=== PATIENT | female | born 1945 | race Two or more races ===

== ENCOUNTER 2024-06-29 14:49 | Outpatient (RCR) | payer OTHER, MEDICAID, SELFPAY ==
--- NOTE | 2024-07-05 01:11 | CTCCONSULT_ITS ---
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 Ramirez for the first time in consultation here at [facility] cancer [facility]. Ms. Ramirez is accompanied by her who is helping with th e translation. Ms. Ramirez recently had cholecystectomy done 8 [facility]. Surgical pat hology specimen showed stage IIIb poorly differentiated adenocarcinoma of the gallbladder. Pathology is documented below. Ms. Ramirez has recovered very well from the surgery. She denies any abdominal pain today. Denies any nausea vomiting, diarrhea or constipation. Ambulating well without any help. Has good appetite and good energy levels. HISTORY OF PRESENT ILLNESS: Kerry Ramirez is a 79-year-old SPA speaking Other female with following oncology history. 02/24/2024: Ms. Ramirez was seen here at [facility] emergency room because of right up per quadrant abdominal pain with radiation into right upper chest. 02/24/2024: CT scan of the abdomen and pelvis with IV contrast 02/25/2024: Ms. Ramirez had MRI of the abdomen without contrast as well as MRCP 02/25/2024: Ms. Ramirez is referred to [facility] for ERCP. 02/26/2024: Ms. 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 Tobacco?Use:?Denies ETOH?Use:?Denies Drug?Note:?Denies Social?History?Note:?Lives?with? [employer] HISTORY: Menarche?-?Age:?15 Menopause:?Age?54 :?6 Live?Births:?6 Age?1st?:?24 MEDICATIONS: 1. alendronate - 35 mg 1 tab Weekly 2. atorvastatin - 10 mg 1 tab Daily 3. losartan - 100 mg 1 tab Daily 4. multivitamin - 1 tab Daily?Palabra Meds? Medications Last Reconciled by Shaila Fortune RN on 04/25/2024 ALLERGIES: No Known Drug Allergies REVIEW OF SYSTEMS: Neurological: No headache, seizures or blurring of vision. Gastrointestinal: No nausea, vomiting, diarrhea or constipation. Cardiovascular: No palpitations or angina pains. Respiratory: No cough, chest pain or shortness of breath. PHYSICAL EXAMINATION: VITAL SIGNS: Temperature?100, B/P?116/69, Height?61?inches, Oxygen?Saturation?96% Weight?128?lbs PAIN: 0 - No pain EYE: Conjunctivae is white MOUTH: Oral cavity is dry. CHEST: Clear to auscultation. No wheezes or rales audible. CARDIAC: Rhythm regular, no murmurs or gallops present. ABDOMEN: Soft. No hepatomegaly. No splenomegaly. EXTREMITIES: No pedal edema or cyanosis. ASSESSMENT and plan : 1. 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 Patient is now 3-4 months since surgery and there is concern for recurrence of disease I will like to get julia biopsy and also advised patient to follow with [facility] as her approval has b een done to see haptobilary IR guided biopsy for liver lesion and if negative can do adjuvant capecitabine. Electronically Signed by: {Object.Sanct_ID*PnP.NameFL@M}, {Object.Sanct_ID*PnP.Suffix@U} D: {Object.Sanct_Date} T: {Object.Sanct_Time} CC: PCP: Josh Watkins Referring: Josh Watkins This document was completed utilizing speech recognition software. Grammatical errors, random word in sertions, pronoun errors, and incomplete sentences are an occasional consequence of this system due t o software limitations, ambient noise, and hardware issues. Any formal questions or concerns about th e content, text or information contained within the body of this dictation should be directly address ed to the provider for clarification.
== END 2024-07-22 23:59 | disposition home or self-care (01) ==
LOC: SCTC 14:49
PROVIDERS: PCP Family Medicine; Referring Provider Internal Medicine Hematology & Oncology; Visit Provider Internal Medicine Hematology & Oncology
DX: C23 Malignant neoplasm of gallbladder (principal); Z90.49 Acquired absence of other specified parts of digestive tract; R91.1 Solitary pulmonary nodule; K76.89 Other specified diseases of liver
CPT/HCPCS: 99212; G0463

== ENCOUNTER → 2024-08-01 | Outpatient (CLI) | payer OTHER, MEDICAID, SELFPAY ==
[2024-08-01 12:39] LABS: Basophils # (Auto) 0.1 Thou/mm3 (0.0-0.2); Basophils % (Auto) 1 % (0-2.5); Eosinophils # (Auto) 0.1 Thou/mm3 (0.0-0.5); Eosinophils % (Auto) 2 % (0-10); Hematocrit 38.1 % (36.0-46.0); Hemoglobin 12.5 g/dL (12.0-16.0); Immature Granulocytes % (Auto) 0 % (0-0); Immature Granulocytes Auto 0.02 Thou/mm3 (0.00-0.00); Lymphocytes # (Auto) 1.7 Thou/mm3 (1.0-4.8); Lymphocytes % (Auto) 27 % (10-50); Mean Corpuscular HGB Conc 32.8 g/dl (31.0-37.0); Mean Corpuscular Hemoglobin 28.6 pg (25.0-35.0); Mean Corpuscular Volume 87 fL (80-100); Monocytes # (Auto) 0.5 Thou/mm3 (0.0-0.8); Monocytes % (Auto) 8 % (0-12); Neutrophils # (Auto) 3.9 Thou/mm3 (1.8-7.7); Neutrophils % (Auto) 61 % (37-80); Nucleated Red Blood Cell % 0 /100 WBC (0); Platelet Count 163 Thou/mm3 (140-440); RDW Standard Deviation 50.2 fL (36.4-46.3); Red Blood Count 4.37 Miln/mm3 (4.00-5.20); White Blood Count 6.4 Thou/mm3 (3.6-11.0)
[2024-08-01 12:50] LABS: Alanine Aminotransferase 29 U/L (10-49); Albumin, Serum 4.4 gm/dL (3.4-4.8); Albumin/Globulin Ratio 1.6 (1.2-2.2); Alkaline Phosphatase 162 U/L (46-116); Anion Gap 6 (7-16); Aspartate Amino Transferase 30 U/L (0-34); BUN/Creatinine Ratio 27 Ratio (12-20); Bilirubin,Total 0.5 mg/dL (0.3-1.2); Blood Urea Nitrogen 27 mg/dL (9-23); Calcium 9.7 mg/dL (8.3-10.6); Calcium (Corrected) 9.7 mg/dL (8.5-10.1); Carbon Dioxide 27.6 mMol/L (20.0-31.0); Chloride 106 mMol/L (98-107); Globulin 2.7 gm/dL (2.3-3.5); Glucose 98 mg/dL (74-106); Osmolality,Calculated 284 (275-295); Sodium 140 mMol/L (136-145); Total Protein 7.1 gm/dL (5.7-8.2); eGFR 57 See Note
[2024-08-01 12:56] LABS: Carcinoembryonic Antigen 2.1 ng/mL (0.0-5.0)
== END | disposition home or self-care (01) ==
PROVIDERS: PCP Family Medicine; Referring Provider Internal Medicine Hematology & Oncology; Visit Provider Internal Medicine Hematology & Oncology
DX: C23 Malignant neoplasm of gallbladder (principal)
CPT/HCPCS: 36415; 80053; 82378; 85025

== ENCOUNTER → 2024-08-07 | Outpatient (CLI) | payer OTHER, MEDICAID, SELFPAY ==
--- NOTE | 2024-08-07 14:00 | XR_ITS ---
Examination: CT abdomen, without intravenous contrast. CT pelvis, without intravenous contrast. CT abdomen, with intravenous contrast. CT pelvis, with intravenous contrast. 2-D sagittal coronal reconstructions. Date and time of exam:August 07, 2024 1513 hrs. Comparison February 24, 2024 Indications: Diagnosis unspecified lump in the left breast, malignant neoplasm of the gallbladder, liver, February 2024 restaging CTDI: vol (mGy) 25.43 DLP: (mGycm) the Technique: Multiple 3.0 axial images of the abdomen and pelvis without intravenous contrast, 3.0 mm slice thickness. Multiple 3.0 postcontrast images abdomen and pelvis also obtained, post intravenous injection 60 cc Isovue-370 2-D sagittal coronal reconstructions Low dose protocols, automated exposure control, adjustment MA KV according to patient size Findings: Absent gallbladder No focal liver lesions Spleen is not enlarged No extrahepatic biliary tract dilatation No pancreatic mass Moderate bilateral renal parenchymal scar formation, no hydronephrosis Abdominal aortic calcification no aneurysmal dilatation Normal appendix No abdominal or pelvic lymphadenopathy Colonic diverticulosis Atrophic uterus No pelvic mass Contracted urinary bladder Moderate osteopenia Impression: No liver lesions, no abdominal or pelvic lymphadenopathy Moderate bilateral renal parenchymal scar formation, no hydronephrosis Normal appendix
--- NOTE | 2024-08-07 14:57 | XR_ITS ---
Examination: CT chest with intravenous contrast 2-D sagittal and coronal reconstructions Exam date and time: August 07, 2024 at 1519 hours Comparison PET/CT scan May 26, 2024 INDICATIONS: Diagnosis malignant neoplasm gallbladder, unspecified lump upper inner quadrant left breast, liver cancer diagnosis February 2024, PET/CT scan June 01, 2024 3 mm nodule left upper lobe 15 mm hypermetabolic focus anterior right lobe liver CTDI:vol (mGy) 10.5 DLP: (mGycm) 374 Technique: Multiple axial sections of the thorax have been obtained. Sections have been obtained, 3 mm slice thickness. Mediastinal and lung density settings have been obtained. Intravenous contrast administered, 60 cc Isovue-370. 2-D sagittal, coronal images obtained. Low dose protocols were performed. One or more of the following dose reduction techniques were used; automated exposure control, adjustment of the mA and/or KV according to patient size, use of iterative reconstruction technique. Findings: No thoracic aortic aneurysm dilatation No pulmonary artery emboli on this non-CTA study No paratracheal tracheobronchial or bronchopulmonary the 3 mm pulmonary nodule left upper lobe image 79 No pneumonia or pulmonary edema or pleural disease 17 mm anterior liver lesion Absent gallbladder No pancreatic mass Moderate bilateral renal parenchymal scar formation IMPRESSION: 3 mm pulmonary nodule left upper lobe, with this study as baseline recommend 1 additional 6 month follow-up CT chest without contrast
== END | disposition home or self-care (01) ==
PROVIDERS: Referring Provider Internal Medicine Hematology & Oncology; Visit Provider Internal Medicine Hematology & Oncology
DX: R91.1 Solitary pulmonary nodule (principal); N28.89 Other specified disorders of kidney and ureter; C23 Malignant neoplasm of gallbladder
CPT/HCPCS: 71260; 74178; A4649; Q9967

== ENCOUNTER 2024-09-13 15:35 | Outpatient (RCR) | payer MEDICARE, SELFPAY ==
--- NOTE | 2024-09-24 18:15 | CTCFLWUP_ITS ---
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 Ramirez recently had cholecystectomy done 8 [facility]. Surgical pathology specimen showed stage IIIb poorly differentiated adenocarcinoma of the gallbladder. Pathology is documented below. Ms. Ramirez has recovered very well from the surgery. She denies any abdominal pain today. Denies any nausea vomiting, diarrhea or constipation. Ambulating well without any help. 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 02/24/2024: Ms. Ramirez was seen here at [facility] emergency room because of right upper quadrant abdominal pain with radiation into right upper chest. 02/24/2024: CT scan of the abdomen and pelvis with IV contrast 02/25/2024: Ms. Ramirez had MRI of the abdomen without contrast as well as MRCP 02/25/2024: Ms. Ramriez is referred to [facility] for ERCP. 02/26/2024: Ms. 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 Tobacco?Use:?Denies ETOH?Use:?Denies Drug?Note:?Denies Social?History?Note:?Lives?with? CHARGE POSTER HISTORY: Menarche?-?Age:?15 Menopause:?Age?54 :?6 Live?Births:?6 Age?1st?:?24 MEDICATIONS: 1. alendronate - 35 mg 1 tab Weekly 2. atorvastatin - 10 mg 1 tab Daily 3. capecitabine - 500 mg 4 tab Twice a Day 4. losartan - 100 mg 1 tab Daily 5. multivitamin - 1 tab Daily Medications Last Reconciled by Sharonda Cabrales MA on 09/13/2024 ALLERGIES: No Known Drug Allergies REVIEW OF SYSTEMS: A complete 14-point review of systems was performed and is negative except as noted in interval history. PHYSICAL EXAMINATION: VITAL SIGNS: Temperature?98.2, B/P?124/73, Oxygen?Saturation?96% Weight?153?lbs PAIN: 0 - No pain ECOG Performance Status: 0 - Asymptomatic and fully active GENERAL APPEARANCE: Appears well, in no apparent distress, appropriately interactive. HEENT: Normocephalic, no temporal wasting, normal conjunctiva, no scleral icterus, normal hearing, lips without lesions, neck normal range of motion. CARDIOVASCULAR: Not assessed. PULMONARY: Normal respiratory effort, no respiratory distress or use of accessory muscles, speaking in full sentences, no tachypnea. EXTREMITIES: No pedal edema or cyanosis. SKIN: Normal skin appearance. NEUROLOGIC: Alert and oriented x4. PSHYCHIATRIC: Appropriate affect, mood normal, behavior normal, intact thought and speech. LABORATORY DATA: I have personally reviewed and interpreted each of the patient?s relevant lab tests, abnormal findings are below: Date 08/01/24 ??GLUCOSE,RANDOM?(mg/dL) 98 ??BLOOD?UREA?NITROGEN?(mg/dL) 27?H ??CREATININE?(mg/dL) 1.00 ??SODIUM?(mmol/L) 140 ??POTASSIUM?(mmol/L) 4.0 ??CHLORIDE?(mmol/L) 106 ??CrCl?(CandG)?(ml/min) 46.71 ??AST/SGOT?(Unit/L) 30 ??ALT/SGPT?(Unit/L) 29 ??ALKALINE?PHOSPHATASE?(Unit/L) 162?H ??BILIRUBIN,?TOTAL?(mg/dL) 0.5 ??PROTEIN?TOTAL?(gm/dl) 7.1 ??ALBUMIN,?SERUM?(gm/dl) 4.4 ??GLOBULIN?(gm/dl) 2.7 ??ALBUMIN/GLOBULIN?RATIO 1.6 ??CALCIUM,?SERUM?(mg/dL) 9.7 ??CALCIUM?SERUM?(CORRECTED)?(mg/dL) 9.7 ASSESSMENT/PLAN: Stage IIIb(pT2a, 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 Patient was ordered to start adjuvant capecitabine but patient never started therapy Patient already referred to hepatobiliary surgeon for possible debridement of gall bladder bed and liver resection CBC, CMP, AFP, CA 19?9. Patient is now 3-4 months since surgery and there is concern for recurrence of disease.patient is scheduled for biopsy at [facility] . Will see her after the biopsy ORDERS: Cbc,cmp ,cea RETURN TO CLINIC: 4 weeks BILLING AND COMPLIANCE: I reviewed external records from providers outside my specialty as summarized above. I spent a total of 50 minutes on this patient?s care on the day of their visit excluding time spent related to any billed procedures. This time includes time spent with the patient as well as time spent documenting in the medical record, reviewing patients records and tests, obtaining history, placing orders, communicating with other healthcare professionals, counseling the patient, family or caregiver, and/or care coordination for the diagnoses above. Electronically Signed by: Daniel Gentile MD T: 6:12 PM CC: PCP: Josh Watkins Referring: Josh Watkins This document was completed utilizing speech recognition software. Grammatical errors, random word insertions, pronoun errors, and incomplete sentences are an occasional consequence of this system due to software limitations, ambient noise, and hardware issues. Any formal questions or concerns about the content, text or information contained within the body of this dictation should be directly addressed to the provider for clarification.
== END 2024-09-22 23:59 | disposition home or self-care (01) ==
LOC: SCTC 15:35
PROVIDERS: PCP Family Medicine; Referring Provider Family Medicine; Visit Provider Internal Medicine Hematology & Oncology
DX: C23 Malignant neoplasm of gallbladder (principal); R91.1 Solitary pulmonary nodule; Z90.49 Acquired absence of other specified parts of digestive tract
CPT/HCPCS: 99213; G0463

== ENCOUNTER → 2024-10-31 | Outpatient (CLI) | payer MEDICARE, SELFPAY ==
[2024-10-31 12:40] LABS: Basophils # (Auto) 0.1 Thou/mm3 (0.0-0.2); Basophils % (Auto) 1 % (0-2.5); Eosinophils # (Auto) 0.2 Thou/mm3 (0.0-0.5); Eosinophils % (Auto) 3 % (0-10); Hemoglobin 13.1 g/dL (12.0-16.0); Immature Granulocytes % (Auto) 0 % (0-0); Immature Granulocytes Auto 0.02 Thou/mm3 (0.00-0.00); Lymphocytes # (Auto) 1.5 Thou/mm3 (1.0-4.8); Lymphocytes % (Auto) 25 % (10-50); Mean Corpuscular HGB Conc 32.8 g/dl (31.0-37.0); Mean Corpuscular Hemoglobin 28.6 pg (25.0-35.0); Mean Corpuscular Volume 87 fL (80-100); Monocytes # (Auto) 0.5 Thou/mm3 (0.0-0.8); Monocytes % (Auto) 7 % (0-12); Neutrophils % (Auto) 64 % (37-80); Nucleated Red Blood Cell % 0 /100 WBC (0); Platelet Count 154 Thou/mm3 (140-440); RDW Standard Deviation 44.9 fL (36.4-46.3); Red Blood Count 4.58 Miln/mm3 (4.00-5.20); White Blood Count 6.3 Thou/mm3 (3.6-11.0)
[2024-10-31 13:01] LABS: Carcinoembryonic Antigen 1.7 ng/mL (0.0-5.0)
[2024-10-31 13:03] LABS: Alanine Aminotransferase 20 U/L (10-49); Albumin, Serum 4.3 gm/dL (3.4-4.8); Albumin/Globulin Ratio 1.7 (1.2-2.2); Alkaline Phosphatase 138 U/L (46-116); Anion Gap 9 (7-16); Aspartate Amino Transferase 25 U/L (0-34); BUN/Creatinine Ratio 25 Ratio (12-20); Bilirubin,Total 0.5 mg/dL (0.3-1.2); Blood Urea Nitrogen 28 mg/dL (9-23); Calcium 9.6 mg/dL (8.3-10.6); Calcium (Corrected) 9.6 mg/dL (8.5-10.1); Carbon Dioxide 24.9 mMol/L (20.0-31.0); Chloride 108 mMol/L (98-107); Creatinine (Component) 1.1 mg/dL (0.6-1.3); Globulin 2.6 gm/dL (2.3-3.5); Glucose 101 mg/dL (74-106); Osmolality,Calculated 288 (275-295); Potassium 4.1 mMol/L (3.4-5.1); Sodium 142 mMol/L (136-145); Total Protein 6.9 gm/dL (5.7-8.2); eGFR 51 See Note
== END | disposition home or self-care (01) ==
LOC: SCTO 12:12
PROVIDERS: PCP Family Medicine; Referring Provider Internal Medicine Hematology & Oncology; Visit Provider Internal Medicine Hematology & Oncology
DX: C23 Malignant neoplasm of gallbladder (principal)
CPT/HCPCS: 36415; 80053; 82378; 85025

== ENCOUNTER 2024-11-01 15:40 | Outpatient (RCR) | payer MEDICARE, SELFPAY ==
--- NOTE | 2024-11-19 23:08 | CTCFLWUP_ITS ---
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 Ramirez recently had cholecystectomy done 8 [facility]. Surgical pathology specimen showed stage IIIb poorly differentiated adenocarcinoma of the gallbladder. Pathology is documented below. Ms. Ramirez has recovered very well from the surgery. She denies any abdominal pain today. Denies any nausea vomiting, diarrhea or constipation. Ambulating well without any help. 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 02/24/2024: Ms. Ramirez was seen here at [facility] emergency room because of right upper quadrant abdominal pain with radiation into right upper chest. 02/24/2024: CT scan of the abdomen and pelvis with IV contrast 02/25/2024: Ms. Ramirez had MRI of the abdomen without contrast as well as MRCP 02/25/2024: Ms. Ramirez is referred to [facility] for ERCP. 02/26/2024: Ms. 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 Tobacco?Use:?Denies ETOH?Use:?Denies Drug?Note:?Denies Social?History?Note:?Lives?with? 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 alendronate - 35 mg 1 tab Weekly 2. atorvastatin - 10 mg 1 tab Daily 3. capecitabine - 500 mg 4 tab Twice a Day 4. losartan - 100 mg 1 tab Daily 5. multivitamin - 1 tab Daily Medications Last Reconciled by Sharonda Cabrales MA on 11/01/2024 ALLERGIES: No Known Drug Allergies REVIEW OF SYSTEMS: A complete 14-point review of systems was performed and is negative except as noted in interval history. PHYSICAL EXAMINATION: VITAL SIGNS: Temperature?99.6, B/P?115/81, Oxygen?Saturation?95% Weight?156?lbs PAIN: 0 - No pain GENERAL APPEARANCE: Appears well, in no apparent distress, appropriately interactive. HEENT: Normocephalic, no temporal wasting, normal conjunctiva, no scleral icterus, normal hearing, lips without lesions, neck normal range of motion. CARDIOVASCULAR: Not assessed. PULMONARY: Normal respiratory effort, no respiratory distress or use of accessory muscles, speaking in full sentences, no tachypnea. EXTREMITIES: No pedal edema or cyanosis. SKIN: Normal skin appearance. NEUROLOGIC: Alert and oriented x4. PSHYCHIATRIC: Appropriate affect, mood normal, behavior normal, intact thought and speech. LABORATORY DATA: I have personally reviewed and interpreted each of the patient?s relevant lab tests, abnormal findings are below: Date 08/01/24 10/31/24 ??WHITE?BLOOD?COUNT?(Thou/mm3) ? 6.3 ??RED?BLOOD?COUNT?(Miln/mm3) ? 4.58 ??HEMOGLOBIN?(gm/dl) ? 13.1 ??HEMATOCRIT?(%) ? 40.0 ??PLATELET?COUNT?(Thou/mm3) ? 154 ??NEUTROPHILS?%,?AUTO?(%) ? 64 ??LYMPH?%,?AUTO?(%) ? 25 ??NEUTROPHILS,?AUTO?(Thou/mm3) ? 4.0 ??GLUCOSE,RANDOM?(mg/dL) 98 101 ??BLOOD?UREA?NITROGEN?(mg/dL) 27?H 28?H ??CREATININE?(mg/dL) 1.00 1.10 ??SODIUM?(mmol/L) 140 142 ??POTASSIUM?(mmol/L) 4.0 4.1 ??CHLORIDE?(mmol/L) 106 108?H ??CrCl?(CandG)?(ml/min) 46.71 38.09 ??AST/SGOT?(Unit/L) 30 25 ??ALT/SGPT?(Unit/L) 29 20 ??ALKALINE?PHOSPHATASE?(Unit/L) 162?H 138?H ??BILIRUBIN,?TOTAL?(mg/dL) 0.5 0.5 ??PROTEIN?TOTAL?(gm/dl) 7.1 6.9 ??ALBUMIN,?SERUM?(gm/dl) 4.4 4.3 ??GLOBULIN?(gm/dl) 2.7 2.6 ??ALBUMIN/GLOBULIN?RATIO 1.6 1.7 ??CALCIUM,?SERUM?(mg/dL) 9.7 9.6 ??CALCIUM?SERUM?(CORRECTED)?(mg/dL) 9.7 9.6 ??CEA?(O*)?(ng/ml) ? 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 Patient was ordered to start adjuvant capecitabine but patient never started therapy Patient already referred to hepatobiliary surgeon for possible debridement of gall bladder bed and liver resection CBC, CMP, AFP, CA 19?9. Patient is now 3-4 months since surgery and there is concern for recurrence of disease.patient is scheduled for biopsy at [facility] . Patient had her biopsy and was that the [facility] will call her She is till to get results Follow up after the results ORDERS: Please get records from [facility] for biopsy,result,imaging ,notes RETURN TO CLINIC: 6 weeks BILLING AND COMPLIANCE: I reviewed external records from providers outside my specialty as summarized above. I spent a total of 50 minutes on this patient?s care on the day of their visit excluding time spent related to any billed procedures. This time includes time spent with the patient as well as time spent documenting in the medical record, reviewing patients records and tests, obtaining history, placing orders, communicating with other healthcare professionals, counseling the patient, family or caregiver, and/or care coordination for the diagnoses above. Electronically Signed by: Daniel Gentile MD T: 11:05 PM CC: PCP: Josh Watkins Referring: Josh Watkins This document was completed utilizing speech recognition software. Grammatical errors, random word insertions, pronoun errors, and incomplete sentences are an occasional consequence of this system due to software limitations, ambient noise, and hardware issues. Any formal questions or concerns about the content, text or information contained within the body of this dictation should be directly addressed to the provider for clarification.
== END 2024-11-20 23:59 | disposition home or self-care (01) ==
LOC: SCTC 15:40
PROVIDERS: PCP Family Medicine; Referring Provider Family Medicine; Visit Provider Internal Medicine Hematology & Oncology
DX: C23 Malignant neoplasm of gallbladder (principal); Z90.49 Acquired absence of other specified parts of digestive tract; R91.1 Solitary pulmonary nodule; K76.89 Other specified diseases of liver
CPT/HCPCS: 99212; G0463

== ENCOUNTER → 2025-01-02 | Outpatient (CLI) | payer MEDICARE, MEDICAID, SELFPAY ==
[2025-01-02 10:58] LABS: Vitamin D 25 Hydroxy Total 91.2 ng/mL (7.3-40.2)
[2025-01-02 11:01] LABS: Alanine Aminotransferase 18 U/L (10-49); Albumin, Serum 4.5 gm/dL (3.4-4.8); Albumin/Globulin Ratio 1.6 (1.2-2.2); Alkaline Phosphatase 111 U/L (46-116); Anion Gap 13 (7-16); Aspartate Amino Transferase 24 U/L (0-34); BUN/Creatinine Ratio 24 Ratio (12-20); Blood Urea Nitrogen 24 mg/dL (9-23); Calcium 8.9 mg/dL (8.3-10.6); Calcium (Corrected) 8.9 mg/dL (8.5-10.1); Carbon Dioxide 21.4 mMol/L (20.0-31.0); Cardiac Risk Estimate 3.4 RATIO (3.7-5.6); Chloride 109 mMol/L (98-107); Cholesterol 175 mg/dL (132-200); Free T4 (Free Thyroxine) 1.16 ng/dL (0.89-1.76); Globulin 2.8 gm/dL (2.3-3.5); Glucose 103 mg/dL (74-106); HDL Cholesterol 51 mg/dL (40-60); LDL Cholesterol,Calculated 102 mg/dL (0-130); Osmolality,Calculated 288 (275-295); Potassium 3.9 mMol/L (3.4-5.1); Sodium 143 mMol/L (136-145); Thyroid Stimulating Hormone 3.39 uIU/mL (0.55-4.78); Total Protein 7.3 gm/dL (5.7-8.2); Triglycerides 111 mg/dL (30-150); eGFR 57 See Note
== END | disposition home or self-care (01) ==
LOC: COPL 09:04
PROVIDERS: PCP Family Medicine; Referring Provider Family Medicine; Visit Provider Family Medicine
DX: E78.1 Pure hyperglyceridemia (principal); E55.9 Vitamin D deficiency, unspecified; E03.2 Hypothyroidism due to medicaments and other exogenous substances; Z13.1 Encounter for screening for diabetes mellitus
CPT/HCPCS: 36415; 80053; 80061; 82306; 84439; 84443

== ENCOUNTER → 2025-01-03 | Outpatient (CLI) | payer MEDICARE, MEDICAID, SELFPAY ==
[2025-01-01 15:06] VITALS: BMI 30.2
[2025-01-02 15:37] LABS: Basophils # (Auto) 0.1 Thou/mm3 (0.0-0.2); Basophils % (Auto) 1 % (0-2.5); Eosinophils # (Auto) 0.1 Thou/mm3 (0.0-0.5); Eosinophils % (Auto) 2 % (0-10); Hemoglobin 12.9 g/dL (12.0-16.0); Immature Granulocytes % (Auto) 0 % (0-0); Immature Granulocytes Auto 0.01 Thou/mm3 (0.00-0.00); Lymphocytes # (Auto) 1.5 Thou/mm3 (1.0-4.8); Lymphocytes % (Auto) 24 % (10-50); Mean Corpuscular HGB Conc 33.9 g/dl (31.0-37.0); Mean Corpuscular Hemoglobin 28.5 pg (25.0-35.0); Mean Corpuscular Volume 84 fL (80-100); Monocytes # (Auto) 0.5 Thou/mm3 (0.0-0.8); Monocytes % (Auto) 8 % (0-12); Neutrophils % (Auto) 64 % (37-80); Nucleated Red Blood Cell % 0 /100 WBC (0); Platelet Count 125 Thou/mm3 (140-440); RDW Standard Deviation 45.5 fL (36.4-46.3); Red Blood Count 4.52 Miln/mm3 (4.00-5.20); White Blood Count 6.2 Thou/mm3 (3.6-11.0)
[2025-01-02 15:45] LABS: Partial Thromboplastin Time 26.9 Seconds (22.0-36.0); Prothrombin Time 10.9 Seconds (9.0-12.2)
[2025-01-03] VITALS (8 sets, daily range): BP systolic 150–185; BP diastolic 89–108; PULSE 66–86; RESP 17–22; TEMP 36.2–36.8; O2SAT 94–100
--- NOTE | 2025-01-03 09:30 | XR_ITS ---
Examination: IR venous implantation Port-A-Cath Ultrasound-guided needle placement right internal jugular vein. Fluoroscopy AP Chest, portable single view Exam date and time: Diagnosis malignant neoplasm gallbladder requiring long-term intravenous chemotherapy. Informed consent provided Technique: A timeout was completed, verifying correct patient, procedure, site, positioning, and special equipment if applicable The patient was placed in a dependent position appropriate for central line placement based on the vein to be cannulated. The patient's neck was prepped and draped in sterile fashion. Maximum Sterile Barrier Technique used including cap, mask, sterile gown, sterile gloves, and sterile full body drape. If ultrasound technique used: sterile gel and sterile probe covers. Hand Hygiene performed using proper scrub, soap and water, or alcohol-based hand rub. Site right portable apparatus utilized to confirm patency of the right internal jugular vein, utilizing ultrasonographic guidance successful 21-gauge needle puncture into the right internal jugular vein Ultrasound images were recorded and stored. Successful micropuncture with a 21-gauge needle was performed. 0.18 wire guide was introduced into the IVC under fluoroscopic guidance. Blunt dissection utilized to form Port-A-Cath pocket in the subcutaneous tissue upper right chest 8 [place] 21 cm Port-A-Cath line then placed through a venous sheath into the superior vena cava and connected to the Port-A-Cath reservoir The attending radiologist was present for the entire procedure Estimated blood loss2 cc. Findings: Under fluoroscopy, the tip of the Port-A-Cath is in good position in the vena cava. Portable chest x-ray, post Port-A-Cath placement, as ordered. Impression: Successful ultrasound-guided needle placement right internal jugular vein. Successful IR venous implantation Port-A-Cath Fluoroscopy 0.1 minute radiation dose 1.07 milligray 1 spot fluoroscopic chest film. AP portable chest completion procedure demonstrates satisfactory position Port-A-Cath tip SVC. May use Port-A-Cath.
[2025-01-03] MEDS: ceFAZolin INJ 1 GM VIAL STFIELD (11:00)
[2025-01-03] MEDS: HEPARIN SOD LOCK SYR 100 UNIT/ML 500 UNIT STFIELD (11:00)
[2025-01-03] MEDS: ceFAZolin/D5W 1 GM IVPB 1 GM/50 ML BAG IV (11:15)
[2025-01-03] MEDS: fentaNYL CIT INJ 50 mCg/ML AMP 2ML 125 MCG IVP (11:43)
[2025-01-03] MEDS: LIDOCAINE 1% W/EPI 1:100K 20 ML VIAL 6 ML INFL (11:45)
[2025-01-03] MEDS: LIDOCAINE INJ PF 1% 30 ML VIAL 7 ML INFL (11:45)
== END | disposition home or self-care (01) ==
PROVIDERS: Radiology Diagnostic Radiology; PCP Family Medicine; Referring Provider Internal Medicine Hematology & Oncology; Visit Provider Internal Medicine Hematology & Oncology
DX: C23 Malignant neoplasm of gallbladder (principal); Z01.812 Encounter for preprocedural laboratory examination
CPT/HCPCS: 36571; 36415; 76937; 77001; 85025; 85610; 85730; C1769; C1788; C1894; J0689; J0690; J1642; J3010; J3490; J7050

== ENCOUNTER → 2025-01-12 | Outpatient (CLI) | payer MEDICARE, MEDICAID, SELFPAY ==
--- NOTE | 2025-01-12 09:42 | XR_ITS ---
Examination: IR staple removal Port-A-Cath incision site Date and time: January 12, 2025 0942 hours INDICATIONS: IR venous implantation Port-A-Cath January 03, 2025, patient returns for removal of barbara Technique an findings: Sterile drape applied after skin prepped over the Port-A-Cath incision site and hygiene Successful removal of the barbara at the incision site with no blood loss IMPRESSION: Successful IR staple removal Port-A-Cath incision site
--- NOTE | 2025-01-12 10:04 | PC.NURSE ---
patient arrived for staple removal. seven barbara removed. patient tolerated well. site is soft, flat, nontender, and no signs of hematoma as well as no signs of infection. education given to patient. patient expressed verbal understanding.
== END | disposition home or self-care (01) ==
PROVIDERS: PCP Internal Medicine Hematology & Oncology; Referring Provider Radiology Diagnostic Radiology; Visit Provider Radiology Diagnostic Radiology
DX: Z48.02 Encounter for removal of sutures (principal)

== ENCOUNTER 2025-01-17 07:45 | Outpatient (RCR) | payer MEDICARE, MEDICAID, SELFPAY ==
--- NOTE | 2024-12-26 06:24 | CTCFLWUP_ITS ---
Patient: KERRY RAMIREZ : 1945 Page 4 of 5 FOLLOW UP NOTE DATE OF SERVICE: 12/25/2024 NAME: KERRY RAMIREZ ACCOUNT: [id number] : 1945 AGE: 79 INTERVAL HISTORY: Visit summary Kerry Ramirez, a female with stage 4 gallbladder adenocarcinoma, presented for chemotherapy discussion. Her history includes T2N1 gallbladder adenocarcinoma diagnosed February 2024 following cholecystectomy, with subsequent PET-CT showing liver and lung lesions. Diagnostic laparoscopy in September 2024 confirmed peritoneal disease. Recent CT showed decreased liver lesion size (1.3 cm) with no new metastases. Treatment plan includes initiating cisplatin, gemcitabine, and durvalumab chemotherapy, port placement, baseline hearing test, IV hydration, and follow-up imaging after 4 cycles. Subjective Chief Complaint Follow-up for stage 4 gallbladder cancer, discussion of chemotherapy treatment History of Present Illness Kerry Ramirez is a patient with a history of gallbladder adenocarcinoma presenting for follow-up and discussion of chemotherapy treatment. The patient was diagnosed with stage 4 gallbladder cancer in September 2024 following a gallstone and choledocholithiasis surgery performed on February 25, 2024. The pa thology report from the surgery revealed a 1.2 cm T2N1 gallbladder adenocarcinoma with negative margins. Following her initial diagnosis, the patient underwent a PET-CT scan on June 01, 2024, which showed a 3 mm left upper lobe lung nodule and a 15 mm right anterior liver lesion concerning for metastatic disease. She was subsequently referred for surgical evaluation, and on October 09, 2024, underwent a diagnostic laparoscopy. During the procedure, studding along the falciform ligament was found, indicating peritoneal disease. Pathology confirmed malignancy. The patient was then referred for therapeutic discussion, where gemcitabine and durvalumab treatment for 6 months, followed by durvalumab maintenance, was recommended based on the TOPAZ-[address] trial. A recent CT scan showed a decrease in the size of the liver lesion to 1.3 cm, with no new or enlarging metastases. The patient has not yet started chemotherapy, despite recommendations from [place] in September to begin IV chemotherapy. She is now presenting to discuss and potentially initiate chemotherapy treatment. Medical History - Gallbladder adenocarcinoma, stage 4, diagnosed in September 2024 - Gallstone and choledocholithiasis, diagnosed on February 25, 2024 Surgical History - Diagnostic laparoscopy on 10-09-2024, revealing peritoneal disease - Cholecystectomy on 02-25-2024 for gallstone and choledocholithiasis, without bile spillage Medications and Supplements - Capecitabine - Offered previously but not started. Social History - Living Situation: Patient has a Objective Laboratory, Imaging, and Diagnostic Test Results - PET-CT scan (06/01/2024): - 3 mm left upper lobe lung nodule - 15 mm right anterior liver lesion - Diagnostic laparoscopy (10/09/2024): - Intraoperative findings: Studding along the falciform ligament - Pathology: Consistent with malignancy - CA 19-9: Not measurable - CEA: Normal (specific value not provided) - CT scan (date not specified, after previous scan): - Liver lesion decreased to 1.3 cm - No new or enlarging metastases ONCOLOGY HISTORY: DIAGNOSIS: Stage IV adenocarcinoma of gallbladder Initially stage IIIb(pT2a, PN 1, 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 Ramirez recently had cholecystectomy done 8 [facility]. Surgical pathology specimen showed stage IIIb poorly differentiated adenocarcinoma of the gallbladder. Pathology is documented below. Ms. Ramirez has recovered very well from the surgery. She denies any abdominal pain today. Denies any nausea vomiting, diarrhea or constipation. Ambulating well without any help. Has good appetite and good energy level DATE OF DIAGNOSIS: 02/26/2024 STAGE/TNM: Stage IIIb(pT2a, PN 1, M0) poorly differentiated adenocarcinoma of the gallbladder, s/p cholecystectomy September 2024 confirmed as stage IV TREATMENT HISTORY: Care?Plan Start?Date Cycle Day Intent Durvalumab,?cisplatin?and?gemcitabine?cholangiocarcinoma?regimen?1 12/25/2024 1 21 Palliative HISTORY OF PRESENT ILLNESS: Kerry Ramirez is a 79-year-old SPA speaking Other female with following oncology history. 02/24/2024: Ms. Ramirez was seen here at [facility] emergency room because of right upper quadrant abdominal pain with radiation into right upper chest. 02/24/2024: CT scan of the abdomen and pelvis with IV contrast 02/25/2024: Ms. Ramirez had MRI of the abdomen without contrast as well as MRCP 02/25/2024: Ms. Ramirez is referred to [facility] for ERCP. 02/26/2024: Ms. 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 Tobacco?Use:?Denies ETOH?Use:?Denies Drug?Note:?Denies Social?History?Note:?Lives?with? SOFTWARE DESIGN ENGINEER HISTORY: Menarche?-?Age:?15 Menopause:?Age?54 :?6 Live?Births:?6 Age?1st?:?24 MEDICATIONS: 1. alendronate - 35 mg 1 tab Weekly 2. atorvastatin - 10 mg 1 tab Daily 3. losartan - 100 mg 1 tab Daily Medications Last Reconciled by Griselda Gomez MA on 12/25/2024 ALLERGIES: No Known Drug Allergies REVIEW OF SYSTEMS: A complete 14-point review of systems was performed and is negative except as noted in interval history. PHYSICAL EXAMINATION: VITAL SIGNS: Temperature?98, B/P?138/81, Oxygen?Saturation?96% PAIN: 0 - No pain GENERAL APPEARANCE: Appears well, in no apparent distress, appropriately interactive. HEENT: Normocephalic, no temporal wasting, normal conjunctiva, no scleral icterus, normal hearing, lips without lesions, neck normal range of motion. CARDIOVASCULAR: Not assessed. PULMONARY: Normal respiratory effort, no respiratory distress or use of accessory muscles, speaking in full sentences, no tachypnea. EXTREMITIES: No pedal edema or cyanosis. SKIN: Normal skin appearance. NEUROLOGIC: Alert and oriented x4. PSHYCHIATRIC: Appropriate affect, mood normal, behavior normal, intact thought and speech. LABORATORY DATA: I have personally reviewed and interpreted each of the patient?s relevant lab tests, abnormal findings are below: Date 08/01/24 10/31/24 ??WHITE?BLOOD?COUNT?(Thou/mm3) ? 6.3 ??RED?BLOOD?COUNT?(Miln/mm3) ? 4.58 ??HEMOGLOBIN?(gm/dl) ? 13.1 ??HEMATOCRIT?(%) ? 40.0 ??PLATELET?COUNT?(Thou/mm3) ? 154 ??NEUTROPHILS?%,?AUTO?(%) ? 64 ??LYMPH?%,?AUTO?(%) ? 25 ??NEUTROPHILS,?AUTO?(Thou/mm3) ? 4.0 ??GLUCOSE,RANDOM?(mg/dL) 98 101 ??BLOOD?UREA?NITROGEN?(mg/dL) 27?H 28?H ??CREATININE?(mg/dL) 1.00 1.10 ??SODIUM?(mmol/L) 140 142 ??POTASSIUM?(mmol/L) 4.0 4.1 ??CHLORIDE?(mmol/L) 106 108?H ??CrCl?(CandG)?(ml/min) 46.71 38.09 ??AST/SGOT?(Unit/L) 30 25 ??ALT/SGPT?(Unit/L) 29 20 ??ALKALINE?PHOSPHATASE?(Unit/L) 162?H 138?H ??BILIRUBIN,?TOTAL?(mg/dL) 0.5 0.5 ??PROTEIN?TOTAL?(gm/dl) 7.1 6.9 ??ALBUMIN,?SERUM?(gm/dl) 4.4 4.3 ??GLOBULIN?(gm/dl) 2.7 2.6 ??ALBUMIN/GLOBULIN?RATIO 1.6 1.7 ??CALCIUM,?SERUM?(mg/dL) 9.7 9.6 ??CALCIUM?SERUM?(CORRECTED)?(mg/dL) 9.7 9.6 ??CEA?(O*)?(ng/ml) ? 1.7 ASSESSMENT/PLAN: Initially presented as stage IIIb(pT2a, 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 Patient was advised to start adjuvant capecitabine but patient never started therapy. Patient waited as family wanted to confirm with [place] before starting chemotherapy. Patient was seen by Dr. Chan hepatobiliary surgeon for possible debridement of gall bladder bed and liver resection. Patient underwent laparoscopy which confirmed peritoneal lesions as stage IV gallbladder cancer. Patient is now here to start chemotherapy as per [place] recommendation Kerry Ramirez is a patient with stage 4 gallbladder adenocarcinoma, initially diagnosed in February 2024, who has been recommended to start chemotherapy. Stage 4 Gallbladder Adenocarcinoma Assessment: Patient was initially diagnosed with T2N1 gallbladder adenocarcinoma (1.2 cm) in February 2024 following surgery for gallstone and choledocholithiasis. She did not receive adjuvant chemotherapy at that time. A PET-CT scan in May 2024 revealed a 3 mm left upper lobe lung nodule and a 15 mm right anterior liver lesion concerning for metastatic disease. Diagnostic laparoscopy in September 2024 confirmed peritoneal disease. Recent CT scan showed a decrease in the size of the liver lesion to 1.3 cm, with no new or enlarging metastases. The patient has been recommended to start chemotherapy, which should have been initiated earlier based on the September recommendation from [place]. Plan: - Order CT scan of chest, abdomen, and pelvis with IV contrast - Order tumor markers: CEA and CA99 - Schedule port catheter placement for chemotherapy infusion - Initiate chemotherapy regimen: cisplatin, gemcitabine, and durvalumab - Perform baseline hearing test - Provide IV hydration during chemotherapy to prevent renal injury - Advise patient to drink 2-3 liters of water daily - Repeat scan after 4 cycles to assess response - Monitor thyroid function with TSH and T4 labs - Schedule follow-up appointment in 4 weeks - Instruct patient to call Nesha after 7 days for approval follow-up Informed consent: Risks of chemotherapy including nausea, vomiting, neuropathy, and hearing loss were discussed. Patient's consented to proceed with chemotherapy. RETURN TO CLINIC: 4 weeks BILLING AND COMPLIANCE: I reviewed external records from providers outside my specialty as summarized above. I spent a total of 50 minutes on this patient?s care on the day of their visit excluding time spent related to any billed procedures. This time includes time spent with the patient as well as time spent documenting in the medical record, reviewing patients records and tests, obtaining history, placing orders, communicating with other healthcare professionals, counseling the patient, family or caregiver, and/or care coordination for the diagnoses above. Electronically Signed by: Daniel Gentile MD T: 6:21 AM CC: PCP: Josh Watkins Referring: Josh Watkins This document was completed utilizing speech recognition software. Grammatical errors, random word insertions, pronoun errors, and incomplete sentences are an occasional consequence of this system due to software limitations, ambient noise, and hardware issues. Any formal questions or concerns about the content, text or information contained within the body of this dictation should be directly addressed to the provider for clarification.
== END 2025-01-20 23:59 | disposition home or self-care (01) ==
LOC: SCTC 07:45
PROVIDERS: PCP Family Medicine; Referring Provider Family Medicine; Visit Provider Internal Medicine Hematology & Oncology
DX: C23 Malignant neoplasm of gallbladder (principal); C78.7 Secondary malignant neoplasm of liver and intrahepatic bile duct; Z90.49 Acquired absence of other specified parts of digestive tract
CPT/HCPCS: 36591; 99213; A4216; J1642; G0463

== ENCOUNTER → 2025-01-22 | Outpatient (CLI) | payer MEDICARE, MEDICAID, SELFPAY ==
--- NOTE | 2025-01-22 11:30 | XR_ITS ---
Examination: CT chest, without intravenous contrast. CT abdomen, without intravenous contrast. CT pelvis, without intravenous contrast. CT chest without intravenous contrast CT abdomen without intravenous contrast CT pelvis without intravenous contrast 2-D sagittal and coronal reconstructions. 3-D reconstructions. Date and time of exam:January 22, 2025 1249 hours Comparison August 07, 2024, MRI abdomen June 20, 2024, PET CT scan June 01, 2024 INDICATIONS: Diagnosis malignant neoplasm gallbladder liver cancer February 2024, restaging, 3 mm pulmonary nodule left upper lobe on CT chest August 07, 2024 CTDI vol (mgy) 18.9 DLP ([id number])1270 Technique: Multiple CT images, 3.0 mm slice thickness, obtained chest, abdomen, pelvis, with the high-resolution 64 slice scanner.. Sagittal and coronal 2-D reconstructions are obtained. 3-D reconstructions Low dose protocols were performed. One or more of the following dose reduction techniques were used; automated exposure control, adjustment of the mA and/or KV according to patient size, use of iterative reconstruction technique. Findings: Thoracic aortic calcification no aneurysmal dilatation Pulmonary artery segments are not enlarged No paratracheal tracheobronchial or bronchopulmonary adenopathy Stable 3 mm pulmonary nodule left upper lobe, no new pulmonary nodules No pneumonia or pulmonary edema or pleural disease 15 mm nonenhancing cystic-appearing lesion anterior upper right lobe of the liver on the postcontrast images No abnormal enhancing liver lesion Absent gallbladder 11 mm splenic cyst Common hepatic duct 11 mm no common bile duct common hepatic duct stones Moderate renal parenchymal scar formation, no hydronephrosis No abdominal or pelvic lymphadenopathy 18 mm umbilical hernia defect containing colon, the bowel loop is not incarcerated no bowel obstruction Colonic diverticulosis Retroverted atrophic uterus Urinary bladder intact Moderate osteopenia IMPRESSION: Stable 3 mm pulmonary nodule left upper lobe, no new pulmonary nodules 15 mm nonenhancing cystic-appearing lesion anterior right upper lobe of the liver on the postcontrast images, no abnormal enhancing liver lesions No interval abdominal or pelvic lymphadenopathy 18 mm umbilical hernia defect containing transverse colon, the bowel is not incarcerated, no bowel obstruction
== END | disposition home or self-care (01) ==
PROVIDERS: PCP Family Medicine; Referring Provider Internal Medicine Hematology & Oncology; Visit Provider Internal Medicine Hematology & Oncology
DX: R91.8 Other nonspecific abnormal finding of lung field (principal); K76.89 Other specified diseases of liver; K42.9 Umbilical hernia without obstruction or gangrene; C23 Malignant neoplasm of gallbladder
CPT/HCPCS: 71270; 74178; A4649; Q9967

== ENCOUNTER → 2025-03-16 | Outpatient (CLI) | payer MEDICARE, MEDICAID, SELFPAY ==
[2025-03-16 09:42] LABS: Free T4 (Free Thyroxine) 1.29 ng/dL (0.89-1.76); Thyroid Stimulating Hormone 4.00 uIU/mL (0.55-4.78)
== END | disposition home or self-care (01) ==
LOC: COPL 08:18
PROVIDERS: PCP Family Medicine; Referring Provider Family Medicine; Visit Provider Family Medicine
DX: E03.2 Hypothyroidism due to medicaments and other exogenous substances (principal)
CPT/HCPCS: 36415; 84439; 84443

== ENCOUNTER 2025-03-22 09:19 | Outpatient (RCR) | payer MEDICARE, MEDICAID, SELFPAY ==
[2025-02-20 08:48] LABS: Basophils # (Auto) 0.0 Thou/mm3 (0.0-0.2); Basophils % (Auto) 1 % (0-2.5); Eosinophils # (Auto) 0.1 Thou/mm3 (0.0-0.5); Eosinophils % (Auto) 2 % (0-10); Hematocrit 36.8 % (36.0-46.0); Hemoglobin 12.5 g/dL (12.0-16.0); Immature Granulocytes Auto 0.03 Thou/mm3 (0.00-0.00); Lymphocytes # (Auto) 1.7 Thou/mm3 (1.0-4.8); Lymphocytes % (Auto) 30 % (10-50); Mean Corpuscular HGB Conc 34.0 g/dl (31.0-37.0); Mean Corpuscular Hemoglobin 29.1 pg (25.0-35.0); Mean Corpuscular Volume 86 fL (80-100); Monocytes # (Auto) 0.6 Thou/mm3 (0.0-0.8); Monocytes % (Auto) 10 % (0-12); Neutrophils # (Auto) 3.2 Thou/mm3 (1.8-7.7); Neutrophils % (Auto) 57 % (37-80); Nucleated Red Blood Cell # 0.00 Thou/mm3 (0.00-0.00); Nucleated Red Blood Cell % 0 /100 WBC (0); Platelet Count 168 Thou/mm3 (140-440); RDW Standard Deviation 44.9 fL (36.4-46.3); Red Blood Count 4.29 Miln/mm3 (4.00-5.20); White Blood Count 5.5 Thou/mm3 (3.6-11.0)
[2025-02-20 09:01] LABS: Magnesium 2.1 mg/dL (1.6-2.6)
[2025-02-20 09:05] LABS: Alanine Aminotransferase 17 U/L (10-49); Albumin, Serum 4.4 gm/dL (3.4-4.8); Albumin/Globulin Ratio 1.8 (1.2-2.2); Alkaline Phosphatase 124 U/L (46-116); Anion Gap 6 (7-16); Aspartate Amino Transferase 22 U/L (0-34); BUN/Creatinine Ratio 12 Ratio (12-20); Bilirubin,Total 0.7 mg/dL (0.3-1.2); Blood Urea Nitrogen 12 mg/dL (9-23); Calcium 9.1 mg/dL (8.3-10.6); Calcium (Corrected) 9.1 mg/dL (8.5-10.1); Carbon Dioxide 23.7 mMol/L (20.0-31.0); Chloride 112 mMol/L (98-107); Creatinine (Component) 1.0 mg/dL (0.6-1.3); Free T4 (Free Thyroxine) 1.30 ng/dL (0.89-1.76); Globulin 2.5 gm/dL (2.3-3.5); Glucose 95 mg/dL (74-106); Osmolality,Calculated 282 (275-295); Potassium 3.8 mMol/L (3.4-5.1); Sodium 142 mMol/L (136-145); Thyroid Stimulating Hormone 3.93 uIU/mL (0.55-4.78); Total Protein 6.9 gm/dL (5.7-8.2); eGFR 57 See Note
[2025-02-27 10:47] LABS: Magnesium 1.7 mg/dL (1.6-2.6)
[2025-02-27 10:52] LABS: Basophils # (Auto) 0.1 Thou/mm3 (0.0-0.2); Basophils % (Auto) 3 % (0-2.5); Eosinophils # (Auto) 0.0 Thou/mm3 (0.0-0.5); Eosinophils % (Auto) 1 % (0-10); Hematocrit 33.7 % (36.0-46.0); Hemoglobin 11.5 g/dL (12.0-16.0); Immature Granulocytes Auto 0.12 Thou/mm3 (0.00-0.00); Lymphocytes # (Auto) 1.1 Thou/mm3 (1.0-4.8); Lymphocytes % (Auto) 39 % (10-50); Mean Corpuscular HGB Conc 34.1 g/dl (31.0-37.0); Mean Corpuscular Hemoglobin 29.0 pg (25.0-35.0); Mean Corpuscular Volume 85 fL (80-100); Monocytes # (Auto) 0.3 Thou/mm3 (0.0-0.8); Monocytes % (Auto) 11 % (0-12); Neutrophils # (Auto) 1.2 Thou/mm3 (1.8-7.7); Neutrophils % (Auto) 43 % (37-80); Nucleated Red Blood Cell # 0.00 Thou/mm3 (0.00-0.00); Nucleated Red Blood Cell % 0 /100 WBC (0); Platelet Count 238 Thou/mm3 (140-440); RDW Standard Deviation 45.4 fL (36.4-46.3); Red Blood Count 3.97 Miln/mm3 (4.00-5.20)
[2025-02-27 10:53] LABS: Alanine Aminotransferase 21 U/L (10-49); Albumin, Serum 4.3 gm/dL (3.4-4.8); Albumin/Globulin Ratio 1.9 (1.2-2.2); Alkaline Phosphatase 137 U/L (46-116); Anion Gap 9 (7-16); Aspartate Amino Transferase 23 U/L (0-34); BUN/Creatinine Ratio 14 Ratio (12-20); Bilirubin,Total 0.4 mg/dL (0.3-1.2); Blood Urea Nitrogen 14 mg/dL (9-23); Calcium 9.0 mg/dL (8.3-10.6); Calcium (Corrected) 9.0 mg/dL (8.5-10.1); Carbon Dioxide 24.8 mMol/L (20.0-31.0); Chloride 105 mMol/L (98-107); Creatinine (Component) 1.0 mg/dL (0.6-1.3); Free T4 (Free Thyroxine) 1.17 ng/dL (0.89-1.76); Globulin 2.3 gm/dL (2.3-3.5); Glucose 99 mg/dL (74-106); Osmolality,Calculated 278 (275-295); Potassium 3.4 mMol/L (3.4-5.1); Sodium 139 mMol/L (136-145); Thyroid Stimulating Hormone 3.17 uIU/mL (0.55-4.78); Total Protein 6.6 gm/dL (5.7-8.2); eGFR 57 See Note
[2025-02-27 12:05] LABS: White Blood Count 2.8 Thou/mm3 (3.6-11.0)
[2025-03-13 13:51] LABS: Basophils # (Auto) 0.1 Thou/mm3 (0.0-0.2); Basophils % (Auto) 1 % (0-2.5); Eosinophils # (Auto) 0.1 Thou/mm3 (0.0-0.5); Eosinophils % (Auto) 1 % (0-10); Hematocrit 33.2 % (36.0-46.0); Hemoglobin 11.2 g/dL (12.0-16.0); Immature Granulocytes Auto 0.04 Thou/mm3 (0.00-0.00); Lymphocytes # (Auto) 1.4 Thou/mm3 (1.0-4.8); Lymphocytes % (Auto) 20 % (10-50); Mean Corpuscular HGB Conc 33.7 g/dl (31.0-37.0); Mean Corpuscular Hemoglobin 29.8 pg (25.0-35.0); Mean Corpuscular Volume 88 fL (80-100); Monocytes # (Auto) 0.9 Thou/mm3 (0.0-0.8); Monocytes % (Auto) 13 % (0-12); Neutrophils # (Auto) 4.4 Thou/mm3 (1.8-7.7); Neutrophils % (Auto) 64 % (37-80); Nucleated Red Blood Cell # 0.00 Thou/mm3 (0.00-0.00); Nucleated Red Blood Cell % 0 /100 WBC (0); Platelet Count 130 Thou/mm3 (140-440); RDW Standard Deviation 51.0 fL (36.4-46.3); Red Blood Count 3.76 Miln/mm3 (4.00-5.20); White Blood Count 6.9 Thou/mm3 (3.6-11.0)
[2025-03-13 14:09] LABS: Magnesium 1.5 mg/dL (1.6-2.6)
[2025-03-13 14:15] LABS: Alanine Aminotransferase 12 U/L (10-49); Albumin, Serum 4.2 gm/dL (3.4-4.8); Albumin/Globulin Ratio 1.7 (1.2-2.2); Alkaline Phosphatase 114 U/L (46-116); Anion Gap 11 (7-16); Aspartate Amino Transferase 23 U/L (0-34); BUN/Creatinine Ratio 15 Ratio (12-20); Bilirubin,Total 0.5 mg/dL (0.3-1.2); Blood Urea Nitrogen 15 mg/dL (9-23); Calcium 8.8 mg/dL (8.3-10.6); Calcium (Corrected) 8.8 mg/dL (8.5-10.1); Carbon Dioxide 22.3 mMol/L (20.0-31.0); Chloride 103 mMol/L (98-107); Creatinine (Component) 1.0 mg/dL (0.6-1.3); Free T4 (Free Thyroxine) 1.34 ng/dL (0.89-1.76); Globulin 2.5 gm/dL (2.3-3.5); Glucose 82 mg/dL (74-106); Osmolality,Calculated 271 (275-295); Potassium 3.6 mMol/L (3.4-5.1); Sodium 136 mMol/L (136-145); Thyroid Stimulating Hormone 1.74 uIU/mL (0.55-4.78); Total Protein 6.7 gm/dL (5.7-8.2); eGFR 57 See Note
[2025-03-20 15:59] LABS: Basophils # (Auto) 0.1 Thou/mm3 (0.0-0.2); Basophils % (Auto) 3 % (0-2.5); Eosinophils # (Auto) 0.1 Thou/mm3 (0.0-0.5); Eosinophils % (Auto) 2 % (0-10); Hematocrit 32.7 % (36.0-46.0); Hemoglobin 10.9 g/dL (12.0-16.0); Immature Granulocytes Auto 0.16 Thou/mm3 (0.00-0.00); Lymphocytes # (Auto) 1.4 Thou/mm3 (1.0-4.8); Lymphocytes % (Auto) 44 % (10-50); Mean Corpuscular HGB Conc 33.3 g/dl (31.0-37.0); Mean Corpuscular Hemoglobin 29.6 pg (25.0-35.0); Mean Corpuscular Volume 89 fL (80-100); Monocytes # (Auto) 0.3 Thou/mm3 (0.0-0.8); Monocytes % (Auto) 10 % (0-12); Neutrophils # (Auto) 1.1 Thou/mm3 (1.8-7.7); Neutrophils % (Auto) 36 % (37-80); Nucleated Red Blood Cell # 0.00 Thou/mm3 (0.00-0.00); Nucleated Red Blood Cell % 0 /100 WBC (0); Platelet Count 209 Thou/mm3 (140-440); RDW Standard Deviation 51.7 fL (36.4-46.3); Red Blood Count 3.68 Miln/mm3 (4.00-5.20); White Blood Count 3.2 Thou/mm3 (3.6-11.0)
[2025-03-20 16:21] LABS: Magnesium 1.7 mg/dL (1.6-2.6)
[2025-03-20 16:26] LABS: Alanine Aminotransferase 16 U/L (10-49); Albumin, Serum 4.1 gm/dL (3.4-4.8); Albumin/Globulin Ratio 1.6 (1.2-2.2); Alkaline Phosphatase 134 U/L (46-116); Anion Gap 10 (7-16); Aspartate Amino Transferase 24 U/L (0-34); BUN/Creatinine Ratio 18 Ratio (12-20); Bilirubin,Total 0.3 mg/dL (0.3-1.2); Blood Urea Nitrogen 16 mg/dL (9-23); Calcium 9.2 mg/dL (8.3-10.6); Calcium (Corrected) 9.2 mg/dL (8.5-10.1); Carbon Dioxide 20.6 mMol/L (20.0-31.0); Chloride 105 mMol/L (98-107); Creatinine (Component) 0.9 mg/dL (0.6-1.3); Free T4 (Free Thyroxine) 1.43 ng/dL (0.89-1.76); Globulin 2.5 gm/dL (2.3-3.5); Glucose 87 mg/dL (74-106); Osmolality,Calculated 272 (275-295); Potassium 4.0 mMol/L (3.4-5.1); Sodium 136 mMol/L (136-145); Thyroid Stimulating Hormone 2.28 uIU/mL (0.55-4.78); Total Protein 6.6 gm/dL (5.7-8.2); eGFR > 60 See Note
== END 2025-03-22 23:59 | disposition home or self-care (01) ==
LOC: SCTC 09:19
PROVIDERS: PCP Family Medicine; Referring Provider Family Medicine; Visit Provider Internal Medicine Hematology & Oncology
DX: Z51.11 Encounter for antineoplastic chemotherapy (principal); C23 Malignant neoplasm of gallbladder; C78.7 Secondary malignant neoplasm of liver and intrahepatic bile duct; Z90.49 Acquired absence of other specified parts of digestive tract; R91.1 Solitary pulmonary nodule
CPT/HCPCS: 36591; 80053; 83735; 84439; 84443; 85025; 96360; 96367; 96368; 96372; 96375; 96413; 96417; 96521; A4216; J1100; J1453; J1642; J1938; J2150; J2405; J3475; J3480; J7040; J7050; J9060; J9173; J9201; Q5101

== ENCOUNTER 2025-04-11 07:16 | Outpatient (RCR) | payer MEDICARE, MEDICAID, SELFPAY ==
--- NOTE | 2025-04-02 01:26 | CTCFLWUP_ITS ---
Patient: KERRY RAMIREZ : 1945 Page 4 of 6 FOLLOW UP NOTE DATE OF SERVICE: 03/27/2025 NAME: KERRY RAMIREZ ACCOUNT: [id number] : 1945 AGE: 80 INTERVAL HISTORY: Visit summary Kerry Ramirez, a female with stage 4 gallbladder adenocarcinoma, presented for chemotherapy discussion. Her history includes T2N1 gallbladder adenocarcinoma diagnosed February 2024 following cholecystectomy, with subsequent PET-CT showing liver and lung lesions. Diagnostic laparoscopy in September 2024 confirmed peritoneal disease. Recent CT showed decreased liver lesion size (1.3 cm) with no new metastases. Treatment plan continue cisplatin, gemcitabine, and durvalumab chemotherapy as patient is tolerating treatment well . Patient had hearing test which showed moderate to hearing loss bilaterally. Patient want to continue her chemotherapy and proceed with cycle 4. subjective Chief Complaint Follow-up for stage 4 gallbladder cancer, on chemotherapy doing well History of Present Illness Kerry Ramirez is a patient with a history of gallbladder adenocarcinoma presenting for follow-up and discussion of chemotherapy treatment. The patient was diagnosed with stage 4 gallbladder cancer in September 2024 following a gallstone and choledocholithiasis surgery performed on February 25, 2024. The pa thology report from the surgery revealed a 1.2 cm T2N1 gallbladder adenocarcinoma with negative margins. Following her initial diagnosis, the patient underwent a PET-CT scan on June 01, 2024, which showed a 3 mm left upper lobe lung nodule and a 15 mm right anterior liver lesion concerning for metastatic disease. She was subsequently referred for surgical evaluation, and on October 09, 2024, underwent a diagnostic laparoscopy. During the procedure, studding along the falciform ligament was found, indicating peritoneal disease. Pathology confirmed malignancy. Ms. Ramirez was then referred for therapeutic discussion, where cisplatin gemcitabine and durvalumab treatment for 6 months, followed by durvalumab maintenance, was recommended based on the TOPAZ-1 trial. A recent CT scan showed a decrease in the size of the liver lesion to 1.3 cm, with no new or enlarging metastases. Patient has started chemotherapy and since then tolerating well. She just completed cycle 1 Medical History - Gallbladder adenocarcinoma, stage 4, diagnosed in September 2024 - Gallstone and choledocholithiasis, diagnosed on February 25, 2024 Surgical History - Diagnostic laparoscopy on 10-09-2024, revealing peritoneal disease - Cholecystectomy on 02-25-2024 for gallstone and choledocholithiasis, without bile spillage Medications and Supplements - Capecitabine - Offered previously but not started. Social History - Living Situation: Patient has a Objective Laboratory, Imaging, and Diagnostic Test Results - PET-CT scan (06/01/2024): - 3 mm left upper lobe lung nodule - 15 mm right anterior liver lesion - Diagnostic laparoscopy (10/09/2024): - Intraoperative findings: Studding along the falciform ligament - Pathology: Consistent with malignancy - CA 19-9: Not measurable - CEA: Normal (specific value not provided) - CT scan (date not specified, after previous scan): - Liver lesion decreased to 1.3 cm - No new or enlarging metastases ONCOLOGY HISTORY:?[facility] Hx? DIAGNOSIS: Stage IV adenocarcinoma of gallbladder Initially stage IIIb(pT2a, PN 1, 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 Ramirez recently had cholecystectomy done 8 [facility]. Surgical pathology specimen showed stage IIIb poorly differentiated adenocarcinoma of the gallbladder. Pathology is documented below. Ms. Ramirez has recovered very well from the surgery. She denies any abdominal pain today. Denies any nausea vomiting, diarrhea or constipation. Ambulating well without any help. Has good appetite and good energy level DATE OF DIAGNOSIS: 02/26/2024 STAGE/TNM: Stage IIIb(pT2a, PN 1, M0) poorly differentiated adenocarcinoma of the gallbladder, s/p cholecystectomy September 2024 confirmed as stage IV TREATMENT HISTORY: Care?Plan Start?Date Cycle Day Intent Durvalumab,?cisplatin?and?gemcitabine?cholangiocarcinoma?regimen?1 01/30/2025 1 21 Palliative HISTORY OF PRESENT ILLNESS: Kerry Ramirez is a 80-year-old SPA speaking Other female with following oncology history. 02/24/2024: Ms. Ramirez was seen here at [facility] emergency room because of right upper quadrant abdominal pain with radiation into right upper chest. 02/24/2024: CT scan of the abdomen and pelvis with IV contrast 02/25/2024: Ms. Ramirez had MRI of the abdomen without contrast as well as MRCP 02/25/2024: Ms. Ramirez is referred to [facility] for ERCP. 02/26/2024: Ms. 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 Tobacco?Use:?Denies ETOH?Use:?Denies Drug?Note:?Denies Social?History?Note:?Lives?with? SHEET METAL WORKER APPRENTICE HISTORY: Menarche?-?Age:?15 Menopause:?Age?54 :?6 Live?Births:?6 Age?1st?:?24 MEDICATIONS: 1. alendronate - 35 mg 1 tab Weekly 2. atorvastatin - 10 mg 1 tab Daily 3. Compazine - 5 mg 5 mg Daily 4. losartan - 100 mg 1 tab Daily 5. multivitamin - 1 Capsule Daily 6. ondansetron - 8 mg 8 mg Daily?Palabra Meds? Medications Last Reconciled by Griselda Martel MD on 03/27/2025 ALLERGIES: No Known Drug Allergies REVIEW OF SYSTEMS: A complete 14-point review of systems was performed and is negative except as noted in interval history. PHYSICAL EXAMINATION:?[facility] PE? VITAL SIGNS: Temperature?97.4, B/P?144/76, Oxygen?Saturation?95% Weight?150?lbs (Change?since?03/26/25:?-0.2?lbs) PAIN: 0 - No pain GENERAL APPEARANCE: Appears well, in no apparent distress, appropriately interactive. HEENT: Normocephalic, no temporal wasting, normal conjunctiva, no scleral icterus, normal hearing, lips without lesions, neck normal range of motion. CARDIOVASCULAR: Not assessed. PULMONARY: Normal respiratory effort, no respiratory distress or use of accessory muscles, speaking in full sentences, no tachypnea. EXTREMITIES: No pedal edema or cyanosis. SKIN: Normal skin appearance. NEUROLOGIC: Alert and oriented x4. PSHYCHIATRIC: Appropriate affect, mood normal, behavior normal, intact thought and speech. LABORATORY DATA: I have personally reviewed and interpreted each of the patient?s relevant lab tests, abnormal findings are below: Date 7/22/25 7/29/25 ??WHITE?BLOOD?COUNT?(Thou/mm3) ? 3.2?L ??RED?BLOOD?COUNT?(Miln/mm3) ? 3.68?L ??HEMOGLOBIN?(gm/dl) ? 10.9?L ??HEMATOCRIT?(%) ? 32.7?L ??PLATELET?COUNT?(Thou/mm3) ? 209 ??NEUTROPHILS?%,?AUTO?(%) ? 36?L ??LYMPH?%,?AUTO?(%) ? 44 ??NEUTROPHILS,?AUTO?(Thou/mm3) ? 1.1?L ??GLUCOSE,RANDOM?(mg/dL) ? 87 ??BLOOD?UREA?NITROGEN?(mg/dL) ? 16 ??CREATININE?(mg/dL) ? 0.90 ??SODIUM?(mmol/L) ? 136 ??POTASSIUM?(mmol/L) ? 4.0 ??CHLORIDE?(mmol/L) ? 105 ??CrCl?(CandG)?(ml/min) ? 45.65 ??AST/SGOT?(Unit/L) ? 24 ??ALT/SGPT?(Unit/L) ? 16 ??ALKALINE?PHOSPHATASE?(Unit/L) ? 134?H ??BILIRUBIN,?TOTAL?(mg/dL) ? 0.3 ??PROTEIN?TOTAL?(gm/dl) ? 6.6 ??ALBUMIN,?SERUM?(gm/dl) ? 4.1 ??GLOBULIN?(gm/dl) ? 2.5 ??ALBUMIN/GLOBULIN?RATIO ? 1.6 ??CALCIUM,?SERUM?(mg/dL) ? 9.2 ??CALCIUM?SERUM?(CORRECTED)?(mg/dL) ? 9.2 ??MAGNESIUM?(mg/dL) 1.5?L 1.7 ASSESSMENT/PLAN:?Hair Gentile Assessment/Plan? Initially presented as stage IIIb(pT2a, 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 Patient was advised to start adjuvant capecitabine but patient never started therapy. Patient waited as family wanted to confirm with [facility] before starting chemotherapy. Patient was seen by Dr. Chan hepatobiliary surgeon for possible debridement of gall bladder bed and liver resection. Patient underwent laparoscopy which confirmed peritoneal lesions as stage IV gallbladder cancer. Stage 4 Gallbladder Adenocarcinoma Assessment: Patient was initially diagnosed with T2N1 gallbladder adenocarcinoma (1.2 cm) in February 2024 following surgery for gallstone and choledocholithiasis. She did not receive adjuvant chemotherapy at that time. A PET-CT scan in May 2024 revealed a 3 mm left upper lobe lung nodule and a 15 mm right anterior liver lesion concerning for metastatic disease. Diagnostic laparoscopy in September 2024 confirmed peritoneal disease. Recent CT scan showed a decrease in the size of the liver lesion to 1.3 cm, with no new or enlarging metastases. The patient has been recommended to start chemotherapy, which should have been initiated earlier based on the September recommendation from [facility]. Plan: Continue chemotherapy with cisplatin, gemcitabine, and durvalumab - - Provide IV hydration during chemotherapy to prevent renal injury - Advise patient to drink 2-3 liters of water daily - Repeat scan after 4 cycles to assess response - Monitor thyroid function with TSH and T4 labs - Schedule follow-up appointment in 4 weeks - Informed consent: Risks of chemotherapy including nausea, vomiting, neuropathy, and hearing loss were discussed. Patient's consented to proceed with chemotherapy. Patient and want to continue treatment RETURN TO CLINIC: I reviewed the diagnosis, prognosis, and recommended treatment/procedure options with the patient (and/or their legal chemical sales representative), including the potential benefits, risks, side effects and alternative therapies. We also discussed the option of no treatment and the possibility of clinical trial participation, if applicable. All questions were addressed, and they demonstrated understanding. They provided informed consent to proceed with the proposed plan of care. BILLING AND COMPLIANCE: I reviewed external records from providers outside my specialty as summarized above. I spent a total of 50 minutes on this patient?s care on the day of their visit excluding time spent related to any billed procedures. This time includes time spent with the patient as well as time spent documenting in the medical record, reviewing patients records and tests, obtaining history, placing orders, communicating with other healthcare professionals, counseling the patient, family or caregiver, and/or care coordination for the diagnoses above. Electronically Signed by: Daniel Gentile MD T: 1:23 AM CC: PCP: Josh Watkins Referring: Josh Watkins This document was completed utilizing speech recognition software. Grammatical errors, random word insertions, pronoun errors, and incomplete sentences are an occasional consequence of this system due to software limitations, ambient noise, and hardware issues. Any formal questions or concerns about the content, text or information contained within the body of this dictation should be directly addressed to the provider for clarification.
[2025-04-03 11:04] LABS: Basophils # (Auto) 0.1 Thou/mm3 (0.0-0.2); Basophils % (Auto) 1 % (0-2.5); Eosinophils # (Auto) 0.1 Thou/mm3 (0.0-0.5); Eosinophils % (Auto) 1 % (0-10); Hematocrit 30.7 % (36.0-46.0); Hemoglobin 10.3 g/dL (12.0-16.0); Immature Granulocytes Auto 0.07 Thou/mm3 (0.00-0.00); Lymphocytes # (Auto) 1.0 Thou/mm3 (1.0-4.8); Lymphocytes % (Auto) 17 % (10-50); Mean Corpuscular HGB Conc 33.6 g/dl (31.0-37.0); Mean Corpuscular Hemoglobin 30.4 pg (25.0-35.0); Mean Corpuscular Volume 91 fL (80-100); Monocytes # (Auto) 0.5 Thou/mm3 (0.0-0.8); Monocytes % (Auto) 9 % (0-12); Neutrophils # (Auto) 4.1 Thou/mm3 (1.8-7.7); Neutrophils % (Auto) 71 % (37-80); Nucleated Red Blood Cell # 0.00 Thou/mm3 (0.00-0.00); Nucleated Red Blood Cell % 0 /100 WBC (0); Platelet Count 132 Thou/mm3 (140-440); RDW Standard Deviation 58.7 fL (36.4-46.3); Red Blood Count 3.39 Miln/mm3 (4.00-5.20); White Blood Count 5.9 Thou/mm3 (3.6-11.0)
[2025-04-03 11:16] LABS: Magnesium 1.4 mg/dL (1.6-2.6)
[2025-04-03 11:20] LABS: Alanine Aminotransferase 10 U/L (10-49); Albumin, Serum 4.1 gm/dL (3.4-4.8); Albumin/Globulin Ratio 2.0 (1.2-2.2); Alkaline Phosphatase 130 U/L (46-116); Anion Gap 10 (7-16); Aspartate Amino Transferase 22 U/L (0-34); BUN/Creatinine Ratio 14 Ratio (12-20); Bilirubin,Total 0.4 mg/dL (0.3-1.2); Blood Urea Nitrogen 14 mg/dL (9-23); Calcium 8.8 mg/dL (8.3-10.6); Calcium (Corrected) 8.8 mg/dL (8.5-10.1); Carbon Dioxide 23.0 mMol/L (20.0-31.0); Chloride 106 mMol/L (98-107); Creatinine (Component) 1.0 mg/dL (0.6-1.3); Free T4 (Free Thyroxine) 1.33 ng/dL (0.89-1.76); Globulin 2.1 gm/dL (2.3-3.5); Glucose 91 mg/dL (74-106); Osmolality,Calculated 278 (275-295); Potassium 3.7 mMol/L (3.4-5.1); Sodium 139 mMol/L (136-145); Thyroid Stimulating Hormone 1.75 uIU/mL (0.55-4.78); Total Protein 6.2 gm/dL (5.7-8.2); eGFR 57 See Note
[2025-04-03 11:21] LABS: Carcinoembryonic Antigen 0.9 ng/mL (0.0-5.0)
[2025-04-10 13:21] LABS: Basophils # (Auto) 0.1 Thou/mm3 (0.0-0.2); Basophils % (Auto) 0 % (0-2.5); Eosinophils # (Auto) 0.1 Thou/mm3 (0.0-0.5); Eosinophils % (Auto) 0 % (0-10); Hematocrit 31.3 % (36.0-46.0); Hemoglobin 10.2 g/dL (12.0-16.0); Immature Granulocytes Auto 2.37 Thou/mm3 (0.00-0.00); Lymphocytes # (Auto) 1.9 Thou/mm3 (1.0-4.8); Lymphocytes % (Auto) 7 % (10-50); Mean Corpuscular HGB Conc 32.6 g/dl (31.0-37.0); Mean Corpuscular Hemoglobin 30.4 pg (25.0-35.0); Mean Corpuscular Volume 93 fL (80-100); Monocytes # (Auto) 1.4 Thou/mm3 (0.0-0.8); Monocytes % (Auto) 5 % (0-12); Neutrophils # (Auto) 20.4 Thou/mm3 (1.8-7.7); Neutrophils % (Auto) 78 % (37-80); Nucleated Red Blood Cell # 0.06 Thou/mm3 (0.00-0.00); Nucleated Red Blood Cell % 0 /100 WBC (0); Platelet Count 247 Thou/mm3 (140-440); RDW Standard Deviation 64.2 fL (36.4-46.3); Red Blood Count 3.35 Miln/mm3 (4.00-5.20); White Blood Count 26.3 Thou/mm3 (3.6-11.0)
[2025-04-10 13:36] LABS: Magnesium 1.3 mg/dL (1.6-2.6)
[2025-04-10 13:42] LABS: Alanine Aminotransferase 15 U/L (10-49); Albumin, Serum 4.1 gm/dL (3.4-4.8); Albumin/Globulin Ratio 2.1 (1.2-2.2); Alkaline Phosphatase 193 U/L (46-116); Anion Gap 11 (7-16); Aspartate Amino Transferase 26 U/L (0-34); BUN/Creatinine Ratio 17 Ratio (12-20); Bilirubin,Total 0.3 mg/dL (0.3-1.2); Blood Urea Nitrogen 15 mg/dL (9-23); Calcium 9.8 mg/dL (8.3-10.6); Calcium (Corrected) 9.8 mg/dL (8.5-10.1); Carbon Dioxide 22.2 mMol/L (20.0-31.0); Chloride 103 mMol/L (98-107); Creatinine (Component) 0.9 mg/dL (0.6-1.3); Free T4 (Free Thyroxine) 1.30 ng/dL (0.89-1.76); Globulin 2.0 gm/dL (2.3-3.5); Glucose 128 mg/dL (74-106); Osmolality,Calculated 274 (275-295); Potassium 3.6 mMol/L (3.4-5.1); Sodium 136 mMol/L (136-145); Thyroid Stimulating Hormone 2.81 uIU/mL (0.55-4.78); Total Protein 6.1 gm/dL (5.7-8.2); eGFR > 60 See Note
== END 2025-04-22 23:59 | disposition home or self-care (01) ==
LOC: SCTC 07:16
PROVIDERS: PCP Family Medicine; Referring Provider Family Medicine; Visit Provider Internal Medicine Hematology & Oncology
DX: Z51.11 Encounter for antineoplastic chemotherapy (principal); C23 Malignant neoplasm of gallbladder; Z90.49 Acquired absence of other specified parts of digestive tract; R91.1 Solitary pulmonary nodule; K76.89 Other specified diseases of liver
CPT/HCPCS: 36591; 80053; 82378; 83735; 84439; 84443; 85025; 96367; 96368; 96372; 96375; 96413; 96417; 99212; A4216; J1100; J1453; J1642; J1938; J2150; J2405; J3475; J3480; J7040; J7050; J9060; J9173; J9201; Q5101; G0463

== ENCOUNTER → 2025-04-13 | Outpatient (CLI) | payer MEDICARE, MEDICAID, SELFPAY ==
--- NOTE | 2025-04-13 08:00 | XR_ITS ---
Examination: Screening digital mammography, bilateral Computer aided detection 3-D breast Tomosynthesis, bilateral Date and time of exam: April 13, 2025 0756 hours Compared to mammograms dating to 05/06/2020 Indication: Screening Technique: Nonmagnified MLO, CC views of the breasts to been obtained, reconstructed from 3-D Tomosynthesis images. R2 computer aided detection program utilized for evaluation of suspicious masses and/or abnormal calcifications. 3-D Tomosynthesis images obtained. Findings: Scattered areas of fibroglandular density Benign calcifications. No suspicious masses Impression: BI-RADS category II: Benign Findings. Recommend 1 year follow-up mammogram.
== END | disposition home or self-care (01) ==
LOC: CDIM 07:43
PROVIDERS: Referring Provider Family Medicine; Visit Provider Family Medicine
DX: Z12.31 Encounter for screening mammogram for malignant neoplasm of breast (principal); R92.323 Mammographic fibroglandular density, bilateral breasts; R92.1 Mammographic calcification found on diagnostic imaging of breast
CPT/HCPCS: 77063; 77067

== ENCOUNTER → 2025-05-08 | Outpatient (CLI) | payer MEDICARE, MEDICAID, SELFPAY ==
--- NOTE | 2025-05-08 12:30 | XR_ITS ---
EXAMINATION: PET/CT FUSION SKULL TO THIGH EXAM DATE AND TIME: May 08, 2025 1348 hours, comparison CT chest abdomen pelvis January 22, 2025, CT abdomen August 07, 2024, CT chest August 07, 2024, PET CT scan June 01, 2024 INDICATIONS: Diagnosis gallbladder cancer, PET CT scan June 01, 2024 3 mm hypermetabolic pulmonary nodule left upper lobe, 15 mm hypermetabolic focus anterior right liver CTDI:vol (mGy) 5.56 DLP: (mGycm) 508.5 PROCEDURE: 15.4 mCi FDG was administered intravenously To allow for distribution and uptake of radiotracer, the patient was allowed to rest quietly in a shielded room. Imaging was performed on an integrated 16-slice PET/CT scanner, with scanning from the skull base to the mid thigh. Serum blood glucose at the time of the injection was measured 114 mg/dL. CT scanning was performed without oral or intravenous contrast material. FINDINGS: Head and Neck: There is no edvin hypermetabolism in the neck. The visualized portions of the brain are normal in appearance on CT. Chest: There is no edvin hypermetabolism in the chest. There are no pulmonary nodules. Abdomen and Pelvis: 7 mm hypermetabolic focus at the anterior margin of the liver which measures smaller compared to 15 mm on the PET CT scan June 01, 2024 No new lesions in the liver Musculoskeletal: Marrow uptake is within normal range. IMPRESSION: Hypermetabolic focus anterior margin of the liver measures 7 mm on the current study compared to 15 mm on the PET CT scan June 01, 2024 Recommend repeat MRI abdomen liver follow-up pre and postcontrast with specific attention to this lesion
== END | disposition home or self-care (01) ==
LOC: CDIM 11:55
PROVIDERS: PCP Family Medicine; Referring Provider Internal Medicine Hematology & Oncology; Visit Provider Internal Medicine Hematology & Oncology
DX: K76.9 Liver disease, unspecified (principal); C23 Malignant neoplasm of gallbladder; C24.9 Malignant neoplasm of biliary tract, unspecified
CPT/HCPCS: 78815; A9552

== ENCOUNTER 2025-05-22 13:42 | Outpatient (RCR) | payer MEDICARE, MEDICAID, SELFPAY ==
[2025-04-24 16:12] LABS: Basophils # (Auto) 0.1 Thou/mm3 (0.0-0.2); Basophils % (Auto) 1 % (0-2.5); Eosinophils # (Auto) 0.1 Thou/mm3 (0.0-0.5); Eosinophils % (Auto) 2 % (0-10); Hematocrit 29.4 % (36.0-46.0); Hemoglobin 9.7 g/dL (12.0-16.0); Immature Granulocytes Auto 0.04 Thou/mm3 (0.00-0.00); Lymphocytes # (Auto) 1.2 Thou/mm3 (1.0-4.8); Lymphocytes % (Auto) 20 % (10-50); Mean Corpuscular HGB Conc 33.0 g/dl (31.0-37.0); Mean Corpuscular Hemoglobin 31.0 pg (25.0-35.0); Mean Corpuscular Volume 94 fL (80-100); Monocytes # (Auto) 0.9 Thou/mm3 (0.0-0.8); Monocytes % (Auto) 15 % (0-12); Neutrophils # (Auto) 3.6 Thou/mm3 (1.8-7.7); Neutrophils % (Auto) 61 % (37-80); Nucleated Red Blood Cell # 0.00 Thou/mm3 (0.00-0.00); Nucleated Red Blood Cell % 0 /100 WBC (0); Platelet Count 118 Thou/mm3 (140-440); RDW Standard Deviation 62.8 fL (36.4-46.3); Red Blood Count 3.13 Miln/mm3 (4.00-5.20); White Blood Count 5.9 Thou/mm3 (3.6-11.0)
[2025-04-24 16:42] LABS: Magnesium 1.6 mg/dL (1.6-2.6)
[2025-04-24 16:45] LABS: Alanine Aminotransferase 16 U/L (10-49); Albumin, Serum 4.1 gm/dL (3.4-4.8); Albumin/Globulin Ratio 2.1 (1.2-2.2); Alkaline Phosphatase 137 U/L (46-116); Anion Gap 10 (7-16); Aspartate Amino Transferase 34 U/L (0-34); BUN/Creatinine Ratio 18 Ratio (12-20); Bilirubin,Total 0.4 mg/dL (0.3-1.2); Blood Urea Nitrogen 16 mg/dL (9-23); Calcium 8.9 mg/dL (8.3-10.6); Calcium (Corrected) 8.9 mg/dL (8.5-10.1); Carbon Dioxide 21.0 mMol/L (20.0-31.0); Chloride 103 mMol/L (98-107); Creatinine (Component) 0.9 mg/dL (0.6-1.3); Free T4 (Free Thyroxine) 1.32 ng/dL (0.89-1.76); Globulin 2.0 gm/dL (2.3-3.5); Glucose 83 mg/dL (74-106); Osmolality,Calculated 268 (275-295); Potassium 3.7 mMol/L (3.4-5.1); Sodium 134 mMol/L (136-145); Thyroid Stimulating Hormone 1.72 uIU/mL (0.55-4.78); Total Protein 6.1 gm/dL (5.7-8.2); eGFR > 60 See Note
[2025-05-01 16:01] LABS: Basophils # (Auto) 0.1 Thou/mm3 (0.0-0.2); Basophils % (Auto) 2 % (0-2.5); Eosinophils # (Auto) 0.1 Thou/mm3 (0.0-0.5); Eosinophils % (Auto) 2 % (0-10); Hematocrit 26.4 % (36.0-46.0); Hemoglobin 8.9 g/dL (12.0-16.0); Immature Granulocytes Auto 0.13 Thou/mm3 (0.00-0.00); Lymphocytes # (Auto) 1.1 Thou/mm3 (1.0-4.8); Lymphocytes % (Auto) 35 % (10-50); Mean Corpuscular HGB Conc 33.7 g/dl (31.0-37.0); Mean Corpuscular Hemoglobin 31.0 pg (25.0-35.0); Mean Corpuscular Volume 92 fL (80-100); Monocytes # (Auto) 0.4 Thou/mm3 (0.0-0.8); Monocytes % (Auto) 12 % (0-12); Neutrophils # (Auto) 1.4 Thou/mm3 (1.8-7.7); Neutrophils % (Auto) 45 % (37-80); Nucleated Red Blood Cell # 0.00 Thou/mm3 (0.00-0.00); Nucleated Red Blood Cell % 0 /100 WBC (0); Platelet Count 191 Thou/mm3 (140-440); RDW Standard Deviation 58.3 fL (36.4-46.3); Red Blood Count 2.87 Miln/mm3 (4.00-5.20); White Blood Count 3.1 Thou/mm3 (3.6-11.0)
[2025-05-01 16:18] LABS: Magnesium 1.5 mg/dL (1.6-2.6)
[2025-05-01 16:25] LABS: Alanine Aminotransferase 17 U/L (10-49); Albumin, Serum 3.7 gm/dL (3.4-4.8); Albumin/Globulin Ratio 1.9 (1.2-2.2); Alkaline Phosphatase 164 U/L (46-116); Anion Gap 12 (7-16); Aspartate Amino Transferase 26 U/L (0-34); BUN/Creatinine Ratio 21 Ratio (12-20); Bilirubin,Total 0.3 mg/dL (0.3-1.2); Blood Urea Nitrogen 19 mg/dL (9-23); Calcium 8.8 mg/dL (8.3-10.6); Calcium (Corrected) 9.0 mg/dL (8.5-10.1); Carbon Dioxide 22.1 mMol/L (20.0-31.0); Chloride 100 mMol/L (98-107); Creatinine (Component) 0.9 mg/dL (0.6-1.3); Free T4 (Free Thyroxine) 1.19 ng/dL (0.89-1.76); Globulin 2.0 gm/dL (2.3-3.5); Glucose 113 mg/dL (74-106); Osmolality,Calculated 271 (275-295); Potassium 3.7 mMol/L (3.4-5.1); Sodium 134 mMol/L (136-145); Thyroid Stimulating Hormone 2.67 uIU/mL (0.55-4.78); Total Protein 5.7 gm/dL (5.7-8.2); eGFR > 60 See Note
[2025-05-15 12:39] LABS: Basophils # (Auto) 0.1 Thou/mm3 (0.0-0.2); Basophils % (Auto) 1 % (0-2.5); Eosinophils # (Auto) 0.1 Thou/mm3 (0.0-0.5); Eosinophils % (Auto) 1 % (0-10); Hematocrit 29.4 % (36.0-46.0); Hemoglobin 9.8 g/dL (12.0-16.0); Immature Granulocytes Auto 0.08 Thou/mm3 (0.00-0.00); Lymphocytes # (Auto) 1.1 Thou/mm3 (1.0-4.8); Lymphocytes % (Auto) 16 % (10-50); Mean Corpuscular HGB Conc 33.3 g/dl (31.0-37.0); Mean Corpuscular Hemoglobin 31.7 pg (25.0-35.0); Mean Corpuscular Volume 95 fL (80-100); Monocytes # (Auto) 0.6 Thou/mm3 (0.0-0.8); Monocytes % (Auto) 9 % (0-12); Neutrophils # (Auto) 4.9 Thou/mm3 (1.8-7.7); Neutrophils % (Auto) 72 % (37-80); Nucleated Red Blood Cell # 0.00 Thou/mm3 (0.00-0.00); Nucleated Red Blood Cell % 0 /100 WBC (0); Platelet Count 112 Thou/mm3 (140-440); RDW Standard Deviation 60.4 fL (36.4-46.3); Red Blood Count 3.09 Miln/mm3 (4.00-5.20); White Blood Count 6.8 Thou/mm3 (3.6-11.0)
[2025-05-15 13:03] LABS: Magnesium 1.7 mg/dL (1.6-2.6)
[2025-05-15 13:05] LABS: Alanine Aminotransferase 13 U/L (10-49); Albumin, Serum 4.4 gm/dL (3.4-4.8); Albumin/Globulin Ratio 2.0 (1.2-2.2); Alkaline Phosphatase 129 U/L (46-116); Anion Gap 8 (7-16); Aspartate Amino Transferase 28 U/L (0-34); BUN/Creatinine Ratio 16 Ratio (12-20); Bilirubin,Total 0.7 mg/dL (0.3-1.2); Blood Urea Nitrogen 16 mg/dL (9-23); Calcium 9.0 mg/dL (8.3-10.6); Calcium (Corrected) 9.0 mg/dL (8.5-10.1); Carbon Dioxide 21.6 mMol/L (20.0-31.0); Chloride 102 mMol/L (98-107); Creatinine (Component) 1.0 mg/dL (0.6-1.3); Free T4 (Free Thyroxine) 1.24 ng/dL (0.89-1.76); Globulin 2.2 gm/dL (2.3-3.5); Glucose 103 mg/dL (74-106); Osmolality,Calculated 265 (275-295); Potassium 3.7 mMol/L (3.4-5.1); Sodium 132 mMol/L (136-145); Thyroid Stimulating Hormone 1.30 uIU/mL (0.55-4.78); Total Protein 6.6 gm/dL (5.7-8.2); eGFR 57 See Note
[2025-05-22 14:23] LABS: Basophils # (Auto) 0.1 Thou/mm3 (0.0-0.2); Basophils % (Auto) 2 % (0-2.5); Eosinophils # (Auto) 0.1 Thou/mm3 (0.0-0.5); Eosinophils % (Auto) 2 % (0-10); Hematocrit 27.6 % (36.0-46.0); Hemoglobin 9.3 g/dL (12.0-16.0); Immature Granulocytes Auto 0.02 Thou/mm3 (0.00-0.00); Lymphocytes # (Auto) 0.9 Thou/mm3 (1.0-4.8); Lymphocytes % (Auto) 31 % (10-50); Mean Corpuscular HGB Conc 33.7 g/dl (31.0-37.0); Mean Corpuscular Hemoglobin 32.2 pg (25.0-35.0); Mean Corpuscular Volume 96 fL (80-100); Monocytes # (Auto) 0.2 Thou/mm3 (0.0-0.8); Monocytes % (Auto) 8 % (0-12); Neutrophils # (Auto) 1.7 Thou/mm3 (1.8-7.7); Neutrophils % (Auto) 57 % (37-80); Nucleated Red Blood Cell # 0.00 Thou/mm3 (0.00-0.00); Nucleated Red Blood Cell % 0 /100 WBC (0); Platelet Count 220 Thou/mm3 (140-440); RDW Standard Deviation 55.6 fL (36.4-46.3); Red Blood Count 2.89 Miln/mm3 (4.00-5.20); White Blood Count 3.0 Thou/mm3 (3.6-11.0)
[2025-05-22 14:47] LABS: Alanine Aminotransferase 14 U/L (10-49); Albumin, Serum 3.9 gm/dL (3.4-4.8); Albumin/Globulin Ratio 2.1 (1.2-2.2); Alkaline Phosphatase 124 U/L (46-116); Anion Gap 8 (7-16); Aspartate Amino Transferase 24 U/L (0-34); BUN/Creatinine Ratio 13 Ratio (12-20); Bilirubin,Total 0.4 mg/dL (0.3-1.2); Blood Urea Nitrogen 13 mg/dL (9-23); Calcium 8.9 mg/dL (8.3-10.6); Calcium (Corrected) 9.0 mg/dL (8.5-10.1); Carbon Dioxide 21.8 mMol/L (20.0-31.0); Chloride 102 mMol/L (98-107); Creatinine (Component) 1.0 mg/dL (0.6-1.3); Free T4 (Free Thyroxine) 1.30 ng/dL (0.89-1.76); Globulin 1.9 gm/dL (2.3-3.5); Glucose 118 mg/dL (74-106); Osmolality,Calculated 265 (275-295); Potassium 3.6 mMol/L (3.4-5.1); Sodium 132 mMol/L (136-145); Thyroid Stimulating Hormone 1.78 uIU/mL (0.55-4.78); Total Protein 5.8 gm/dL (5.7-8.2); eGFR 57 See Note
[2025-05-22 14:50] LABS: Magnesium 1.7 mg/dL (1.6-2.6)
== END 2025-05-22 23:59 | disposition home or self-care (01) ==
LOC: SCTC 13:42
PROVIDERS: PCP Family Medicine; Referring Provider Family Medicine; Visit Provider Internal Medicine Hematology & Oncology
DX: Z51.11 Encounter for antineoplastic chemotherapy (principal); C23 Malignant neoplasm of gallbladder; R91.1 Solitary pulmonary nodule; K76.89 Other specified diseases of liver; Z90.49 Acquired absence of other specified parts of digestive tract
CPT/HCPCS: 36591; 80053; 83735; 84439; 84443; 85025; 96367; 96368; 96372; 96375; 96413; 96417; A4216; J1100; J1453; J1642; J1938; J2150; J2405; J3475; J3480; J3490; J7040; J7050; J9060; J9173; J9201; Q5101

== ENCOUNTER 2025-06-13 09:03 | Emergency (ER) | payer MEDICARE, MEDICAID, SELFPAY ==
[2025-06-13 09:40] VITALS: BP 177/90; PULSE 92; RESP 18; TEMP 36.6; O2SAT 96; BMI 28.5
--- NOTE | 2025-06-13 09:42 | EDNOTE_ITS ---
<Statement entered by Yara Man MD - 06/13/25 14:05> As co-signing physician, I was present and available for consult prn. I concur with the plan and care as documented by the midlevel provider. ED General RME/HPI General Chief complaint: General Adult/Misc Complain Stated complaint: sent by CTC for HTN 218/113 Time Seen by Provider: 06/13/25 09:42 Arrival date/time: 06/13/25 09:03 80-year-old female presents to the emergency department today with per patient her blood pressure was elevated when she had her lab drawn today and therefore she was referred to the ER patient reports no symptoms reports no headache no dizziness no chest pain or shortness of breath Limitations: no limitations Related Data Home Medications ?Medication ?Instructions ?Recorded ?Confirmed atorvastatin 10 mg tablet (Lipitor) 10 mg PO HS #0 tab s 05/24/14 01/03/25 losartan 100 mg tablet 100 mg PO QDAY #0 tabs 05/2401/03/25 alendronate 35 mg tablet 35 mg PO QWEEK 12/19/2012/21 ergocalciferol (vitamin D2) 1,250 50,000 unit PO QWEEK 01/03/25 01/03/25 mcg (50,000 unit) capsule (Vitamin D2) Allergies Allergy/AdvReac Type Severity Reaction Status Date / Time No Known Allergies Allergy Verified 06/13/25 09:06 Review of Systems Review of Systems Systems Reviewed: All systems reviewed, normal except as documented Constitutional Constitutional: Reports system reviewed and no additional complaints, except as documented, Denies fever(s) and Denies headache(s) Eyes Eyes: Reports system reviewed and no additional complaints, except as documented and Denies blurry vision ENT Ears, Nose, Mouth, and Throat: Reports system reviewed and no additional complaints, except as documented, Denies headache(s), Denies nasal congestion and Denies nasal discharge Cardiovascular Cardiovascular: Reports system reviewed and no additional complaints, except as documented, Denies chest pain and Denies dyspnea Respiratory Respiratory: Reports system reviewed and no additional complaints, except as documented, Denies chest congestion, Denies cough and Denies dyspnea Gastrointestinal Gastrointestinal: Reports system reviewed and no additional complaints, except as documented and Denies abdominal pain Integumentary/Breasts Skin/Breast: Reports system reviewed and no additional complaints, except as documented and Denies rash Neurologic Neurologic: Reports system reviewed and no additional complaints, except as documented, Reports as per HPI and Denies headache(s) Past Medical History Past Medical History NEUROLOGIC: Negative Neurological Disorders, Cerebrovascular Accident, Transient Ischemic Attacks (TIA), Parkinson's Disease, Meningitis, Seizures, Epilepsy, Peripheral Neuropathy, Cormier's Palsy, Migraine, Head Trauma, Spinal Cord Injury or Traumatic Brain Injury CARDIAC: Positive Cardiac Disorders, Hypercholesterolemia and Hypertension; Negative Myocardial Infarction, Cardiac Arrhythmia, Angina, Heart Murmur, Coronary Artery Disease, Peripheral Vascular Disease, Congestive Heart Failure, Congenital Heart Disease, Valvular Heart Disease, Edema, Cellulitis, Deep Vein Thrombosis, Hypotension or Varicose Veins RESPIRATORY: Negative Chronic Obstructive Pulmonary Disease (COPD), Asthma, Emphysema, Pneumonia, Tuberculosis, Pulmonary Embolism or Sleep Apnea GASTROINTESTINAL: Positive Gastrointestinal Disorders (hernia); Negative Hepatitis, Cirrhosis, Pancreatitis, Gastrointestinal Bleed, Colitis, Ulcerative Colitis, Ulcer, Colorectal Cancer, Hiatal Hernia, Hemorrhoids, Gastroesophageal Reflux Disease or Obesity GENITOURINARY: Positive Genitourinary Disorders (MILD URINARY INCONTINENCE. WEARS DIAPER) and Inguinal Hernia; Negative Renal Disease, Kidney Stones, Polycystic Kidney Disease, Neurogenic Bladder or Dialysis REPRODUCTIVE: Positive Previous Pregnancies (6 LIVE BIRTHS); Negative Breast Cancer, Endometriosis, Pelvic Inflammatory Disease or Uterine Prolapse MUSCULOSKELETAL: Positive Arthritis and Osteoporosis (TAKES MEDICATION); Negative Musculoskeletal Disorders, Marfan's Syndrome, Bone Cancer, Rheumatoid Arthritis, Degenerative Disk Disease, Gout, Scoliosis, Carpal Tunnel Syndrome, Degenerative Joint Disease (BOTH KNEES), Osteomyelitis or Poliovirus ENT: Negative Cataracts, Glaucoma, Blind, Retinal Detachment, Macular Degeneration, Ear Infection, Deafness, Head Trauma or Eye Prosthesis ENDOCRINE: Negative Diabetes Mellitus Type 1, Diabetes Mellitus Type 2, Hyperthyroidism, Hypothyroidism, Systemic Lupus Erythematosus or Graves' Disease HEMATOLOGIC: Negative Blood Disorders, Anemia, Leukemia, Hemophilia, Sickle Cell Disease or Clotting Problems PSYCHO/SOCIAL: Negative Depression or Post Traumatic Stress Disorder OTHER HISTORY: Positive Blood Transfusions and Measles; Negative Hospitalization, Autoimmune Disease, Down Syndrome, Developmental Delay, Shingles, Falls, Blood Transfusion Reaction, Anesthesia Reactions, Chemotherapy, Radiation Therapy, MRSA, Cancer, Breast Cancer, Cervical Cancer, Colorectal Cancer, Lung Cancer or Ovarian Cancer Family History FAMILY HISTORY: Positive Family Cardiac Disorders and Family Surgery; Negative Family Psychiatric Problems, Family Respiratory Disorders, Family Gastrointestinal Problems, Family Cancer or Family Anesthesia Reaction Surgical History SURGICAL: Positive Joint Replacement and Tubal Ligation; Negative Cardiac Surgery, Open Heart Surgery, Valve Replacement, Pacemaker, Endocrine Surgery, Thyroidectomy, Ear Surgery, Tympanostomy Tube, Eye Surgery, Nose Surgery, Oral Surgery, Tonsillectomy, Adenoidectomy, Throat Surgery, Abdominal Surgery, Amputation, Open Reduction Internal Fixation, Arthroscopy, Neurologic Surgery, Brain Shunt, Mastectomy, Lumpectomy, Hysterectomy or Section Social History SMOKING STATUS: Never smoker SUBSTANCE USE: does not use ED Exam General Limitations: Present no limitations General appearance: Present alert and in no apparent distress Head Head exam: Present atraumatic Eye Eye exam: Present normal appearance, PERRL and EOMI ENT ENT exam: Present normal exam, normal oropharynx and mucous membranes moist Neck Neck exam: Present normal inspection, full ROM and trachea midline Chest Chest inspection: Present normal inspection and symmetric chest wall rise Respiratory Respiratory exam: Present normal lung sounds bilaterally Cardiovascular Cardiovascular exam: Present regular rate, normal rhythm and normal heart sounds Abdominal Exam Abdominal exam: Present soft and normal bowel sounds Extremities Exam Extremities exam: Present normal inspection and full ROM Back Exam Back exam: Present normal inspection and full ROM Neurological Exam Neurological exam: Present alert, oriented X3 and CN II-XII intact Psychiatric Psychiatric exam: Present normal affect and normal mood Skin Skin exam: Present warm, dry, intact and normal color Course Quality Measures none Vital Signs Vital signs: Vital Signs Temperature 97.9 F 06/13/25 09:40 Pulse Rate 92 06/13/25 09:40 Respiratory Rate 18 06/13/25 09:40 Blood Pressure 177/90 H 06/13/25 09:40 Pulse Oximetry (%) 96 06/13/25 09:40 Oxygen Delivery Method Room Air 06/13/25 09:40 O2 saturation 96% on room air WNL Discharge Plan Plan Patient Disposition: HOME (Self Care) Discharge Disposition comment: Stable Prescriptions/Referrals Prescriptions/Med Rec: No Action atorvastatin [Lipitor] 10 MG tablet 10 mg PO HS Qty: 0 losartan 100 mg Tablet 100 mg PO QDAY Qty: 0 alendronate 35 mg Tablet 35 mg PO QWEEK ergocalciferol (vitamin D2) [Vitamin D2] 1,250 mcg (50,000 unit) capsule 50,000 unit PO QWEEK Problem List Clinical Impression: Asymptomatic hypertension Patient/Caregiver Discharge Instructions Education Materials: Blood Pressure Check Steps Additional Instructions: Please follow up with your primary care doctor in the next 24-48hrs for any worsening symptoms return here immediately Print Language: Romanian Stand Alone Forms: Sarah Wellington Info., Patient Portal Info Letter PA/INDUSTRIAL ENGINEERING MANAGER Supervising Physician PA/YOEL Supervising Physician: Dr. Man MDM Narrative MDM hospital course (for use when minimal MDM required): 80-year-old female presents to the emergency department today with per patient her blood pressure was elevated when she had her lab drawn today and therefore she was referred to the ER patient reports no symptoms reports no headache no dizziness no chest pain or shortness of breath On exam patient well-appearing patient does not appear look toxic patient states she would like to go home At this time blood pressure 177/90 patient does have history of hypertension Patient instructed to take her blood pressure medication at home For any emergent concerns patient is instructed return for reevaluation Clinical Information Provided by: patient Medical Records reviewed [facility] Meds/Rx considered, not ordered None Labs/Rad/Tests considered, not ordered None Chronic Illness/Social Conditions which may negatively complicate care or outcome(s)-explain: None or not ap plicable EKG EKG not done Labs Labs: none Imaging Imaging interpretation: none Medication Administration(s) none Diagnosis Differential Diagnosis ED Complaint MDM: Asymptomatic hypertension, hypertension
== END 2025-06-13 10:00 | disposition home or self-care (01) ==
LOC: SERX 09:49
PROVIDERS: Emergency Provider Nurse Practitioner Primary Care; PCP Family Medicine
DX: I10 Essential (primary) hypertension (principal)
CPT/HCPCS: 99281

== ENCOUNTER 2025-06-19 10:16 | Outpatient (RCR) | payer MEDICARE, MEDICAID, SELFPAY ==
[2025-06-05 13:41] LABS: Basophils # (Auto) 0.1 Thou/mm3 (0.0-0.2); Basophils % (Auto) 1 % (0-2.5); Eosinophils # (Auto) 0.1 Thou/mm3 (0.0-0.5); Eosinophils % (Auto) 2 % (0-10); Hematocrit 29.5 % (36.0-46.0); Hemoglobin 10.0 g/dL (12.0-16.0); Immature Granulocytes Auto 0.05 Thou/mm3 (0.00-0.00); Lymphocytes # (Auto) 1.2 Thou/mm3 (1.0-4.8); Lymphocytes % (Auto) 18 % (10-50); Mean Corpuscular HGB Conc 33.9 g/dl (31.0-37.0); Mean Corpuscular Hemoglobin 32.7 pg (25.0-35.0); Mean Corpuscular Volume 96 fL (80-100); Monocytes # (Auto) 0.7 Thou/mm3 (0.0-0.8); Monocytes % (Auto) 11 % (0-12); Neutrophils # (Auto) 4.3 Thou/mm3 (1.8-7.7); Neutrophils % (Auto) 67 % (37-80); Nucleated Red Blood Cell # 0.00 Thou/mm3 (0.00-0.00); Nucleated Red Blood Cell % 0 /100 WBC (0); Platelet Count 113 Thou/mm3 (140-440); RDW Standard Deviation 57.5 fL (36.4-46.3); Red Blood Count 3.06 Miln/mm3 (4.00-5.20); White Blood Count 6.4 Thou/mm3 (3.6-11.0)
[2025-06-05 14:07] LABS: Magnesium 1.7 mg/dL (1.6-2.6)
[2025-06-05 14:11] LABS: Alanine Aminotransferase 16 U/L (10-49); Albumin, Serum 4.2 gm/dL (3.4-4.8); Albumin/Globulin Ratio 2.1 (1.2-2.2); Alkaline Phosphatase 154 U/L (46-116); Anion Gap 10 (7-16); Aspartate Amino Transferase 29 U/L (0-34); BUN/Creatinine Ratio 19 Ratio (12-20); Bilirubin,Total 0.3 mg/dL (0.3-1.2); Blood Urea Nitrogen 19 mg/dL (9-23); Calcium 8.9 mg/dL (8.3-10.6); Calcium (Corrected) 8.9 mg/dL (8.5-10.1); Carbon Dioxide 23.2 mMol/L (20.0-31.0); Chloride 102 mMol/L (98-107); Creatinine (Component) 1.0 mg/dL (0.6-1.3); Free T4 (Free Thyroxine) 1.26 ng/dL (0.89-1.76); Globulin 2.0 gm/dL (2.3-3.5); Glucose 108 mg/dL (74-106); Osmolality,Calculated 273 (275-295); Potassium 3.9 mMol/L (3.4-5.1); Sodium 135 mMol/L (136-145); Thyroid Stimulating Hormone 2.28 uIU/mL (0.55-4.78); Total Protein 6.2 gm/dL (5.7-8.2); eGFR 57 See Note
[2025-06-13 08:56] LABS: Basophils # (Auto) 0.1 Thou/mm3 (0.0-0.2); Basophils % (Auto) 2 % (0-2.5); Eosinophils # (Auto) 0.1 Thou/mm3 (0.0-0.5); Eosinophils % (Auto) 2 % (0-10); Hematocrit 30.2 % (36.0-46.0); Hemoglobin 10.2 g/dL (12.0-16.0); Immature Granulocytes Auto 0.05 Thou/mm3 (0.00-0.00); Lymphocytes # (Auto) 1.0 Thou/mm3 (1.0-4.8); Lymphocytes % (Auto) 35 % (10-50); Mean Corpuscular HGB Conc 33.8 g/dl (31.0-37.0); Mean Corpuscular Hemoglobin 32.7 pg (25.0-35.0); Mean Corpuscular Volume 97 fL (80-100); Monocytes # (Auto) 0.3 Thou/mm3 (0.0-0.8); Monocytes % (Auto) 12 % (0-12); Neutrophils # (Auto) 1.4 Thou/mm3 (1.8-7.7); Neutrophils % (Auto) 47 % (37-80); Nucleated Red Blood Cell # 0.00 Thou/mm3 (0.00-0.00); Nucleated Red Blood Cell % 0 /100 WBC (0); Platelet Count 184 Thou/mm3 (140-440); RDW Standard Deviation 54.3 fL (36.4-46.3); Red Blood Count 3.12 Miln/mm3 (4.00-5.20); White Blood Count 3.0 Thou/mm3 (3.6-11.0)
[2025-06-13 09:14] LABS: Magnesium 1.7 mg/dL (1.6-2.6)
[2025-06-13 09:19] LABS: Alanine Aminotransferase 18 U/L (10-49); Albumin, Serum 4.5 gm/dL (3.4-4.8); Albumin/Globulin Ratio 2.4 (1.2-2.2); Alkaline Phosphatase 145 U/L (46-116); Anion Gap 10 (7-16); Aspartate Amino Transferase 32 U/L (0-34); BUN/Creatinine Ratio 17 Ratio (12-20); Bilirubin,Total 0.4 mg/dL (0.3-1.2); Blood Urea Nitrogen 17 mg/dL (9-23); Calcium 9.0 mg/dL (8.3-10.6); Calcium (Corrected) 9.0 mg/dL (8.5-10.1); Carbon Dioxide 25.2 mMol/L (20.0-31.0); Chloride 98 mMol/L (98-107); Creatinine (Component) 1.0 mg/dL (0.6-1.3); Free T4 (Free Thyroxine) 1.44 ng/dL (0.89-1.76); Globulin 1.9 gm/dL (2.3-3.5); Glucose 103 mg/dL (74-106); Osmolality,Calculated 267 (275-295); Potassium 3.8 mMol/L (3.4-5.1); Sodium 133 mMol/L (136-145); Thyroid Stimulating Hormone 3.57 uIU/mL (0.55-4.78); Total Protein 6.4 gm/dL (5.7-8.2); eGFR 57 See Note
== END 2025-06-22 23:59 | disposition home or self-care (01) ==
LOC: SCTC 10:16
PROVIDERS: PCP Family Medicine; Referring Provider Family Medicine; Visit Provider Internal Medicine Hematology & Oncology
DX: Z51.11 Encounter for antineoplastic chemotherapy (principal); C23 Malignant neoplasm of gallbladder; C78.7 Secondary malignant neoplasm of liver and intrahepatic bile duct; Z90.49 Acquired absence of other specified parts of digestive tract; R91.1 Solitary pulmonary nodule
CPT/HCPCS: 36430; 36591; 80053; 83735; 84439; 84443; 85025; 96367; 96368; 96372; 96375; 96413; 96417; 99212; A4216; J1100; J1434; J1642; J1938; J2150; J2405; J3475; J3480; J3490; J7040; J7050; J9060; J9173; J9201; Q5101; G0463

== ENCOUNTER 2025-06-28 08:51 | Inpatient (IN) | payer MEDICARE, MEDICAID, SELFPAY ==
[2025-06-28] VITALS (10 sets, daily range): BP systolic 97–149; BP diastolic 59–90; PULSE 68–93; RESP 16–99; TEMP 36.3–37.1; O2SAT 95–98; BMI 28.5; BMI 27.8
--- NOTE | 2025-06-28 09:33 | XR_ITS ---
CLINICAL INDICATION: cp Study date and time: 06/28/2025, 10:27 a.m. TECHNIQUE: XR chest 1V COMPARISON: Chest radiograph 02/24/2024 FINDINGS: The cardiac silhouette is within normal is of size limits for portable technique. No evidence for congestive heart failure. Redemonstration of atherosclerosis and unfolding of the descending thoracic aorta. More pronounced elevation of the right hemidiaphragm compared to prior radiograph with underlying subsegmental atelectasis again noted. Very mild left basilar subsegmental atelectasis appears to be present. No segmental or lobar consolidation. No mass detected. No pleural effusion or pneumothorax. No acute osseous abnormality detected. Redemonstration of mild thoracic levoscoliosis. IMPRESSION: More pronounced elevation of the right hemidiaphragm with bibasilar subsegmental atelectases noted. No pneumonic airspace consolidation, sizable pleural effusion or evidence of congestive heart failure. - This report was generated utilizing speech recognition software. -
[2025-06-28 10:19] LABS: Collection Type, Urine Clean Catch
[2025-06-28 10:30] LABS: Lactate (Lactic Acid) 1.0 mMol/L (0.4-2.0)
[2025-06-28 10:31] LABS: Basophils # (Auto) 0.1 Thou/mm3 (0.0-0.2); Basophils % (Auto) 1 % (0-2.5); Eosinophils # (Auto) 0.1 Thou/mm3 (0.0-0.5); Eosinophils % (Auto) 0 % (0-10); Hematocrit 29.6 % (36.0-46.0); Hemoglobin 10.1 g/dL (12.0-16.0); Immature Granulocytes Auto 0.15 Thou/mm3 (0.00-0.00); Lymphocytes # (Auto) 0.9 Thou/mm3 (1.0-4.8); Lymphocytes % (Auto) 4 % (10-50); Mean Corpuscular HGB Conc 34.1 g/dl (31.0-37.0); Mean Corpuscular Hemoglobin 32.5 pg (25.0-35.0); Mean Corpuscular Volume 95 fL (80-100); Monocytes # (Auto) 0.9 Thou/mm3 (0.0-0.8); Monocytes % (Auto) 5 % (0-12); Neutrophils # (Auto) 18.2 Thou/mm3 (1.8-7.7); Neutrophils % (Auto) 90 % (37-80); Nucleated Red Blood Cell # 0.00 Thou/mm3 (0.00-0.00); Nucleated Red Blood Cell % 0 /100 WBC (0); Platelet Count 173 Thou/mm3 (140-440); RDW Standard Deviation 54.0 fL (36.4-46.3); Red Blood Count 3.11 Miln/mm3 (4.00-5.20); White Blood Count 20.3 Thou/mm3 (3.6-11.0)
[2025-06-28 10:32] LABS: Bacteria,Urine Rare; Bilirubin,Urine Negative (Negative); Blood,Urine Negative (Negative); Clarity,Urine Clear (Clear/Hazy); Color,Urine Colorless (Lt Yel-Yel); Culture Indicated,Urine Not Indicated; Glucose, Urine Negative (Negative); Ketones,Urine Negative (Negative); Leukocyte Esterase,Urine Positive (Negative); Nitrite,Urine Negative (Negative); PH,Urine 6.0 (5.0-7.0); Protein,Urine Negative (Neg - Trace); RBC,Urine 3 /hpf (0-3); Specific Gravity,Urine 1.005 (1.001-1.035); Squamous Epithelial Cell,Urine 1 /hpf (0-5); Urobilinogen,Urine Negative mg/dL (0.0-1.0); WBC,Urine 5 /hpf (0-5)
[2025-06-28 10:49] LABS: INR 1.1 (0.9-1.3); Prothrombin Time 11.3 Seconds (9.0-12.2)
[2025-06-28] MEDS: PIPER/TAZO 3.375 GM PREMIX 3.375 GM/50 ML BAG IV ×3 (11:10→22:00)
[2025-06-28] MEDS: ONDANSETRON INJ 2 MG/ML INJ 2 ML 4 MG IVP (11:12)
--- NOTE | 2025-06-28 11:13 | PC.NURSE ---
IV MEDS ORDERED, DELAYED GIVING DUE TO PT IN THE LOBBY
[2025-06-28 11:17] LABS: Alanine Aminotransferase 23 U/L (10-49); Albumin, Serum 4.3 gm/dL (3.4-4.8); Albumin/Globulin Ratio 2.4 (1.2-2.2); Alkaline Phosphatase 155 U/L (46-116); Anion Gap 10 (7-16); Aspartate Amino Transferase 42 U/L (0-34); BUN/Creatinine Ratio 16 Ratio (12-20); Bilirubin,Total 0.6 mg/dL (0.3-1.2); Blood Urea Nitrogen 22 mg/dL (9-23); Calcium 9.1 mg/dL (8.3-10.6); Calcium (Corrected) 9.1 mg/dL (8.5-10.1); Carbon Dioxide 21.7 mMol/L (20.0-31.0); Chloride 98 mMol/L (98-107); Creatinine (Component) 1.4 mg/dL (0.6-1.3); Estimated Creatinine Clearance 28.4 mL/min (>60); Globulin 1.8 gm/dL (2.3-3.5); Glucose 116 mg/dL (74-106); Osmolality,Calculated 265 (275-295); Potassium 4.2 mMol/L (3.4-5.1); Procalcitonin 12.58 ng/ml (0.0-0.49); Sodium 130 mMol/L (136-145); Total Protein 6.1 gm/dL (5.7-8.2); eGFR 38 See Note
[2025-06-28 11:23] LABS: Troponin I 0.057 ng/mL (0.0-0.045)
[2025-06-28] MEDS: ACETAMINOPHEN IVPB 1,000 MG/100 ML VIAL 250 MG IV (11:43)
--- NOTE | 2025-06-28 11:46 | PD.EDRECHK ---
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 Patient reports she had her usual appointment with [facility] today and while in office had labs and blood pressure taken. State in office diastolic pressure was low and WBC in the 30s. Patient states she had chills and nausea though no fevers. No other associated symptoms reported. Related Data Home Medications ?Medication ?Instructions ?Recorded ?Confirmed atorvastatin 10 mg tablet (Lipitor) 10 mg PO HS #0 tabs 05/24/14 06/28/25 losartan 100 mg tablet 100 mg PO QDAY #0 tabs 05/24/14 06/29/25 alendronate 35 mg tablet 35 mg PO QWEEK 12/19/20 06/29/25 ergocalciferol (vitamin D2) 1,250 50,000 unit PO QWEEK 01/03/25 06/29/25 mcg (50,000 unit) capsule (Vitamin D2) levothyroxine 25 mcg tablet 25 mcg PO ACBR 06/28/25 06/28/25 Allergies Allergy/AdvReac Type Severity Reaction Status Date / Time No Known Allergies Allergy Verified 06/28/25 08:53 Review of Systems Review of Systems Systems Reviewed: All systems reviewed, normal except as documented Past Medical History Past Medical History CARDIAC: Positive Cardiac Disorders, Hypercholesterolemia and Hypertension GASTROINTESTINAL: Positive Gastrointestinal Disorders GENITOURINARY: Positive Genitourinary Disorders and Inguinal Hernia REPRODUCTIVE: Positive Previous Pregnancies MUSCULOSKELETAL: Positive Arthritis and Osteoporosis OTHER HISTORY: Positive Blood Transfusions and Measles Family History FAMILY HISTORY: Positive Family Cardiac Disorders and Family Surgery Surgical History SURGICAL: Positive Joint Replacement and Tubal Ligation Social History SMOKING STATUS: Never smoker SUBSTANCE USE: does not use ED Exam General Limitations: Present no limitations General appearance: Present alert and in no apparent distress Head Head exam: Present atraumatic Eye Eye exam: Present normal appearance, PERRL and EOMI ENT ENT exam: Present normal exam, normal oropharynx and mucous membranes moist Neck Neck exam: Present normal inspection, full ROM and trachea midline Chest Chest inspection: Present symmetric chest wall rise and other (Rigth upper chest port that is c/d/i) Respiratory Respiratory exam: Present normal lung sounds bilaterally Cardiovascular Cardiovascular exam: Present regular rate, normal rhythm and normal heart sounds Abdominal Exam Abdominal exam: Present soft and normal bowel sounds Extremities Exam Extremities exam: Present full ROM and other (Bilateral anterior knee scars consisted with bilateral knee replacements. ) Back Exam Back exam: Present normal inspection and full ROM Neurological Exam Neurological exam: Present alert, oriented X3 and CN II-XII intact Psychiatric Psychiatric exam: Present normal affect and normal mood Skin Skin exam: Present warm, dry, intact and normal color Course Quality Measures none Orders Category Date Time Status COVID-19 Screening Questionnaire NOW Care 06/28/25 15:44 Active Wood Pile Driver Operator NOW Care 06/28/25 09:57 Active Continuous Pulse Oximetry NOW Care 06/28/25 09:57 Completed Decision to Admit X1 Care 06/28/25 15:44 Completed Dressing Care/Change NEEDED Care 06/28/25 15:32 Active Insert IV NOW Care 06/28/25 09:57 Active Strict Intake and Output Routine Care 06/28/25 14:25 Ordered Diet Regular Diet 06/28/25 Lunch Active XR chest 1V Stat Exams 06/28/25 09:33 Completed Blood Culture (Lab) Stat Lab 06/28/25 10:59 Received CBC Stat Lab 06/28/25 10:20 Completed Comprehensive Metabolic Panel Stat Lab 06/28/25 10:20 Completed Influenza A & B Rapid Panel Stat Lab 06/28/25 21:48 Completed Lactic Acid [Lactate (Lactic Acid)] Stat Lab 06/28/25 10:20 Completed Magnesium Stat Lab 06/28/25 14:27 Completed Phosphorous Stat Lab 06/28/25 14:27 Completed Procalcitonin Stat Lab 06/28/25 10:20 Completed Prothrombin Time with INR Stat Lab 06/28/25 10:20 Completed Troponin I Stat Lab 06/28/25 10:20 Completed Troponin I Stat Lab 06/28/25 14:27 Completed UA, C/S IF [Urinalysis, C/S if Indicated] Stat Lab 06/28/25 10:07 Completed Acetaminophen Ivpb [Ofirmev Inj] Med 06/28/25 09:59 Discontinued 1,000 mg in 100 ml IV X1 Ondansetron Inj [Zofran Inj] Med 06/28/25 09:59 Discontinued 4 mg IVP X1 ONE Pantoprazole Inj [Protonix Inj] Med 06/28/25 09:59 Discontinued 40 mg IVP X1 ONE Piper/Tazo 3.375 gm Premix [Zosyn] Med 06/28/25 09:57 Discontinued 3.375 gm in 50 ml IV X1 Piper/Tazo 3.375 gm Premix [Zosyn] Med 06/28/25 16:30 Discontinued 3.375 gm in 50 ml IV X1 Sodium Chloride 0.9% 1000 ml [Ns] 1,434 ml Med 06/28/25 14:25 Discontinued IV 1,434 mls/hr Oxygen Delivery NOW RT 06/28/25 09:57 Active Vital Signs Vital signs: Vital Signs Temperature 98.5 F 06/28/25 09:08 Pulse Rate 92 06/28/25 09:08 Respiratory Rate 19 06/28/25 09:08 Blood Pressure 109/69 06/28/25 09:08 Pulse Oximetry (%) 96 06/28/25 09:08 Oxygen Delivery Method Room Air 06/28/25 09:08 Discussed patients PMHx, HPI, ED course, exam findings, labs, and radiology results. The hospitalist agree to accept the patient for admission. Recheck / Abnormal Lab / Rx MDM Narrative MDM Narrative:: Suzanne Fang am scribing for and in the presence of Dr. Huizar. Patient data External records reviewed:: [facility] previous records Clinical information provided by:: patient Social determinants that could affect healthcare access:: none Patient has the following chronic illnesses:: Stage IV adenocarcinoma of gallbladder, s/p cholecystectomy How is presenting disease/condition affected by chronic disease/condition?: exacerbated by Evaluation data The following diagnostics were reviewed and interpreted by me:: lab results Lab and/or radiology exams considered but not ordered:: None Interpretation Summary: Ordering Physician: Emily VALDOVINOS)Zacarias NP Date of Service: 06/28/25 Procedure(s): XR chest 1V Accession Number(s): [id number] cc: Zacarias Diaz NP, NP; Say Sood DO; Josh Watkins MD~ CLINICAL INDICATION: cp Study date and time: 06/28/2025, 10:27 a.m. TECHNIQUE: XR chest 1V COMPARISON: Chest radiograph 02/24/2024 FINDINGS: The cardiac silhouette is within normal is of size limits for portable technique. No evidence for congestive heart failure. Redemonstration of atherosclerosis and unfolding of the descending thoracic aorta. More pronounced elevation of the right hemidiaphragm compared to prior radiograph with underlying subsegmental atelectasis again noted. Very mild left basilar subsegmental atelectasis appears to be present. No segmental or lobar consolidation. No mass detected. No pleural effusion or pneumothorax. No acute osseous abnormality detected. Redemonstration of mild thoracic levoscoliosis. IMPRESSION: More pronounced elevation of the right hemidiaphragm with bibasilar subsegmental atelectases noted. No pneumonic airspace consolidation, sizable pleural effusion or evidence of congestive heart failure. - This report was generated utilizing speech recognition software. - Dictated By: Say Sood DO Signed By: <Electronically signed by Say Sood DO in OV> 06/28/25 1047 Medications / Prescriptions Medications or Prescriptions considered but not ordered:: None Medication administrations:: Medication Administration History Acetaminophen (Acetaminophen 500 Mg Tablet) 1,000 mg PO Q6H PRN PRN Reason: Fever >100.4 Stop: 07/28/25 16:54 Atorvastatin Calcium (Atorvastatin Calcium 10 Mg Tablet) 10 mg PO HS FARZANEH Stop: 07/28/25 20:59 Last Admin: 06/28/25 21:36 Dose: 10 mg Documented By: CHARLEE Heparin Sodium (Porcine) (Heparin Sod Inj 5000 Unit/Ml Vial) 5,000 unit SC Q8HR FARZANEH Stop: 07/12/25 21:59 Last Admin: 06/29/25 05:22 Dose: 5,000 unit Documented By: WB Co-signed By: RB Admin: 06/28/25 21:36 Dose: 5,000 unit Documented By: CHARLEE Co-signed By: RB Piperacillin/Tazobactam/Dextrose (Zosyn) 3.375 gm in 50 mls @ 12.5 mls/hr IV Q8HR FARZANEH; Protocol Stop: 07/05/25 22:29 Last Admin: 06/29/25 05:22 Dose: 12.5 mls/hr Documented By: Infusion: 06/29/25 02:00 Dose: Infused Documented By: Admin: 06/28/25 22:00 Dose: 12.5 mls/hr Documented By: WB Vancomycin/Sodium Chloride (Vancomycin/Ns 1 Gm Ivpb) 200 mls @ 120 mls/hr IV Q24H FARZANEH; Protocol Stop: 07/06/25 21:59 Levothyroxine Sodium (Levothyroxine Sodium 25 Mcg Tablet) 25 mcg PO ACBR FARZANEH Stop: 07/29/25 05:59 Last Admin: 06/29/25 05:22 Dose: 25 mcg Documented By: WB Pharmacy Consult (Vancomycin Pharmacy To Dose 1 Each Each) 1 each IV QDAY FARZANEH Stop: 07/29/25 08:59 Discontinued Medications Piperacillin/Tazobactam/Dextrose (Zosyn) 3.375 gm in 50 mls @ 100 mls/hr IV X1 ONE Stop: 06/28/25 10:26 Last Infusion: 06/28/25 11:43 Dose: Infused Documented By: Admin: 06/28/25 11:10 Dose: 100 mls/hr Documented By: ER Acetaminophen (Ofirmev Inj) 1,000 mg in 100 mls @ 250 mls/hr IV X1 ONE Stop: 06/28/25 10:22 Last Infusion: 06/28/25 12:07 Dose: Infused Documented By: Admin: 06/28/25 11:43 Dose: 250 mls/hr Documented By: ER Sodium Chloride (Ns) 1,434 mls @ 1,434 mls/hr 30 ml/kg infuse over 60 min (1434 ml) IV .Q1H ONE Stop: 06/28/25 15:24 Last Infusion: 06/28/25 17:05 Dose: Infused Documented By: Admin: 06/28/25 15:43 Dose: 1,434 mls/hr Documented By: ER Piperacillin/Tazobactam/Dextrose (Zosyn) 3.375 gm in 50 mls @ 100 mls/hr IV X1 ONE; Protocol Stop: 06/28/25 16:59 Last Infusion: 06/28/25 17:10 Dose: Infused Documented By: Admin: 06/28/25 16:40 Dose: 100 mls/hr Documented By: EF Sodium Chloride (Ns) 1,000 mls @ 80 mls/hr IV .[id number] ONE Stop: 06/29/25 06:57 Last Admin: 06/28/25 20:25 Dose: 80 mls/hr Documented By: WB Vancomycin HCl (Vancomycin/Water 1250 Mg Ivpb) 250 mls @ 120 mls/hr IV X1 ONE Stop: 06/28/25 21:04 Last Admin: 06/28/25 20:31 Dose: 120 mls/hr Documented By: WB Ondansetron HCl (Ondansetron Inj 2 Mg/Ml Inj 2 Ml) 4 mg IVP X1 ONE; Protocol Stop: 06/28/25 10:00 Last Admin: 06/28/25 11:12 Dose: 4 mg Documented By: ER Pantoprazole Sodium (Pantoprazole Inj 40 Mg Vial) 40 mg IVP X1 ONE Stop: 06/28/25 10:00 Last Admin: 06/28/25 11:12 Dose: 40 mg Documented By: ER See above Consultations Consultation(s) initiated? (list below): Yes Consultation #1 (Physician, Specialty, Details): I spoke with hospitalist team C for admission. Discussed patients PMHx, HPI, ED course, exam findings, labs, and radiology results. The hospitalist agree to accept the patient for admission. Time: 15:15 Diagnosis Recheck Differential Diagnosis: other Most likely diagnosis given after review of the tests above:: Leukocytosis Nausea and vomiting Metastatic gallbladder CA Admission Indicated Admission indicated?: indicated Admission Request Was there a request for admission?: Yes Admission Attestation Admission request attestation: Discussed case with [] from Hospitalist service regarding admission. Discussed patients ED course, exam findings, labs, and radiology results. The Hospitalist [agrees,declines] to accept the patient for admission. Disposition Plan Disposition Plan: Admit Discharge Plan Plan Patient Disposition: Admit Acute Care w/in Hospital Problem List Clinical Impression: Leukocytosis, Gallbladder cancer, Nausea and vomiting
[2025-06-28 15:08] LABS: Magnesium 1.6 mg/dL (1.6-2.6); Phosphorous 4.0 mg/dL (2.4-5.1)
[2025-06-28 15:09] LABS: Troponin I 0.063 ng/mL (0.0-0.045)
[2025-06-28] MEDS: SODIUM CHLORIDE 0.9% 1000 ML 1,434 ML 1434 ML IV (15:43)
--- NOTE | 2025-06-28 17:31 | PC.NURSE ---
This Rn spoke with Dr Moreland to upgrade patient to Tele orders.
--- NOTE | 2025-06-28 17:39 | ESHP_ITS ---
<Statement entered by Michela Garcia MD - 06/29/25 08:24> Ms. Ramirez is a 80 year old female with past medical history significant for hypertension, hyperlipidemia, hypothyroidism and poorly differentiated adenocarcinoma of the gallbladder s/p cholecystectomy on 02/26/2024 currently undergoing chemotherapy presented to the ED from the [facility] where patient was scheduled to undergo chemotherapy and was found to have low blood pressure and abnormal lab findings. Patient did not complete her chemo session and has 2 chemo sessions left. Patient was found to have leukocytosis and hypotension with CARMEN. No source of infection is identified as lungs are clear, denies any urinary symptoms such as dysuria or urgency however urinalysis is positive for leukocyte esterase with rare bacteria and normal white count. Chemo-Port site is also clean without any discharge or erythema. Will admit patient for IV antibiotics and monitoring. Patient was seen and examined by me personally. I have directly supervised and reviewed documentation by the team resident and agree with its findings. ------- Plan of care was discussed with the attending, Dr. Ewa Garcia, PGY-2 Documentation for date of: 06/28/25 HPI History of Present Illness History of present illness: HPI: 80-year-old female with a past medical history of stage IV gallbladder cancer presented to the ER after hypotension and leukocytosis at her chemotherapy session. She also experienced 2 episodes of vomiting the night before admission. She has been undergoing chemotherapy for the past 6 months and has 2 more sessions of treatment. Patient was admitted for management of her sepsis. Sofa score is 1 on admission. A source of infection was not identified at the time of admission. ED Course: * Vitals were significant for a BP of 97/66 in the ED. * Significant labs included a white blood cell count of 21.8, Hemoglobin 10.1, hematocrit 29.6, red blood cells standard deviation with the 54%, sodium 130, creatinine 1.6, BUN 26, glucose 144, magnesium 1.4, procalcitonin 12.58, and troponins 0.057 -> 0.063. Urine positive for leukocyte esterase, rare bacteria, negative for nitrite, blood, 5 WBC. * Imaging: Chest x-ray showed pronounced elevation of the right hemidiaphragm with bibasilar subsegmental atelectases noted. EKG showed a sinus rhythm that was negative for any acute ST segment changes. * Patient received 2 doses of Zosyn 3.375 GM each, Acetaminophen 1 g, and a 1.4 L sodium chloride bolus. Her blood pressure improved to 106/63. History: (Collected by the patient's ) * Past medical history: Stage IV gallbladder cancer, hypothyroidism, hypertension, hyperlipidemia, osteoporosis, arthritis. * Surgical history: Bilateral inguinal hernia repair on 12/20/2020, bilateral knee replacement at unknown time, cholecystectomy 2 years ago per history at [facility], laparoscopic surgery at [place] approximately 1 year ago per history * Family history: Extensive family history of unspecified cancer per history * Social history: Lives with * Allergies, no known drug allergies * Home medications: Losartan 100 mg daily, atorvastatin 10 mg daily, alendronate 35 mg weekly, vitamin D2 50,000 units weekly, levothyroxine 25 mg daily Review of Systems Review of Systems Narrative Review of Systems: Review of Systems: (Per patient's ) * General: Denies fevers, admits to chills. * HEENT: Denies headache, congestion, or sore throat. * Cardiac: Denies chest pain or palpitations. * Pulmonary: Denies shortness of breath or cough. * GI: Admits to nausea. 2 episodes of vomiting last evening. * : Denies dysuria, hematuria, frequency, or urgency. * MSK: Denies pain in the extremities, joints, or myalgias. * Neuro: Denies weakness, numbness, vision changes, or speech difficulty. Exam Vital Signs Temp Pulse Resp BP Pulse Ox O2 Del Method 97.5 F 69 19 106/63 98 Room Air 06/28/25 16:04 06/28/25 16:04 06/28/25 16:04 06/28/25 16:04 06/28/25 16:04 06/28/25 16:04 Narrative Exam General: Ill-appearing elderly lady. Neurologic: GCS 15. Alert and oriented x3, no gross neurological deficit, and patient able to move all 4 extremities. HEENT: Normocephalic, atraumatic, mucous membranes moist. Pupils reactive to light. Heart: Regular rate and rhythm, normal S1 and S2, no murmurs. Lungs: Decreased breath sounds in the bases bilaterally, no wheezes or rhonchi. Abdomen: Soft, nondistended, nontender, positive bowel sounds. No guarding or rebound tenderness. Extremities: No edema. 2+ radial and dorsalis pedis pulses bilaterally. Skin: Chemo-Port right chest, no sign of infection. Skin is warm dry with no rash or ecchymoses. Results: Labs 06/29/25 04:29 06/29/25 04:29 Labs: Short CBC 06/28/25 Range/Units 10:20 WBC 20.3 H (3.6-11.0) Thou/mm3 Hgb 10.1 L (12.0-16.0) g/dL Hct 29.6 L (36.0-46.0) % Plt Count 173 (140-440) Thou/mm3 BMP 06/28/25 10:20 Sodium 130 L Potassium 4.2 Chloride 98 Carbon Dioxide 21.7 BUN 22 Creatinine 1.4 H Glucose 116 H Calcium 9.1 Cardiac Enzymes 06/28/25 06/28/25 Range/Units 10:20 14:27 Troponin I 0.057 H* 0.063 H* (0.0-0.045) ng/mL Liver Function 06/28/25 Range/Units 10:20 Total Bilirubin 0.6 (0.3-1.2) mg/dL AST 42 H (0-34) U/L ALT 23 (10-49) U/L Alkaline Phosphatase 155 H (46-116) U/L Albumin 4.3 (3.4-4.8) gm/dL Urine 06/28/25 Range/Units 10:07 Urine Color Colorless A (Lt Yel-Yel) Urine Clarity Clear (Clear/Hazy) Urine pH 6.0 (5.0-7.0) Ur Specific [place] 1.005 (1.001-1.035) Urine Protein Negative (Neg - Trace) Urine Glucose (UA) Negative (Negative) Quality Measures Quality Measures none Advance care planning discussed with:: patient and spouse Medications Home Medications and Allergies Home Medications ?Medication ?Instructions ?Recorded ?Confirmed ?Type atorvastatin 10 mg tablet (Lipitor) 10 mg PO HS #0 tab s 05/24/14 06/28/25 History losartan 100 mg tablet 100 mg PO QDAY #0 tabs 05/2406/29/25 History alendronate 35 mg tablet 35 mg PO QWEEK 12/19/2003/16 History ergocalciferol (vitamin D2) 1,250 50,000 unit PO QWEEK 01/03/25 06/29/25 History mcg (50,000 unit) capsule (Vitamin D2) levothyroxine 25 mcg tablet 25 mcg PO ACBR 06/28/25 History Allergies Allergy/AdvReac Type Severity Reaction Status Date / Time No Known Allergies Allergy Verified 06/28/25 08:53 Visit Medications Acetaminophen (Acetaminophen 500 Mg Tablet) 1,000 mg PO Q6H PRN PRN Reason: Fever >100.4 Stop: 07/28/25 16:54 Heparin Sodium (Porcine) (Heparin Sod Inj 5000 Unit/Ml Vial) 5,000 unit SC Q8HR FARZANEH Stop: 07/12/25 21:59 Piperacillin/Tazobactam/Dextrose (Zosyn) 3.375 gm in 50 mls @ 12.5 mls/hr IV Q8HR FARZANEH; Protocol Stop: 07/05/25 22:29 Discontinued Medications Piperacillin/Tazobactam/Dextrose (Zosyn) 3.375 gm in 50 mls @ 100 mls/hr IV X1 ONE Stop: 06/28/25 10:26 Last Infusion: 06/28/25 11:43 Dose: Infused Acetaminophen (Ofirmev Inj) 1,000 mg in 100 mls @ 250 mls/hr IV X1 ONE Stop: 06/28/25 10:22 Last Infusion: 06/28/25 12:07 Dose: Infused Sodium Chloride (Ns) 1,434 mls @ 1,434 mls/hr 30 ml/kg infuse over 60 min (1434 ml) IV .Q1H ONE Stop: 06/28/25 15:24 Last Admin: 06/28/25 15:43 Dose: 1,434 mls/hr Piperacillin/Tazobactam/Dextrose (Zosyn) 3.375 gm in 50 mls @ 100 mls/hr IV X1 ONE; Protocol Stop: 06/28/25 16:59 Last Admin: 06/28/25 16:40 Dose: 100 mls/hr Ondansetron HCl (Ondansetron Inj 2 Mg/Ml Inj 2 Ml) 4 mg IVP X1 ONE; Protocol Stop: 06/28/25 10:00 Last Admin: 06/28/25 11:12 Dose: 4 mg Pantoprazole Sodium (Pantoprazole Inj 40 Mg Vial) 40 mg IVP X1 ONE Stop: 06/28/25 10:00 Last Admin: 06/28/25 11:12 Dose: 40 mg Assessment & Plan Plan Summary: 80-year-old female with a past medical history of stage IV gallbladder cancer who presented from her chemotherapy session to the ED on 06/28/2025 with hypotension and leukocytosis. She was admitted for sepsis secondary to an unidentified source at the time of admission. #Sepsis leading to distributive shock secondary to possible bacteremia #Leukocytosis #Hypotension * Patient presented with a white blood cell count of just over 20,000 * Sofa score 1 * Urine positive for leukocyte esterase, rare bacteria, negative for nitrite, blood, 5 WBC * Chemo-Port on the right chest was clean with no sign of infection on exam * Patient is afebrile, breathing on room air and satting at 98% * Patient was hypotensive at the chemotherapy clinic with an unknown blood pressure at that time, dropped to 97/66 in the ED, patient received 1.4 L of fluids and responded to a BP of 106/63 * Chest x-ray showed elevation of the right hemidiaphragm but was negative for pneumonia * Lactic acid was 1.0 * Procalcitonin 12.58 * Given that the patient's urine was negative for bacteria and chest x-ray negative for acute pneumonia, high suspicion for bacteremia as the source of infection Plan: * Follow-up blood cultures * Continue Zosyn 3.375 GM Q8 * Start vancomycin * Normal saline drip Reassessment: * Trend WBC * Monitor for hypotension #CARMEN * Creatinine 1.6 on arrival, decreased to 1.4 Plan: * Normal saline drip Reassessment: * Trend creatinine with daily labs #Hyponatremia * Sodium 130 * Likely in the setting of decreased oral intake secondary to vomiting Plan: * Normal saline drip Reassessment: * Trend sodium with daily labs #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 * Diagnostic laparoscopy in September 2024 confirmed peritoneal disease * Recent CT showed decreased liver lesion size (1.3 cm) with no new metastases * Treatment with cisplatin, gemcitabine, and durvalumab, Dr. Gentile oncologist Plan: * No direct intervention at this time by the medicine team #History of hypertension * Patient is had stage II hypertension in the past per chart review * Takes losartan at home Plan: * Will hold in the presence of suspected distributive shock #History of hypothyroidism * TSH and free T4 normal Plan: * Resume home dose 25 levothyroxine #History of osteoporosis * Patient takes alendronate at home Plan: * Hold for now #History of hyperlipidemia * Patient takes atorvastatin 10 mg at home Plan: * Will restart home statin Hospital Maintenance: DVT ppx: Heparin subcu 5000 units every 8 hours Diet: Regular diet IV lines: Peripheral IV, right anterior chest chemotherapy port Code status: Full code Dispo: Admitted for sepsis leading to distributive shock. Source not identified on admission. Blood cultures pending, started vancomycin and Zosyn. Patient was seen and discussed with my attending physician Dr. Ewa ROWE and my senior resident Dr. Jose KEENE PGY-2. Herbert Moreland DO PGY-1. Attending Provider Attestation/Addendum Stella Fang DO, attest that I was physically present for the park portions of the service and evaluated the patient with the resident and I reviewed and discussed the case with the resident and agree with the resident's findings and plans of care as documented above Patient is a 80-year-old female with past medical history of stage IV gallbladder cancer who was brought from the cancer center due to hypotension. Patient was noted to have leukocytosis on labs with a WBC count of 21.8 at the CTC. Patient states that she had 1 episode of vomiting yesterday, but has not eaten anything out of the ordinary. She denies any sick contacts. She denies any abdominal pain, shortness of breath, chest pain, fevers, dysuria, diarrhea, diaphoresis. at bedside states that the patient did have some shaking chills yesterday half an hour after the emesis episode. Per patient's , she has 2 more cycles of chemotherapy remaining. She has no acute complaints at this time. Port appears to be clean dry and intact, no erythema, edema or tenderness to palpation noted. No open wounds noted. Will admit patient to telemetry for further workup and medical management of possible sepsis and bacteremia. Will start patient on vancomycin and Zosyn as she is immunosuppressed. Will follow-up with blood cultures. Urinalysis is nonsignificant. She is noted to have a mild troponin elevation, but no acute ST or T wave changes on EKG noted. Will continue to trend troponin. Chest x-ray does not show any significant pneumonic infiltrates. Will continue with IV fluid hydration at this time.
--- NOTE | 2025-06-28 18:30 | EKG_ITS ---
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
[2025-06-28] MEDS: SODIUM CHLORIDE 0.9% 1000 ML 1,000 ML 80 ML IV (20:25)
[2025-06-28] MEDS: VANCOMYCIN/WATER 1250 MG IVPB 250 ML 120 MG IV (20:31)
[2025-06-28 21:35] LABS: Troponin I 0.054 ng/mL (0.0-0.045)
[2025-06-28] MEDS: HEPARIN SOD INJ 5000 UNIT/ML VIAL SC (21:36)
[2025-06-28] MEDS: ATORVASTATIN CALCIUM 10 MG TABLET PO (21:36)
[2025-06-28 22:29] LABS: Influenza A Ag Negative; Influenza B Ag Negative
[2025-06-29] VITALS (11 sets, daily range): BP systolic 109–150; BP diastolic 68–91; PULSE 70–92; RESP 15–96; TEMP 36.3–37.7; O2SAT 95–97; BMI 27.8
[2025-06-29] MEDS: HEPARIN SOD INJ 5000 UNIT/ML VIAL SC ×3 (05:22→21:03)
[2025-06-29] MEDS: PIPER/TAZO 3.375 GM PREMIX 3.375 GM/50 ML BAG IV ×3 (05:22→22:50)
[2025-06-29] MEDS: LEVOTHYROXINE SODIUM 25 MCG TABLET PO (05:22)
[2025-06-29 06:16] LABS: Basophils # (Auto) 0.0 Thou/mm3 (0.0-0.2); Basophils % (Auto) 0 % (0-2.5); Eosinophils # (Auto) 0.1 Thou/mm3 (0.0-0.5); Eosinophils % (Auto) 1 % (0-10); Hematocrit 29.2 % (36.0-46.0); Hemoglobin 9.6 g/dL (12.0-16.0); Immature Granulocytes Auto 0.05 Thou/mm3 (0.00-0.00); Lymphocytes # (Auto) 0.6 Thou/mm3 (1.0-4.8); Lymphocytes % (Auto) 6 % (10-50); Mean Corpuscular HGB Conc 32.9 g/dl (31.0-37.0); Mean Corpuscular Hemoglobin 31.5 pg (25.0-35.0); Mean Corpuscular Volume 96 fL (80-100); Monocytes # (Auto) 0.5 Thou/mm3 (0.0-0.8); Monocytes % (Auto) 5 % (0-12); Neutrophils # (Auto) 8.7 Thou/mm3 (1.8-7.7); Neutrophils % (Auto) 87 % (37-80); Nucleated Red Blood Cell # 0.00 Thou/mm3 (0.00-0.00); Nucleated Red Blood Cell % 0 /100 WBC (0); Platelet Count 162 Thou/mm3 (140-440); RDW Standard Deviation 54.5 fL (36.4-46.3); Red Blood Count 3.05 Miln/mm3 (4.00-5.20); White Blood Count 10.0 Thou/mm3 (3.6-11.0)
[2025-06-29 06:45] LABS: Alanine Aminotransferase 18 U/L (10-49); Albumin, Serum 3.9 gm/dL (3.4-4.8); Albumin/Globulin Ratio 2.3 (1.2-2.2); Alkaline Phosphatase 126 U/L (46-116); Anion Gap 11 (7-16); Aspartate Amino Transferase 28 U/L (0-34); BUN/Creatinine Ratio 15 Ratio (12-20); Bilirubin,Total 0.3 mg/dL (0.3-1.2); Blood Urea Nitrogen 19 mg/dL (9-23); Calcium 8.5 mg/dL (8.3-10.6); Calcium (Corrected) 8.6 mg/dL (8.5-10.1); Carbon Dioxide 21.1 mMol/L (20.0-31.0); Chloride 107 mMol/L (98-107); Creatinine (Component) 1.3 mg/dL (0.6-1.3); Estimated Creatinine Clearance 30.2 mL/min (>60); Globulin 1.7 gm/dL (2.3-3.5); Glucose 99 mg/dL (74-106); Magnesium 1.6 mg/dL (1.6-2.6); Osmolality,Calculated 279 (275-295); Phosphorous 3.8 mg/dL (2.4-5.1); Potassium 4.2 mMol/L (3.4-5.1); Sodium 139 mMol/L (136-145); Total Protein 5.6 gm/dL (5.7-8.2); Troponin I 0.039 ng/mL (0.0-0.045); eGFR 42 See Note
[2025-06-29 09:18] LABS: Iron 11 mcg/dL (50-170); Percent Iron Saturation 4 % (20-55); Total Iron Binding Capacity 251 mcg/dL (250-425); Unsaturated Iron Binding 240 (225-295)
--- NOTE | 2025-06-29 10:42 | ECHO_ITS ---
Patient Info Name: Kerry Ramirez Age: 80 years : 1945 Gender: Female Ht: 155 cm Wt: 67 kg BSA: 1.71 m2 BP: 133 / 81 mmHg HR: 77 bpm Exam Date: 06/29/2025 12:41 PM Admit Date: 06/28/2025 Site: [facility] Room Number: [id number] Patient Status: I Exam Type: CA echo doppler complete Medical Transport Specialist: Trista Lino Ordering Physician: Herbert Moreland Study Info Indications Stage 4 cancer, hypercoagulable, septic on arrival. - Primary Location: S3NX Left Ventricular Outflow Tract Name Value Normal LVOT 2D LVOT Diameter 1.9 cm LVOT Doppler LVOT Peak Velocity 111 cm/s LVOT Mean Gradient 3 mmHg LVOT VTI 22 cm LVOT VTI/AV VTI Ratio 0.7 LVOT Stroke Volume 63 ml Pulmonic Valve Name Value Normal PV Doppler PV Peak Velocity 88 cm/s Mitral Valve Name Value Normal MV Doppler MV Decel [place] 284 cm/s2 MV PHT 67 ms MV Area (PHT) 3.3 cm2 4.0-5.0 MV Diastolic Function MV E Peak Velocity 66 cm/s MV A Peak Velocity 101 cm/s MV E/A 0.7 MV Annular TDI MV Lateral e' Velocity 6.4 cm/s MV E/e' (Lateral) 10.3 Tricuspid Valve Name Value Normal TV Regurgitation Doppler TR Peak Velocity 270 cm/s Estimated PAP/RSVP RA Pressure 3 mmHg <=5 PA Systolic Pressure 32 mmHg <36 RV Systolic Pressure 32 mmHg <36 Aortic Valve Name Value Normal AV 2D/MM AV Cusp Sep (MM) 1.0 cm AV Doppler AV Peak Velocity 161 cm/s AV Mean Gradient 5 mmHg AV VTI 31 cm AV Area (Cont Eq VTI) 2.0 cm2 >=3.0 AV Area (Cont Eq Damian) 2.0 cm2 AV DI (Damian) 0.69 AV Regurgitation 2D LVOT Area 2.8 cm2 Ventricles Name Value Normal LV Dimensions 2D/MM IVS Diastolic Thickness (2D) 1.0 cm 0.6-0.9 LVID Diastole (2D) 3.6 cm 3.8-5.2 LVIW Diastolic Thickness (2D) 1.0 cm 0.6-0.9 LVID Systole (2D) 2.3 cm 2.2-3.5 LVOT Diameter 1.9 cm LV Mass (2D Cubed) 107.89 g 67.00-162.00 LV Mass Index (2D Cubed) 63 g/m2 43-95 Relative Wall Thickness (2D) 0.56 <=0.42 IVS/LVIW Diastolic Thickness (2D) 1.00 0.00-1.50 LV Fractional Shortening/Ejection Fraction 2D/MM LV Fractional Shortening (2D) 36 % 27-45 LV EF (2D Teichholz) 67 % Atria Name Value Normal LA Dimensions LA Volume (4C A-L) 31 ml LA Volume (BP A-L) 33 ml Left Ventricle Left ventricular chamber dimension is normal. Left ventricular systolic function is normal with visually estimated ejection fraction of 60-65%. There is mild concentric hypertrophy noted in the left ventricle. Left ventricular segmental wall motion is normal. There is grade I diastolic dysfunction in the left ventricle. Right Ventricle Right ventricular chamber dimension is normal. Right ventricular systolic function is normal. Left Atrium Left atrial chamber dimension is normal. Right Atrium Right atrial chamber dimension is normal. Aortic Valve The aortic valve is trileaflet. There is mild aortic valve sclerosis. There is no aortic valve stenosis with a peak velocity of 161 cm/s, mean gradient of 5 mmHg, and aortic valve area of 2.0 cm2. There is no aortic valve regurgitation. Pulmonic Valve The pulmonic valve is normal. There is no pulmonic valve stenosis. There is no pulmonic regurgitation. Mitral Valve The mitral valve has thickened leaflets. There is no mitral valve stenosis. There is trace mitral valve regurgitation. Tricuspid Valve The tricuspid valve leaflets are normal. There is no tricuspid valve stenosis. There is mild tricuspid valve regurgitation. No pulmonary hypertension, estimated pulmonary arterial systolic pressure is 32 mmHg and systemic blood pressure of 133 mmHg in systole. Pericardium/Pleural The pericardium appears normal. There is no pericardial effusion. No pleural effusion visualized. Inferior Vena Cava Normal inferior vena cava with >50% collapse upon inspiration consistent with normal right atrial pressure, 3 mmHg. Aorta The aortic measurements are indexed to age and body surface area. The aortic root at the sinus of Valsalva is not well visualized. The prox ascending aorta is not well visualized. Summary 1. Left ventricle size is normal and systolic function is normal. Estimated ejection fraction is 60-65%. There is grade I diastolic dysfunction. There is mild concentric hypertrophy noted. 2. Right ventricle chamber size is normal and systolic function is normal. Estimated RVSP is 32 mmHg. Mild HTN. 3. There is mild aortic valve sclerosis with no stenosis and no regurgitation. 4. There is trace mitral valve regurgitation. 5. The mitral valve has thickened leaflets. 6. There is mild tricuspid valve regurgitation. 7. Normal IVC with estimated RA pressure 3 mmHg. Report Signatures Finalized by April Sethi on 06/30/2025 12:56 AM
--- NOTE | 2025-06-29 14:28 | ESPR_ITS ---
<Statement entered by Michela Garcia MD - 06/29/25 16:44> Patient is seen at bedside. No febrile episodes overnight blood pressure is within normal limits no new episodes of hypotension. Leukocyte count dropped from 21.8-10 and today's lab however blood cultures are pending, will continue IV antibiotics. And will order echocardiogram. Patient was seen and examined by me personally. I have directly supervised and reviewed documentation by the team resident and agree with its findings. ------- Plan of care was discussed with the attending, Dr. Janie Garcia, PGY-2 Documentation for date of: 06/29/25 Subjective Subjective Interval history: Patient seen and examined at bedside. Blood cultures still pending, white blood cell count improved to normal. Continuing Vanco and Zosyn. Patient received 1 liter normal saline overnight and blood pressure currently stable along with her other vitals. Exam Vital Signs Temp Pulse Resp BP Pulse Ox O2 Del Method 97.6 F 92 16 124/77 95 Room Air 06/29/25 12:00 06/29/25 12:00 06/29/25 12:00 06/29/25 12:00 06/29/25 12:00 06/29/25 12:00 Narrative Exam General: Ill-appearing elderly lady. Neurologic: GCS 15. Alert and oriented x3, no gross neurological deficit, and patient able to move all 4 extremities. HEENT: Normocephalic, atraumatic, mucous membranes moist. Pupils reactive to light. Heart: Regular rate and rhythm, normal S1 and S2, no murmurs. Lungs: Decreased breath sounds in the bases bilaterally, no wheezes or rhonchi. Abdomen: Soft, nondistended, nontender, positive bowel sounds. No guarding or rebound tenderness. Extremities: No edema. 2+ radial and dorsalis pedis pulses bilaterally. Skin: Chemo-Port right chest, no sign of infection. Skin is warm dry with no rash or ecchymoses. Objective Labs 06/29/25 04:29 06/29/25 04:29 Labs: Laboratory Results - last 24 hr 06/28/25 06/28/25 06/28/25 14:27 20:48 21:48 WBC RBC Hgb Hct MCV MCH MCHC RDW Std Deviation Plt Count Neut % (Auto) Lymph % (Auto) [place] % (Auto) Eos % (Auto) Baso % (Auto) Neut # (Auto) Lymph # (Auto) [place] # (Auto) Eos # (Auto) Baso # (Auto) Immature Gran # (Auto) Absolute Nucleated RBC Immature Gran % Nucleated RBC % Sodium Potassium Chloride Carbon Dioxide Anion Gap BUN Creatinine Estim Creat Clear Calc eGFR BUN/Creatinine Ratio Glucose Calculated Osmolality Calcium Corrected Calcium Phosphorus 4.0 Magnesium 1.6 Iron TIBC Iron Saturation Unsat Iron Binding Total Bilirubin AST ALT Alkaline Phosphatase Troponin I 0.063 H* 0.054 H* Total Protein Albumin Globulin Albumin/Globulin Ratio Influenza A (Rapid) Negative Influenza B (Rapid) Negative 06/29/25 04:29 WBC 10.0 D RBC 3.05 L Hgb 9.6 L Hct 29.2 L MCV 96 MCH 31.5 MCHC 32.9 RDW Std Deviation 54.5 H Plt Count 162 Neut % (Auto) 87 H Lymph % (Auto) 6 L [place] % (Auto) 5 Eos % (Auto) 1 Baso % (Auto) 0 Neut # (Auto) 8.7 H Lymph # (Auto) 0.6 L [place] # (Auto) 0.5 Eos # (Auto) 0.1 Baso # (Auto) 0.0 Immature Gran # (Auto) 0.05 H Absolute Nucleated RBC 0.00 Immature Gran % 1 H Nucleated RBC % 0 Sodium 139 Potassium 4.2 Chloride 107 Carbon Dioxide 21.1 Anion Gap 11 BUN 19 Creatinine 1.3 Estim Creat Clear Calc 30.2 L eGFR 42 L BUN/Creatinine Ratio 15 Glucose 99 Calculated Osmolality 279 Calcium 8.5 Corrected Calcium 8.6 Phosphorus 3.8 Magnesium 1.6 Iron 11 L TIBC 251 Iron Saturation 4 L Unsat Iron Binding 240 Total Bilirubin 0.3 AST 28 ALT 18 Alkaline Phosphatase 126 H D Troponin I 0.039 Total Protein 5.6 L Albumin 3.9 Globulin 1.7 L Albumin/Globulin Ratio 2.3 H Influenza A (Rapid) Influenza B (Rapid) Quality Measures Quality Measures none Advance care planning discussed with:: patient and spouse Assessment & Plan Assessment Current Active Medications: Generic Name Dose Route Start Last Admin Trade Name Freq PRN Reason Stop Dose Admin Acetaminophen 1,000 mg 06/28/25 16:55 Acetaminophen 500 Mg Tablet PO 07/28/25 16:54 Q6H PRN Fever >100.4 Atorvastatin Calcium 10 mg 06/28/25 21:00 06/28/25 21:36 Atorvastatin Calcium 10 Mg Tablet PO 07/28/25 20:59 10 mg HS FARZANEH Administration Heparin Sodium (Porcine) 5,000 unit 06/28/25 22:00 06/29/25 05:22 Heparin Sod Inj 5000 Unit/Ml Vial SC 07/12/25 21:59 5,000 unit Q8HR FARZANEH Administration Piperacillin/Tazobactam/Dextrose 3.375 gm in 50 mls @ 12.5 mls/hr 06/28/25 22:30 06/29/25 05:22 Zosyn IV 07/05/25 22:29 12.5 mls/hr Q8HR FARZANEH Administration Protocol Vancomycin/Sodium Chloride 200 mls @ 120 mls/hr 06/29/25 22:00 Vancomycin/Ns 1 Gm Ivpb IV 07/06/25 21:59 Q24H FARZANEH Protocol Levothyroxine Sodium 25 mcg 06/29/25 06:00 06/29/25 05:22 Levothyroxine Sodium 25 Mcg Tablet PO 07/29/25 05:59 25 mcg ACBR FARZANEH Administration Pharmacy Consult 1 each 06/29/25 09:00 06/29/25 09:05 Vancomycin Pharmacy To Dose 1 Each Each IV 07/29/25 08:59 Not Given QDAY FARZANEH Plan Summary: 80-year-old female with a past medical history of stage IV gallbladder cancer who presented from her chemotherapy session to the ED on 06/28/2025 with hypotension and leukocytosis. She was admitted for sepsis secondary to an unidentified source at the time of admission. #Sepsis leading to distributive shock secondary to possible bacteremia #Leukocytosis #Hypotension * Patient presented with a white blood cell count of just over 20,000 * Sofa score 1 on admission * Urine positive for leukocyte esterase, rare bacteria, negative for nitrite, blood, 5 WBC * Chemo-Port on the right chest was clean with no sign of infection on exam * Patient is afebrile, breathing on room air and satting at 98% * Patient was hypotensive at the chemotherapy clinic with an unknown blood pressure at that time, dropped to 97/66 in the ED, patient received 1.4 L of fluids and responded to a BP of 106/63 * Chest x-ray showed elevation of the right hemidiaphragm but was negative for pneumonia * Lactic acid was 1.0 * Procalcitonin 12.58 * Given that the patient's urine was negative for bacteria and chest x-ray negative for acute pneumonia, high suspicion for bacteremia as the source of infection Plan: * Follow-up blood cultures * Continue Zosyn 3.375 GM Q8 * Continue Vancomycin * Echo ordered * Orthostatic vitals ordered Reassessment: * Trend WBC, has improved to normal, may be response to antibiotics or fluid resuscitation * Monitor for hypotension #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 * Diagnostic laparoscopy in September 2024 confirmed peritoneal disease * Recent CT showed decreased liver lesion size (1.3 cm) with no new metastases * Treatment with cisplatin, gemcitabine, and durvalumab, Dr. Gentile oncologist Plan: * No direct intervention at this time by the medicine team #History of hypertension * Patient is had stage II hypertension in the past per chart review * Takes losartan at home Plan: * Will hold in the presence of suspected distributive shock #History of hypothyroidism * TSH and free T4 normal Plan: * Continue home 25 mcg levothyroxine #History of osteoporosis * Patient takes alendronate at home Plan: * Hold for now #History of hyperlipidemia * Patient takes atorvastatin 10 mg at home Plan: * Continue home statin #NSTEMI type II (Resolved) * Troponins elevated on arrival, downtrended * EKG showed a sinus rhythm negative for any acute ST segment changes #CARMEN (Resolved) * Creatinine 1.3 #Hyponatremia (Resolved) * Sodium 139 Hospital Maintenance: DVT ppx: Heparin subcu 5000 units every 8 hours Diet: Regular diet IV lines: Peripheral IV, right anterior chest chemotherapy port Code status: Full code Dispo: White blood cell count has normalized, continuing vancomycin and Zosyn, pending blood cultures, blood pressure stable. Patient was seen and discussed with my attending physician Dr. Ewa ROWE and my senior resident Dr. Jose KEENE PGY-2. Herbert Moreland DO PGY-1. Attending Provider Attestation/Addendum Leoncio, Stella Mcneil DO, attest that I was physically present for the park portions of the service and evaluated the patient with the resident and I reviewed and discussed the case with the resident and agree with the resident's findings and plans of care as documented above Patient seen and evaluated this AM. Patient states she is feeling well and has no nausea, vomiting, chest pain, shortness of breath, fevers, chills, abdominal pain, diarrhea, lightheadedness or dysuria at this time. is at bedside as well. Leukocytosis is greatly improved from 21-10 currently. Will follow-up with final cultures and sensitivities of blood culture. Will continue vancomycin and Zosyn. Encourage patient to continue p.o. hydration. Anticipate discharge within the next 24 hours if blood cultures are negative.
[2025-06-29] MEDS: VANCOMYCIN/NS 1 GM IVPB 200 ML IV (21:03)
[2025-06-29] MEDS: ATORVASTATIN CALCIUM 10 MG TABLET PO (21:03)
[2025-06-30] VITALS: BP 128/80; PULSE 73; RESP 16; TEMP 36.2; O2SAT 99
[2025-06-30 01:32] VITALS: PULSE 80; RESP 16; RESP 95
[2025-06-30 04:00] VITALS: BP 136/83; PULSE 78; RESP 16; TEMP 36.1; O2SAT 98
[2025-06-30] MEDS: PIPER/TAZO 3.375 GM PREMIX 3.375 GM/50 ML BAG IV (05:29)
[2025-06-30] MEDS: HEPARIN SOD INJ 5000 UNIT/ML VIAL SC (05:29)
[2025-06-30] MEDS: LEVOTHYROXINE SODIUM 25 MCG TABLET PO (05:29)
[2025-06-30 06:00] VITALS: BMI 27.9
[2025-06-30 06:13] LABS: Basophils # (Auto) 0.1 Thou/mm3 (0.0-0.2); Basophils % (Auto) 1 % (0-2.5); Eosinophils # (Auto) 0.3 Thou/mm3 (0.0-0.5); Eosinophils % (Auto) 4 % (0-10); Hematocrit 30.6 % (36.0-46.0); Hemoglobin 10.1 g/dL (12.0-16.0); Immature Granulocytes Auto 0.06 Thou/mm3 (0.00-0.00); Lymphocytes # (Auto) 1.4 Thou/mm3 (1.0-4.8); Lymphocytes % (Auto) 20 % (10-50); Mean Corpuscular HGB Conc 33.0 g/dl (31.0-37.0); Mean Corpuscular Hemoglobin 31.3 pg (25.0-35.0); Mean Corpuscular Volume 95 fL (80-100); Monocytes # (Auto) 0.8 Thou/mm3 (0.0-0.8); Monocytes % (Auto) 11 % (0-12); Neutrophils # (Auto) 4.3 Thou/mm3 (1.8-7.7); Neutrophils % (Auto) 63 % (37-80); Nucleated Red Blood Cell # 0.00 Thou/mm3 (0.00-0.00); Nucleated Red Blood Cell % 0 /100 WBC (0); Platelet Count 209 Thou/mm3 (140-440); RDW Standard Deviation 53.5 fL (36.4-46.3); Red Blood Count 3.23 Miln/mm3 (4.00-5.20); White Blood Count 6.8 Thou/mm3 (3.6-11.0)
[2025-06-30 06:39] LABS: Alanine Aminotransferase 16 U/L (10-49); Albumin, Serum 4.3 gm/dL (3.4-4.8); Albumin/Globulin Ratio 2.3 (1.2-2.2); Alkaline Phosphatase 125 U/L (46-116); Anion Gap 11 (7-16); Aspartate Amino Transferase 25 U/L (0-34); BUN/Creatinine Ratio 14 Ratio (12-20); Bilirubin,Total 0.3 mg/dL (0.3-1.2); Blood Urea Nitrogen 18 mg/dL (9-23); Calcium 9.4 mg/dL (8.3-10.6); Calcium (Corrected) 9.4 mg/dL (8.5-10.1); Carbon Dioxide 22.7 mMol/L (20.0-31.0); Chloride 106 mMol/L (98-107); Creatinine (Component) 1.3 mg/dL (0.6-1.3); Estimated Creatinine Clearance 30.2 mL/min (>60); Globulin 1.9 gm/dL (2.3-3.5); Glucose 96 mg/dL (74-106); Osmolality,Calculated 281 (275-295); Potassium 4.2 mMol/L (3.4-5.1); Sodium 140 mMol/L (136-145); Total Protein 6.2 gm/dL (5.7-8.2); eGFR 42 See Note
[2025-06-30 07:21] VITALS: PULSE 76; RESP 18; RESP 95
[2025-06-30 08:00] VITALS: BP 142/87; PULSE 82; RESP 19; TEMP 36.2; O2SAT 96
[2025-06-30 12:00] VITALS: BP 137/84; PULSE 80; RESP 16; TEMP 36.4; O2SAT 98
--- NOTE | 2025-06-30 18:23 | ESDS_ITS ---
<Statement entered by Stella Mcneil DO - 07/01/25 07:41> I, Stella Mcneil DO, attest that I was physically present for the park portions of the service and evaluated the patient with the resident and I reviewed and discussed the case with the resident and agree with the resident's findings and plans of care as documented above Planned Discharge Date 06/30/25 DS: Providers Provider Date of admission: 06/28/25 16:49 Primary care physician: Josh Watkins MD Admitting Provider: Stella Mcneil DO Attending Provider on Admission: Stella Mcneil DO Attending Provider on DC: Stella Mcneil DO Discharging Provider: Herbert Moreland DO DS: Diagnosis Discharge Diagnosis (1) Nausea and vomiting: Status: Acute (2) Gallbladder cancer: Status: Acute Problem List Completed Was Problem List Reviewed/Reconciled?: Yes Hospital Course Hospital Course Hospital course: Hospital Course: 80-year-old female with a past medical history of stage IV gallbladder cancer presented to the ER after hypotension and leukocytosis at her chemotherapy session. She also experienced 2 episodes of vomiting the night before presentation. She has been undergoing chemotherapy for the past 6 months and has 2 more sessions of treatment. She was found to have a WBC count of 21.8. Count of 12.58. The patient was hypotensive. Patient was admitted for management of her sepsis. Sofa score was 1 on admission. A source of infection was not identified at the time of admission. The patient was treated with vancomycin and Zosyn as well as IV fluids and her white count improved to a normal level on hospital day 2. Her blood pressure normalized. Blood cultures were negative. The patient was likely dehydrated. Her vitals are stable upon discharge. Problem List: #Leukocytosis #Hypotension #Dehydration #Suspected bacteremia, ruled out. #Stage IV gallbladder cancer #History of hypertension #History of hypothyroidism #History of osteoporosis #History of hyperlipidemia #NSTEMI type II (Resolved) #CARMEN (Resolved) #Hyponatremia (Resolved) Discharge Instructions: * Stop taking your losartan * Continue taking all other home medications as prescribed * Follow-up with PCP Josh Watkins within 1-2 weeks of discharge * You can also follow-up at the [facility] * Return to the emergency room if symptoms worsen The patient was seen and discussed with my attending physician Dr. Ewa ROWE. Herbert Moreland DO PGY-1 Time Spent with Patient Time attestation: Total time spent providing and/or coordinating discharge services: More than 50% Time spent: Greater than 30 minutes Exam Vital Signs Temp Pulse Resp BP Pulse Ox O2 Del Method 97.6 F 80 16 137/84 H 98 Room Air 06/30/25 12:00 06/30/25 12:00 06/30/25 12:00 06/30/25 12:00 06/30/25 12:00 06/30/25 12:00 Narrative Exam General: Elderly lady. Conversational and nontoxic appearing Neurologic: GCS 15. Alert and oriented x3, no gross neurological deficit, and patient able to move all 4 extremities. HEENT: Normocephalic, atraumatic, mucous membranes moist. Pupils reactive to light. Heart: Regular rate and rhythm, normal S1 and S2, no murmurs. Lungs: Decreased breath sounds in the bases bilaterally, no wheezes or rhonchi. Abdomen: Soft, nondistended, nontender, positive bowel sounds. No guarding or rebound tenderness. Extremities: No edema. 2+ radial and dorsalis pedis pulses bilaterally. Skin: Chemo-Port right chest, no sign of infection. Skin is warm dry with no rash or ecchymoses. Discharge Plan Plan Patient Disposition: HOME (Self Care) Patient condition on transfer: Stable Care Plan Goals: Instructions: * Stop taking your losartan * Continue taking all other home medications as prescribed * Follow-up with PCP Josh Watkins within 1-2 weeks of discharge * You can also follow-up at the [facility] * Return to the emergency room if symptoms worsen Prescriptions/Referrals Prescriptions/Med Rec: Continued atorvastatin [Lipitor] 10 MG tablet 10 mg PO HS Qty: 0 alendronate 35 mg Tablet 35 mg PO QWEEK ergocalciferol (vitamin D2) [Vitamin D2] 1,250 mcg (50,000 unit) capsule 50,000 unit PO QWEEK levothyroxine 25 mcg tablet 25 mcg PO ACBR Patient Comments: TAKE 1 TABLET BY MOUTH ONCE DAILY Held losartan 100 mg Tablet 100 mg PO QDAY Qty: 0 Hold Instructions: F/u with PCP Referrals: Josh Watkins MD [Primary Care Provider, Family Practice] Patient/Caregiver Discharge Instructions Education Materials: Hypotension Dc, Cancer Overview Print Language: Croatian Stand Alone Forms: Sraah Award Info., Patient Portal Info Letter Discharge Order Discharge Orders: Discharge (Routine); Ordered 06/30/25 Ordered By: Herbert Moreland Quality Discharge Quality Measures none
== END 2025-06-30 13:22 | disposition home or self-care (01) | DRG 871 ==
LOC: SERX 16:51 → SERHOLD 18:04 → S3NX 06-29 05:54
PROVIDERS: Nurse Practitioner Primary Care; Admitting Provider Internal Medicine; Emergency Provider Family Medicine; PCP Family Medicine; Visit Provider Internal Medicine
DX: A41.9 Sepsis, unspecified organism (principal); R57.8 Other shock; N17.9 Acute kidney failure, unspecified; E87.1 Hypo-osmolality and hyponatremia; C23 Malignant neoplasm of gallbladder; I10 Essential (primary) hypertension; E03.9 Hypothyroidism, unspecified; M81.0 Age-related osteoporosis without current pathological fracture; E86.0 Dehydration; E78.5 Hyperlipidemia, unspecified; I95.9 Hypotension, unspecified; Z79.83 Long term (current) use of bisphosphonates; Z79.890 Hormone replacement therapy; Z85.09 Personal history of malignant neoplasm of other digestive organs; Z90.49 Acquired absence of other specified parts of digestive tract
CPT/HCPCS: 36415; 71045; 80053; 81001; 83540; 83550; 83605; 83735; 84100; 84145; 84484; 85025; 85610; 87040; 87081; 87502; 93005; 93225; 93306; 96361; 96365; 96375; 99284; J0131; J1644; J2405; J2470; J2543; J3373; J3375; J7030; A9270

== ENCOUNTER 2025-07-18 08:52 | Outpatient (RCR) | payer MEDICARE, MEDICAID, SELFPAY ==
[2025-06-27 15:13] LABS: Basophils # (Auto) 0.1 Thou/mm3 (0.0-0.2); Basophils % (Auto) 1 % (0-2.5); Eosinophils # (Auto) 0.1 Thou/mm3 (0.0-0.5); Eosinophils % (Auto) 2 % (0-10); Hematocrit 29.1 % (36.0-46.0); Hemoglobin 9.8 g/dL (12.0-16.0); Immature Granulocytes Auto 0.06 Thou/mm3 (0.00-0.00); Lymphocytes # (Auto) 1.2 Thou/mm3 (1.0-4.8); Lymphocytes % (Auto) 20 % (10-50); Mean Corpuscular HGB Conc 33.7 g/dl (31.0-37.0); Mean Corpuscular Hemoglobin 32.3 pg (25.0-35.0); Mean Corpuscular Volume 96 fL (80-100); Monocytes # (Auto) 0.8 Thou/mm3 (0.0-0.8); Monocytes % (Auto) 12 % (0-12); Neutrophils # (Auto) 4.0 Thou/mm3 (1.8-7.7); Neutrophils % (Auto) 65 % (37-80); Nucleated Red Blood Cell # 0.00 Thou/mm3 (0.00-0.00); Nucleated Red Blood Cell % 0 /100 WBC (0); Platelet Count 149 Thou/mm3 (140-440); RDW Standard Deviation 55.5 fL (36.4-46.3); Red Blood Count 3.03 Miln/mm3 (4.00-5.20); White Blood Count 6.3 Thou/mm3 (3.6-11.0)
[2025-06-27 15:32] LABS: Magnesium 1.8 mg/dL (1.6-2.6)
[2025-06-27 15:41] LABS: Alanine Aminotransferase 15 U/L (10-49); Albumin, Serum 4.4 gm/dL (3.4-4.8); Albumin/Globulin Ratio 2.4 (1.2-2.2); Alkaline Phosphatase 146 U/L (46-116); Anion Gap 12 (7-16); Aspartate Amino Transferase 27 U/L (0-34); BUN/Creatinine Ratio 16 Ratio (12-20); Bilirubin,Total 0.4 mg/dL (0.3-1.2); Blood Urea Nitrogen 22 mg/dL (9-23); Calcium 8.9 mg/dL (8.3-10.6); Calcium (Corrected) 8.9 mg/dL (8.5-10.1); Carbon Dioxide 21.7 mMol/L (20.0-31.0); Chloride 100 mMol/L (98-107); Creatinine (Component) 1.4 mg/dL (0.6-1.3); Free T4 (Free Thyroxine) 1.26 ng/dL (0.89-1.76); Globulin 1.8 gm/dL (2.3-3.5); Glucose 127 mg/dL (74-106); Osmolality,Calculated 273 (275-295); Potassium 4.6 mMol/L (3.4-5.1); Sodium 134 mMol/L (136-145); Thyroid Stimulating Hormone 1.59 uIU/mL (0.55-4.78); Total Protein 6.2 gm/dL (5.7-8.2); eGFR 38 See Note
[2025-06-28 07:54] LABS: Basophils # (Auto) 0.1 Thou/mm3 (0.0-0.2); Basophils % (Auto) 1 % (0-2.5); Eosinophils # (Auto) 0.0 Thou/mm3 (0.0-0.5); Eosinophils % (Auto) 0 % (0-10); Hematocrit 31.1 % (36.0-46.0); Hemoglobin 10.5 g/dL (12.0-16.0); Immature Granulocytes Auto 0.15 Thou/mm3 (0.00-0.00); Lymphocytes # (Auto) 0.8 Thou/mm3 (1.0-4.8); Lymphocytes % (Auto) 4 % (10-50); Mean Corpuscular HGB Conc 33.8 g/dl (31.0-37.0); Mean Corpuscular Hemoglobin 32.2 pg (25.0-35.0); Mean Corpuscular Volume 95 fL (80-100); Monocytes # (Auto) 0.8 Thou/mm3 (0.0-0.8); Monocytes % (Auto) 4 % (0-12); Neutrophils # (Auto) 19.9 Thou/mm3 (1.8-7.7); Neutrophils % (Auto) 91 % (37-80); Nucleated Red Blood Cell # 0.00 Thou/mm3 (0.00-0.00); Nucleated Red Blood Cell % 0 /100 WBC (0); Platelet Count 192 Thou/mm3 (140-440); RDW Standard Deviation 54.8 fL (36.4-46.3); Red Blood Count 3.26 Miln/mm3 (4.00-5.20); White Blood Count 21.8 Thou/mm3 (3.6-11.0)
[2025-06-28 08:02] LABS: Magnesium 1.4 mg/dL (1.6-2.6)
[2025-06-28 08:04] LABS: Alanine Aminotransferase 24 U/L (10-49); Albumin, Serum 4.4 gm/dL (3.4-4.8); Albumin/Globulin Ratio 2.4 (1.2-2.2); Alkaline Phosphatase 159 U/L (46-116); Anion Gap 12 (7-16); Aspartate Amino Transferase 47 U/L (0-34); BUN/Creatinine Ratio 16 Ratio (12-20); Bilirubin,Total 0.7 mg/dL (0.3-1.2); Blood Urea Nitrogen 26 mg/dL (9-23); Calcium 8.9 mg/dL (8.3-10.6); Calcium (Corrected) 8.9 mg/dL (8.5-10.1); Carbon Dioxide 21.9 mMol/L (20.0-31.0); Chloride 98 mMol/L (98-107); Creatinine (Component) 1.6 mg/dL (0.6-1.3); Globulin 1.8 gm/dL (2.3-3.5); Glucose 144 mg/dL (74-106); Osmolality,Calculated 272 (275-295); Potassium 4.3 mMol/L (3.4-5.1); Sodium 132 mMol/L (136-145); Total Protein 6.2 gm/dL (5.7-8.2); eGFR 32 See Note
[2025-07-04 09:44] LABS: Basophils # (Auto) 0.1 Thou/mm3 (0.0-0.2); Basophils % (Auto) 1 % (0-2.5); Eosinophils # (Auto) 0.1 Thou/mm3 (0.0-0.5); Eosinophils % (Auto) 2 % (0-10); Hematocrit 30.1 % (36.0-46.0); Hemoglobin 10.0 g/dL (12.0-16.0); Immature Granulocytes Auto 0.07 Thou/mm3 (0.00-0.00); Lymphocytes # (Auto) 1.1 Thou/mm3 (1.0-4.8); Lymphocytes % (Auto) 19 % (10-50); Mean Corpuscular HGB Conc 33.2 g/dl (31.0-37.0); Mean Corpuscular Hemoglobin 31.6 pg (25.0-35.0); Mean Corpuscular Volume 95 fL (80-100); Monocytes # (Auto) 0.7 Thou/mm3 (0.0-0.8); Monocytes % (Auto) 13 % (0-12); Neutrophils # (Auto) 3.7 Thou/mm3 (1.8-7.7); Neutrophils % (Auto) 63 % (37-80); Nucleated Red Blood Cell # 0.00 Thou/mm3 (0.00-0.00); Nucleated Red Blood Cell % 0 /100 WBC (0); Platelet Count 285 Thou/mm3 (140-440); RDW Standard Deviation 53.6 fL (36.4-46.3); Red Blood Count 3.16 Miln/mm3 (4.00-5.20); White Blood Count 5.8 Thou/mm3 (3.6-11.0)
[2025-07-04 09:56] LABS: Magnesium 1.6 mg/dL (1.6-2.6)
[2025-07-04 10:00] LABS: Carcinoembryonic Antigen 1.1 ng/mL (0.0-5.0)
[2025-07-04 10:13] LABS: Alanine Aminotransferase 15 U/L (10-49); Albumin, Serum 4.2 gm/dL (3.4-4.8); Albumin/Globulin Ratio 2.0 (1.2-2.2); Alkaline Phosphatase 137 U/L (46-116); Anion Gap 10 (7-16); Aspartate Amino Transferase 27 U/L (0-34); BUN/Creatinine Ratio 14 Ratio (12-20); Bilirubin,Total 0.3 mg/dL (0.3-1.2); Blood Urea Nitrogen 15 mg/dL (9-23); Calcium 8.8 mg/dL (8.3-10.6); Calcium (Corrected) 8.8 mg/dL (8.5-10.1); Carbon Dioxide 23.6 mMol/L (20.0-31.0); Chloride 101 mMol/L (98-107); Creatinine (Component) 1.1 mg/dL (0.6-1.3); Free T4 (Free Thyroxine) 1.60 ng/dL (0.89-1.76); Globulin 2.1 gm/dL (2.3-3.5); Glucose 151 mg/dL (74-106); Osmolality,Calculated 273 (275-295); Potassium 4.0 mMol/L (3.4-5.1); Sodium 135 mMol/L (136-145); Thyroid Stimulating Hormone 1.38 uIU/mL (0.55-4.78); Total Protein 6.3 gm/dL (5.7-8.2); eGFR 51 See Note
[2025-07-10 06:23] LABS: CA 19-9 Antigen* 6 U/mL (<34)
[2025-07-16 11:18] LABS: Basophils # (Auto) 0.1 Thou/mm3 (0.0-0.2); Basophils % (Auto) 1 % (0-2.5); Eosinophils # (Auto) 0.1 Thou/mm3 (0.0-0.5); Eosinophils % (Auto) 1 % (0-10); Hematocrit 29.4 % (36.0-46.0); Hemoglobin 9.9 g/dL (12.0-16.0); Immature Granulocytes Auto 0.02 Thou/mm3 (0.00-0.00); Lymphocytes # (Auto) 0.9 Thou/mm3 (1.0-4.8); Lymphocytes % (Auto) 13 % (10-50); Mean Corpuscular HGB Conc 33.7 g/dl (31.0-37.0); Mean Corpuscular Hemoglobin 31.5 pg (25.0-35.0); Mean Corpuscular Volume 94 fL (80-100); Monocytes # (Auto) 0.7 Thou/mm3 (0.0-0.8); Monocytes % (Auto) 10 % (0-12); Neutrophils # (Auto) 5.1 Thou/mm3 (1.8-7.7); Neutrophils % (Auto) 75 % (37-80); Nucleated Red Blood Cell # 0.00 Thou/mm3 (0.00-0.00); Nucleated Red Blood Cell % 0 /100 WBC (0); Platelet Count 108 Thou/mm3 (140-440); RDW Standard Deviation 51.3 fL (36.4-46.3); Red Blood Count 3.14 Miln/mm3 (4.00-5.20); White Blood Count 6.8 Thou/mm3 (3.6-11.0)
[2025-07-16 11:34] LABS: Magnesium 1.6 mg/dL (1.6-2.6)
[2025-07-16 11:37] LABS: Alanine Aminotransferase 14 U/L (10-49); Albumin, Serum 4.4 gm/dL (3.4-4.8); Albumin/Globulin Ratio 2.0 (1.2-2.2); Alkaline Phosphatase 118 U/L (46-116); Anion Gap 10 (7-16); Aspartate Amino Transferase 28 U/L (0-34); BUN/Creatinine Ratio 15 Ratio (12-20); Bilirubin,Total 0.4 mg/dL (0.3-1.2); Blood Urea Nitrogen 16 mg/dL (9-23); Calcium 8.6 mg/dL (8.3-10.6); Calcium (Corrected) 8.6 mg/dL (8.5-10.1); Carbon Dioxide 23.4 mMol/L (20.0-31.0); Chloride 101 mMol/L (98-107); Creatinine (Component) 1.1 mg/dL (0.6-1.3); Free T4 (Free Thyroxine) 1.47 ng/dL (0.89-1.76); Globulin 2.2 gm/dL (2.3-3.5); Glucose 107 mg/dL (74-106); Osmolality,Calculated 269 (275-295); Potassium 4.0 mMol/L (3.4-5.1); Sodium 134 mMol/L (136-145); Thyroid Stimulating Hormone 1.48 uIU/mL (0.55-4.78); Total Protein 6.6 gm/dL (5.7-8.2); eGFR 51 See Note
== END 2025-07-22 23:59 | disposition home or self-care (01) ==
LOC: SCTC 08:52
PROVIDERS: PCP Family Medicine; Referring Provider Family Medicine; Visit Provider Internal Medicine Hematology & Oncology
DX: Z51.11 Encounter for antineoplastic chemotherapy (principal); C23 Malignant neoplasm of gallbladder; Z90.49 Acquired absence of other specified parts of digestive tract; R91.1 Solitary pulmonary nodule; K76.89 Other specified diseases of liver
CPT/HCPCS: 36591; 80053; 82378; 83735; 84439; 84443; 85025; 86301; 96367; 96368; 96372; 96375; 96413; 96417; A4216; J1100; J1434; J1642; J1938; J2151; J2405; J3475; J3480; J3490; J7040; J7050; J9060; J9173; J9201; Q5101

== ENCOUNTER → 2025-07-25 | Outpatient (CLI) | payer MEDICARE, MEDICAID, SELFPAY ==
--- NOTE | 2025-07-25 14:53 | XR_ITS ---
Examination: CT chest with intravenous contrast CT abdomen with intravenous contrast CT pelvis with intravenous contrast CT chest without intravenous contrast CT abdomen without and with contrast CT pelvis without intravenous contrast 2-D coronal reconstructions 2-D sagittal reconstructions Date and time of exam: July 25, 2025, 1612 hours, comparison PET/CT scan 05/08/2025, CT chest abdomen pelvis January 22, 2025 INDICATIONS: Diagnosis gallbladder cancer, PET CT scan June 01, 2024 3 mm pulmonary nodule left upper lobe 15 mm hypermetabolic anterior right lobe liver lesion, PET/CT scan 05/08/2025 hypermetabolic focus anterior margin of liver 7 mm, CT chest January 22, 2025 3 mm pulmonary nodule left upper lobe. CTDI: vol (mGy) 27.7 DLP: (mGycm) 1233 Technique: Multiple axial sections of the chest abdomen pelvis pre and post 16 cc [id number] 64 slice high-resolution scanner used. 3 mm axial sections have been obtained, 2-D sagittal, coronal reconstructions obtained. Low dose protocols were performed. One or more of the following dose reduction techniques were used; automated exposure control, adjustment of the mA and/or KV according to patient size, use of iterative reconstruction technique. Findings: No thoracic aortic aneurysm dilatation Pulmonary artery segments are not enlarged Heavy calcification left anterior descending coronary artery No paratracheal tracheobronchial or bronchopulmonary adenopathy 3 mm pulmonary nodule left upper lobe No new pulmonary nodules No pneumonia or pulmonary edema or pleural disease Exophytic anterior right lobe liver lesion measures 11 mm compared to 15 mm on the January 22, 2025 exam No enhancing liver lesions noted Absent gallbladder No common hepatic or common bile duct stones Spleen is not enlarged No pancreatic mass The adrenal glands are normal Stable splenic cyst Moderate renal scarring No interval abdominal or pelvic lymphadenopathy Normal appendix 39 mm umbilical hernia containing small bowel but no incarcerated bowel Atrophic uterus Urinary bladder intact Severe osteopenia IMPRESSION: Stable 3 mm pulmonary nodule left upper lobe compared to August 07, 2024, no new pulmonary nodules Exophytic anterior upper right lobe liver lesion measures 11 mm compared to 15 mm on January 22, 2025 No interval enhancing liver lesions noted No interval abdominal or pelvic lymphadenopathy Normal adrenal glands 39 mm umbilical hernia containing small bowel but no incarcerated bowel
== END | disposition home or self-care (01) ==
LOC: SCAT 14:39
PROVIDERS: PCP Family Medicine; Referring Provider Internal Medicine Hematology & Oncology; Visit Provider Internal Medicine Hematology & Oncology
DX: R91.1 Solitary pulmonary nodule (principal); K76.9 Liver disease, unspecified; K42.9 Umbilical hernia without obstruction or gangrene; C24.9 Malignant neoplasm of biliary tract, unspecified; C23 Malignant neoplasm of gallbladder
CPT/HCPCS: 71270; 74178; A4649; Q9967

== ENCOUNTER 2025-08-15 08:19 | Outpatient (RCR) | payer MEDICARE, MEDICAID, SELFPAY ==
--- NOTE | 2025-07-30 10:59 | CTCFLWUP_ITS ---
Patient: KERRY RAMIREZ : 1945 Page 4 of 6 FOLLOW UP NOTE DATE OF SERVICE: 07/30/2025 NAME: KERRY RAMIREZ ACCOUNT: [id number] : 1945 AGE: 80 INTERVAL HISTORY: Visit summary Kerry Ramirez, a female with stage 4 gallbladder adenocarcinoma, presented for chemotherapy discussion. Her history includes T2N1 gallbladder adenocarcinoma diagnosed February 2024 following cholecystectomy, with subsequent PET-CT showing liver and lung lesions. Diagnostic laparoscopy in September 2024 confirmed peritoneal disease. Recent CT shows further decrease in the size of lesion and no new lesions. Patient has completed 8 cycles and now will be on maintenance immunotherapy. Patient is also noted to have a severe iron deficiency anemia and will be started on iron infusions. Will see patient in 2 months and continue durvalumab and iron therapy Chief Complaint Follow-up for stage 4 gallbladder cancer, on chemotherapy doing well History of Present Illness Kerry Ramirez is a patient with a history of gallbladder adenocarcinoma presenting for follow-up and discussion of chemotherapy treatment. The patient was diagnosed with stage 4 gallbladder cancer in September 2024 following a gallstone and choledocholithiasis surgery performed on February 25, 2024. The pa thology report from the surgery revealed a 1.2 cm T2N1 gallbladder adenocarcinoma with negative margins. Following her initial diagnosis, the patient underwent a PET-CT scan on June 01, 2024, which showed a 3 mm left upper lobe lung nodule and a 15 mm right anterior liver lesion concerning for metastatic disease. She was subsequently referred for surgical evaluation, and on October 09, 2024, underwent a diagnostic laparoscopy. During the procedure, studding along the falciform ligament was found, indicating peritoneal disease. Pathology confirmed malignancy. Ms. Ramirez was then referred for therapeutic discussion, where cisplatin gemcitabine and durvalumab treatment for 6 months, followed by durvalumab maintenance, was recommended based on the TOPAZ-1 trial. A recent CT scan showed a decrease in the size of the liver lesion to 1.1 cm, with no new or enlarging metastases. Patient has completed 8 cycles of chemotherapy. Patient will be continued on maintenance immunotherapy medical History - Gallbladder adenocarcinoma, stage 4, diagnosed in September 2024 - Gallstone and choledocholithiasis, diagnosed on February 25, 2024 Surgical History - Diagnostic laparoscopy on 10-09-2024, revealing peritoneal disease - Cholecystectomy on 02-25-2024 for gallstone and choledocholithiasis, without bile spillage Social History - Living Situation: Patient has a Objective Laboratory, Imaging, and Diagnostic Test Results - PET-CT scan (06/01/2024): - 3 mm left upper lobe lung nodule - 15 mm right anterior liver lesion - Diagnostic laparoscopy (10/09/2024): - Intraoperative findings: Studding along the falciform ligament - Pathology: Consistent with malignancy - CA 19-9: Not measurable - CEA: Normal (specific value not provided) - CT scan (07/25/2025): Stable 3 mm pulmonary nodule left upper lobe compared to August 07, 2024 no new pulmonary nodules. Exophytic anterior upper right liver lesion measures 11 mm compared to 15 cm on January 22, 2025. No interval enhancing liver lesions noted ONCOLOGY HISTORY:?[facility] Hx? DIAGNOSIS: Stage IV adenocarcinoma of gallbladder Initially stage IIIb(pT2a, PN 1, 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 Ramirez recently had cholecystectomy done 8 [facility]. Surgical pathology specimen showed stage IIIb poorly differentiated adenocarcinoma of the gallbladder. Pathology is documented below. Ms. Ramirez has recovered very well from the surgery. She denies any abdominal pain today. Denies any nausea vomiting, diarrhea or constipation. Ambulating well without any help. Has good appetite and good energy level DATE OF DIAGNOSIS: 02/26/2024 STAGE/TNM: Stage IIIb(pT2a, PN 1, M0) poorly differentiated adenocarcinoma of the gallbladder, s/p cholecystectomy September 2024 confirmed as stage IV TREATMENT HISTORY: Care?Plan Start?Date Cycle Day Intent Durvalumab,?cisplatin?and?gemcitabine?cholangiocarcinoma?regimen?1 01/30/2025 1 21 Palliative Durvalumab?maintenance?cholangiocarcinoma?regimen?2 08/08/2025 1 28 Palliative HISTORY OF PRESENT ILLNESS: Kerry Ramirez is a 80-year-old SPA speaking Other female with following oncology history. 02/24/2024: Ms. Ramirez was seen here at [facility] emergency room because of right upper quadrant abdominal pain with radiation into right upper chest. 02/24/2024: CT scan of the abdomen and pelvis with IV contrast 02/25/2024: Ms. Ramirez had MRI of the abdomen without contrast as well as MRCP 02/25/2024: Ms. Ramirez is referred to [facility] for ERCP. 02/26/2024: Ms. 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 Tobacco?Use:?Denies ETOH?Use:?Denies Drug?Note:?Denies Social?History?Note:?Lives?with? CHEMICAL [employer]ENGTH TESTER HISTORY: Menarche?-?Age:?15 Menopause:?Age?54 :?6 Live?Births:?6 Age?1st?:?24 MEDICATIONS: 1. alendronate - 35 mg 1 tab Weekly 2. atorvastatin - 10 mg 1 tab Daily 3. Compazine - 5 mg 5 mg Daily 4. losartan - 100 mg 1 tab Daily 5. multivitamin - 1 Capsule Daily 6. ondansetron - 8 mg 8 mg Daily?Palabra Meds? Medications Last Reconciled by Griselda Martel MD on 05/30/2025 ALLERGIES: No Known Drug Allergies REVIEW OF SYSTEMS: A complete 14-point review of systems was performed and is negative except as noted in interval history. PHYSICAL EXAMINATION:?CloneBlock PE? VITAL SIGNS: PAIN: 0 - No pain ECOG Performance Status: 1 - Symptomatic; ambulatory; restricted in strenuous activity GENERAL APPEARANCE: Appears well, in no apparent distress, appropriately interactive. HEENT: Normocephalic, no temporal wasting, normal conjunctiva, no scleral icterus, normal hearing, lips without lesions, neck normal range of motion. CARDIOVASCULAR: Not assessed. PULMONARY: Normal respiratory effort, no respiratory distress or use of accessory muscles, speaking in full sentences, no tachypnea. EXTREMITIES: No pedal edema or cyanosis. SKIN: Normal skin appearance. NEUROLOGIC: Alert and oriented x4. PSHYCHIATRIC: Appropriate affect, mood normal, behavior normal, intact thought and speech. LABORATORY DATA: I have personally reviewed and interpreted each of the patient?s relevant lab tests, abnormal findings are below: Date 07/04/25 07/16/25 ??WHITE?BLOOD?COUNT?(Thou/mm3) ? 6.8 ??RED?BLOOD?COUNT?(Miln/mm3) ? 3.14?L ??HEMOGLOBIN?(gm/dl) ? 9.9?L ??HEMATOCRIT?(%) ? 29.4?L ??PLATELET?COUNT?(Thou/mm3) ? 108?L ??NEUTROPHILS?%,?AUTO?(%) ? 75 ??LYMPH?%,?AUTO?(%) ? 13 ??NEUTROPHILS,?AUTO?(Thou/mm3) ? 5.1 ??GLUCOSE,RANDOM?(mg/dL) ? 107?H ??BLOOD?UREA?NITROGEN?(mg/dL) ? 16 ??CREATININE?(mg/dL) ? 1.10 ??SODIUM?(mmol/L) ? 134?L ??POTASSIUM?(mmol/L) ? 4.0 ??CHLORIDE?(mmol/L) ? 101 ??CrCl?(CandG)?(ml/min) ? 37.21 ??AST/SGOT?(Unit/L) ? 28 ??ALT/SGPT?(Unit/L) ? 14 ??ALKALINE?PHOSPHATASE?(Unit/L) ? 118?H ??BILIRUBIN,?TOTAL?(mg/dL) ? 0.4 ??PROTEIN?TOTAL?(gm/dl) ? 6.6 ??ALBUMIN,?SERUM?(gm/dl) ? 4.4 ??GLOBULIN?(gm/dl) ? 2.2?L ??ALBUMIN/GLOBULIN?RATIO ? 2.0 ??CALCIUM,?SERUM?(mg/dL) ? 8.6 ??CALCIUM?SERUM?(CORRECTED)?(mg/dL) ? 8.6 ??MAGNESIUM?(mg/dL) 1.6 1.6 ASSESSMENT/PLAN:?Hari Gentile Assessment/Plan? Initially presented as stage IIIb(pT2a, 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 Patient was advised to start adjuvant capecitabine but patient never started therapy. Patient waited as family wanted to confirm with [facility] before starting chemotherapy. Patient was seen by Dr. Chan hepatobiliary surgeon for possible debridement of gall bladder bed and liver resection. Patient underwent laparoscopy which confirmed peritoneal lesions as stage IV gallbladder cancer. Stage 4 Gallbladder Adenocarcinoma Assessment: Patient was initially diagnosed with T2N1 gallbladder adenocarcinoma (1.2 cm) in February 2024 following surgery for gallstone and choledocholithiasis. She did not receive adjuvant chemotherapy at that time. A PET-CT scan in May 2024 revealed a 3 mm left upper lobe lung nodule and a 15 mm right anterior liver lesion concerning for metastatic disease. Diagnostic laparoscopy in September 2024 confirmed peritoneal disease. Recent CT scan showed a decrease in the size of the liver lesion to 1.3 cm, with no new or enlarging metastases. The patient has been recommended to start chemotherapy, which should have been initiated earlier based on the September recommendation from [facility]. Patient w as started on combination chemoimmunotherapy based on [place] trial. Patient completed cisplatin gemcitabine and durvalumab for 8 cycles and now will be continued on maintenance durvalumab Plan: Continue maintenance durvalumab CT scan is stable Found to have severe iron deficiency and anemia Will start on IV iron Informed consent obtained for starting IV iron as well as to continue immunotherapy. Spoke to patient and patient's translated for patient. Patient endorses that her is her decision-maker RETURN TO CLINIC: I reviewed the diagnosis, prognosis, and recommended treatment/procedure options with the patient (and/or their legal inside sales account representative), including the potential benefits, risks, side effects and alternative therapies. We also discussed the option of no treatment and the possibility of clinical trial participation, if applicable. All questions were addressed, and they demonstrated understanding. They provided informed consent to proceed with the proposed plan of care. BILLING AND COMPLIANCE: I reviewed external records from providers outside my specialty as summarized above. I spent a total of 50 minutes on this patient?s care on the day of their visit excluding time spent related to any billed procedures. This time includes time spent with the patient as well as time spent documenting in the medical record, reviewing patients records and tests, obtaining history, placing orders, communicating with other healthcare professionals, counseling the patient, family or caregiver, and/or care coordination for the diagnoses above. Electronically Signed by: Daniel Gentile MD T: 10:57 AM CC: PCP: Josh Watkins Referring: Josh Watkins This document was completed utilizing speech recognition software. Grammatical errors, random word insertions, pronoun errors, and incomplete sentences are an occasional consequence of this system due to software limitations, ambient noise, and hardware issues. Any formal questions or concerns about the content, text or information contained within the body of this dictation should be directly addressed to the provider for clarification.
[2025-08-07 16:15] LABS: Basophils # (Auto) 0.1 Thou/mm3 (0.0-0.2); Basophils % (Auto) 1 % (0-2.5); Eosinophils # (Auto) 0.2 Thou/mm3 (0.0-0.5); Eosinophils % (Auto) 2 % (0-10); Hematocrit 33.6 % (36.0-46.0); Hemoglobin 11.1 g/dL (12.0-16.0); Immature Granulocytes Auto 0.04 Thou/mm3 (0.00-0.00); Lymphocytes # (Auto) 1.4 Thou/mm3 (1.0-4.8); Lymphocytes % (Auto) 17 % (10-50); Mean Corpuscular HGB Conc 33.0 g/dl (31.0-37.0); Mean Corpuscular Hemoglobin 30.9 pg (25.0-35.0); Mean Corpuscular Volume 94 fL (80-100); Monocytes # (Auto) 0.6 Thou/mm3 (0.0-0.8); Monocytes % (Auto) 8 % (0-12); Neutrophils # (Auto) 5.9 Thou/mm3 (1.8-7.7); Neutrophils % (Auto) 72 % (37-80); Nucleated Red Blood Cell # 0.00 Thou/mm3 (0.00-0.00); Nucleated Red Blood Cell % 0 /100 WBC (0); Platelet Count 265 Thou/mm3 (140-440); RDW Standard Deviation 52.8 fL (36.4-46.3); Red Blood Count 3.59 Miln/mm3 (4.00-5.20); White Blood Count 8.2 Thou/mm3 (3.6-11.0)
[2025-08-07 16:34] LABS: Alanine Aminotransferase 14 U/L (10-49); Albumin, Serum 4.6 gm/dL (3.4-4.8); Albumin/Globulin Ratio 1.6 (1.2-2.2); Alkaline Phosphatase 149 U/L (46-116); Anion Gap 11 (7-16); Aspartate Amino Transferase 32 U/L (0-34); BUN/Creatinine Ratio 14 Ratio (12-20); Bilirubin,Total 0.5 mg/dL (0.3-1.2); Blood Urea Nitrogen 14 mg/dL (9-23); Calcium 9.1 mg/dL (8.3-10.6); Calcium (Corrected) 9.1 mg/dL (8.5-10.1); Carbon Dioxide 23.9 mMol/L (20.0-31.0); Chloride 105 mMol/L (98-107); Creatinine (Component) 1.0 mg/dL (0.6-1.3); Globulin 2.8 gm/dL (2.3-3.5); Glucose 94 mg/dL (74-106); Osmolality,Calculated 279 (275-295); Potassium 3.6 mMol/L (3.4-5.1); Sodium 140 mMol/L (136-145); Thyroid Stimulating Hormone 2.34 uIU/mL (0.55-4.78); Total Protein 7.4 gm/dL (5.7-8.2); eGFR 57 See Note
== END 2025-08-22 23:59 | disposition home or self-care (01) ==
LOC: SCTC 08:19
PROVIDERS: PCP Family Medicine; Referring Provider Family Medicine; Visit Provider Internal Medicine Hematology & Oncology
DX: Z51.11 Encounter for antineoplastic chemotherapy (principal); C23 Malignant neoplasm of gallbladder; D50.9 Iron deficiency anemia, unspecified; Z90.49 Acquired absence of other specified parts of digestive tract; R91.1 Solitary pulmonary nodule; K76.89 Other specified diseases of liver
CPT/HCPCS: 36591; 80053; 84443; 85025; 96365; 96367; 96372; 96375; 96413; 99213; A4216; J1642; J1756; J2405; J2919; J3490; J7040; J9173; Q5101; G0463